=== PATIENT | female | born 1945 | race Caucasian/White ===

== ENCOUNTER 2018-10-09 10:58 | Emergency (ER) | payer MEDICARE, OTHER ==
[2018-10-09] MEDS ORDERED: VECURONIUM BROMIDE INJ 10 MG VIAL IV ONE ×2 (11:04→13:39)
--- NOTE | 2018-10-09 11:07 | ER Document Report ---
ED Respiratory Problem - General Mode of Arrival: Medic Information source: Relative, Emergency Med Personnel <ESTRELLITA HOFF - Last Filed: 10/09/18 16:14> <ZAHRAVIRYSAGE - Last Filed: 10/09/18 16:19> - General Chief Complaint: Respiratory Distress Stated Complaint: DIFFICULTY BREATHING Notes: 73 year old female that presents to the emergency department today for altered mental status. EMS states they were called for a "possible stroke". EMS reports that the told him that the patient had been "sitting in the same seat since 1600 yesterday". EMS states that the patient was confused upon arrival with an oxygen saturation of 60% with a heart rate of 120. EMS states that the was unable to provide any meaningful history and denied any history of past medical problems. Speaking to the shortly after arrival he did not provide any history of meaningful past medical problems but upon review of records it does state that the patient has renal insufficiency. (ESTRELLITA HOFF) - Related Data Allergies/Adverse Reactions: No Known Allergies Allergy (Verified 10/09/18 13:16) Past Medical History - General Information source: Relative, Emergency Med Personnel Cannot obtain history due to: Altered mental status - Social History Smoking Status: Current Every Day Smoker Cigarette use (# per day): Yes Family History: Reviewed & Not Pertinent Renal/ Medical History: Reports: Hx Renal Insufficiency <ESTRELLITA HOFF - Last Filed: 10/09/18 16:14> Review of Systems - Review of Systems -: Yes ROS unobtainable due to patient's medical condition <ESTRELLITA HOFF - Last Filed: 10/09/18 16:14> Physical Exam <ESTRELLITA HOFF - Last Filed: 10/09/18 16:14> - Vital signs Vitals: Resp Pulse Ox 28 H 100 10/09/18 11:00 10/09/18 11:00 - Notes Notes: PHYSICAL EXAM GENERAL: Unresponsive. Being bagged by EMS. HEAD: Normocephalic, atraumatic. EYES: Pupils equal, round, and reactive to light. ENT: Oral mucosa moist, tongue midline. Edentulous, upper dentures in place. Tooth #9 is chipped. NECK: Trachea midline. LUNGS: Very rapid and very shallow breathing. Wheezing and crackles bilaterally. HEART: Tachycardic, regular rhythm. No murmurs, gallops, or rubs. EXTREMITIES: Moves all 4 extremities spontaneously. No edema. NEUROLOGICAL: Unresponsive. Does not follow commands. Withdraws to pain. Slight movements to shouting. SKIN: Warm, dry, normal turgor. No rashes or lesions noted. Ecchymosis in various stages of healing. (ESTRELLITA HOFF) Course - Laboratory Result Diagrams: 10/09/18 11:01 10/09/18 11:01 <ESTRELLITA HOFF - Last Filed: 10/09/18 16:14> - Laboratory Result Diagrams: 10/09/18 11:01 10/09/18 11:01 <SAGE GUSTAFSON - Last Filed: 10/09/18 16:19> - Re-evaluation Re-evalutation: 10/09/18 13:51 On arrival patient was not maintaining her own airway well, was breathing very shallowly and very rapidly, not oxygenating well so the decision was made to intubate her. We did discuss with the in advance who states that she does not have any living will or desire not to be intubated. Gave us verbal permission to intubate the patient. Intubation went well without any diffic ulty, patient did become somewhat hypotensive so a left-sided IJ was started, pressure then recovered with a liter of fluid so initially pressors were not started however after approximately 2 hours on the ventilator pressure did decrease so she is being started on a small amount of levo fed, chest x-ray shows COPD and is some cephalization consistent with pulmonary vascular congestion, CBC shows leukocytosis with white count of 18.5, hemoglobin is low with a hemoglobin of 7.9, patient is being given 1 unit of PRBCs and then will be rechecked, platelets high at 452, INR slightly prolonged at 1.1, initial venous blood gas shows a pH of 7.11 and a PCO2 of 98.5, blood gas was rechecked 30 minutes later and even though it was put in for an arterial blood gas it appears to be venous, this shows a pH of 7.21 and a PCO2 of 70.3, this is improving, this is thought to be venous as the saturation is 81.1 and this is not at all close to what her oxygen saturation was at the time that this blood g as was drawn, she does have a BUN of 34 and a creatinine of 1.6, patient is known to have renal failure by review of records however we do not have old BUN and creatinine to compare to, only a record that she has seen Dr. Waters, lactic acid is normal, AST and ALT are both elevated alk phos is normal, CK, CK- MB and troponin are all elevated at 582, with 12.3, 0.468 respectively, patient also has elevated proBNP at 14,800. All this is consistent with a patient who is having an acute hypoxic hypercapnic exacerbation of COPD causing renal failure, non-STEMI and congestive heart failure. Patient is getting Lasix, aspirin per rectum, heparin drip and pressors. is aware of all of this, agrees with decision to transfer, request transferred to [facility]. Discussed patient with Dr. Naidu at [facility] who agrees to accept the patient to his service and is in the cardiovascular ICU. Patient is not eligible for admission to this hospital as she has new onset congestive failure in the setting of a non-STEMI. 10/09/18 16:18 Late entry, I did personally recheck the patient with the helicopter crew at bedside, presented the patient and history to the helicopter crew. Patient was stable for transport at that time. (SAGE GUSTAFSON) - Vital Signs Vital signs: Temp Pulse Resp BP Pulse Ox 16 127/58 H 94 10/09/18 14:51 10/09/18 14:54 10/09/18 14:54 - Laboratory Laboratory results interpreted by me: 10/09/18 10/09/18 10/09/18 11:01 11:01 11:01 WBC 18.5 H RBC 3.48 L Hgb 7.9 L Hct 27.5 L MCV 79 L MCH 22.8 L MCHC 28.9 L RDW 19.1 H Plt Count 452 H Seg Neutrophils % 81.9 H Lymphocytes % 10.8 L Absolute Neutrophils 15.2 H Carbonic Acid ABG pH ABG pCO2 ABG pO2 ABG HCO3 ABG Total CO2 ABG O2 Saturation VBG pH 7.11 L* VBG pCO2 98.5 H* BUN 34 H Creatinine 1.60 H Est GFR ( Amer) 38 L Est GFR (Non-Af Amer) 31 L Glucose 130 H AST 473 H ALT 164 H Creatine Kinase 582 H CK-MB (CK-2) NT-Pro-B Natriuret Pep Urine Protein Urine Blood Crossmatch 10/09/18 10/09/18 10/09/18 11:01 11:01 11:38 WBC RBC Hgb Hct MCV MCH MCHC RDW Plt Count Seg Neutrophils % Lymphocytes % Absolute Neutrophils Carbonic Acid 2.12 H ABG pH 7.21 L ABG pCO2 70.3 H* ABG pO2 55.3 L ABG HCO3 27.7 H ABG Total CO2 29.9 H ABG O2 Saturation 81.1 L VBG pH VBG pCO2 BUN Creatinine Est GFR ( Amer) Est GFR (Non-Af Amer) Glucose AST ALT Creatine Kinase CK-MB (CK-2) 12.30 H NT-Pro-B Natriuret Pep 13363 H Urine Protein Urine Blood Crossmatch 10/09/18 10/09/18 10/09/18 12:04 13:19 14:11 WBC RBC Hgb Hct MCV MCH MCHC RDW Plt Count Seg Neutrophils % Lymphocytes % Absolute Neutrophils Carbonic Acid 1.85 H ABG pH 7.24 L ABG pCO2 61.4 H ABG pO2 65.4 L ABG HCO3 25.9 H ABG Total CO2 27.8 H ABG O2 Saturation 88.8 L VBG pH VBG pCO2 BUN Creatinine Est GFR ( Amer) Est GFR (Non-Af Amer) Glucose AST ALT Creatine Kinase CK-MB (CK-2) NT-Pro-B Natriuret Pep Urine Protein 30 H Urine Blood SMALL H Crossmatch See Detail - EKG Interpretation by Me Additional EKG results interpreted by me: 10/09/18 13:52 EKG shows sinus tachycardia at a rate of 105, normal axis, normal intervals, no ST segment elevations or depressions, no T wave inversions per my interpretation. (SAGE GUSTAFSON) Procedures - Central Line Left Internal jugular Consent obtained: No - emergent Central line pre-insertion: Sterile PPE donned, Chloraprep applied, Sterile drapes applied Central line size (Fr.): 20 Central line lumen type: Triple Ultrasound guided: Yes CM at insertion site: 18 Line secured with sutures: Yes Central line post-insertion: Blood return from lumens, Biopatch applied, Sutured, Sterile dressing applied, Position confirmed w/ CXR Number of attempts: 1 Complications: No - Intubation Orotracheal Airway evaluation: Normal anatomy Mallampati Classification: Class 2 Medications: Etomidate, Vecuronium Intubation method: Orotracheal Blade type: Carolina Blade size: 4 ETT size: 8.0 ETT secured at: Gums ETT secured at (cm): 22 Breath Sounds after Intubation: Equal End tidal CO2 confirmed: Yes Ventilator settings: SIMV Tidal volume: 400 FiO2: 60 Respirations: 16 Pressure support: 10 PEEP: 5 Post Intubation Xray: Yes Intubation Complications: No complications <SAGE GUSTAFSON - Last Filed: 10/09/18 16:19> Critical Care Note - Critical Care Note Total time excluding time spent on procedures (mins): 85 <SAGE GUSTAFSON - Last Filed: 10/09/18 16:19> Discharge <ESTRELLITA HOFF - Last Filed: 10/09/18 16:14> <SAGE GUSTAFSON - Last Filed: 10/09/18 16:19> - Discharge Clinical Impression: Acute respiratory failure with hypoxia and hypercapnia, NSTEMI (non-ST elevated myocardial infarction) Congestive heart failure Qualifiers: Heart failure type: unspecified Heart failure chronicity: acute Qualified Code(s): I50.9 - Heart failure, unspecified Kidney failure Qualifiers: Renal failure chronicity: chronic Chronic kidney disease stage: stage 3 (moderate) Qualified Code(s): N18.3 - Chronic kidney disease, stage 3 (moderate) Anemia Qualifiers: Anemia type: unspecified type Qualified Code(s): D64.9 - Anemia, unspecified Condition: Critical Disposition: [facility] Referrals: GENESIS HARDIN MD [NO LOCAL MD] - Follow up as needed Scribe Attestation: 10/09/18 16:19 I personally performed the services described in the documentation, reviewed and edited the documentation which was dictated to the scribe in my presence, and it accurately records my words and actions. (SAGE GUSTAFSON) Scribe Documentation - Scribe Written by Xavier:: Xavier Marroquin, 10/09/2018 1528 acting as scribe for :: Eleazar <ESTRELLITA HOFF - Last Filed: 10/09/18 16:14>
[2018-10-09] MEDS ORDERED: MIDAZOLAM HCL 50 MG/100 ML RTUINJ ONE (11:11)
[2018-10-09] MEDS ORDERED: ETOMIDATE INJ/PF 20 MG/10 ML SDV IV ONE ×2 (11:11→13:39)
[2018-10-09] MEDS ORDERED: NORMAL SALINE 1000 ML 1,000 ML IV ONE (11:14)
[2018-10-09 11:37] LABS: VENOUS BLOOD BASE EXCESS -0.5 mmol/L; VENOUS BLOOD HCO3 30.2 mmol/L (20-32)
[2018-10-09 11:39] LABS: ABSOLUTE MONOCYTES (AUTO) 1.3 10^3/uL (0.1-1.4); ABSOLUTE NEUT (AUTO) 15.2 10^3/uL (1.7-8.2); BASOPHILS % (AUTO) 0.2 % (0-2); HEMATOCRIT 27.5 % (36.0-47.0); LYMPHOCYTES % (AUTO) 10.8 % (13-45); MEAN CORPUSCULAR HEMOGLOBIN 22.8 pg (27.0-33.4); MEAN CORPUSCULAR HGB CONC 28.9 g/dL (32.0-36.0); MEAN CORPUSCULAR VOLUME 79 fl (80-97); MONOCYTES % (AUTO) 7.1 % (3-13); PLATELET COUNT 452 10^3/uL (150-450); RED BLOOD COUNT 3.48 10^6/uL (3.72-5.28); RED CELL DISTRIBUTION WIDTH 19.1 % (11.5-14.0); SEGMENTED NEUTROPHILS % (AUTO) 81.9 % (42-78); TOTAL CELLS COUNTED % (AUTO) 100 %; VENOUS BLOOD PCO2 98.5 mmHg (35-63); VENOUS BLOOD PH 7.11 (7.30-7.42); WHITE BLOOD COUNT 18.5 10^3/uL (4.0-10.5)
[2018-10-09 11:40] LABS: PROTHROMBIN TIME 14.8 SEC (11.4-15.4)
[2018-10-09] MEDS ORDERED: MIDAZOLAM HCL 50 MG/100 ML RTUINJ IV PRN ×2 (11:42→13:39)
[2018-10-09 11:43] LABS: HEMOGLOBIN 7.9 g/dL (12.0-15.5)
[2018-10-09 11:44] LABS: ALANINE AMINOTRANSFERASE 164 U/L (9-52); ALBUMIN 3.6 g/dL (3.5-5.0); ALKALINE PHOSPHATASE 102 U/L (38-126); ANION GAP 7 (5-19); ASPARTATE AMINO TRANSFERASE 473 U/L (14-36); BILIRUBIN,DIRECT 0.3 mg/dL (0.0-0.4); BILIRUBIN,TOTAL 0.4 mg/dL (0.2-1.3); BLOOD UREA NITROGEN 34 mg/dL (7-20); CALCIUM 8.5 mg/dL (8.4-10.2); CARBON DIOXIDE 30 mmol/L (22-30); CHLORIDE 102 mmol/L (98-107); CREATINE KINASE 582 U/L (30-135); GLUCOSE 130 mg/dL (75-110); POTASSIUM 4.8 mmol/L (3.6-5.0); SODIUM 138.5 mmol/L (137-145); TOTAL PROTEIN 7.1 g/dL (6.3-8.2)
[2018-10-09] MEDS ORDERED: NORMAL SALINE 250 ML IV PRN (11:44)
--- NOTE | 2018-10-09 11:45 | RADIOLOGY REPORT (SQ) ---
EXAM DESCRIPTION: CHEST SINGLE VIEW COMPLETED DATE/TIME: 10/09/2018 11:27 am REASON FOR STUDY: intubation COMPARISON: None. NUMBER OF VIEWS: One view. TECHNIQUE: Single frontal radiographic view of the chest acquired. LIMITATIONS: None. FINDINGS: LUNGS AND PLEURA: No opacities, masses or pneumothorax. No pleural effusion. Attenuated bl ood vessels and flattened sanchez-diaphragms. MEDIASTINUM AND HILAR STRUCTURES: No masses. Contour normal. HEART AND VASCULAR STRUCTURES: Heart normal in size. Normal vasculature. BONES: No acute findings. HARDWARE: Endotracheal tube with the tip located 2 cm proximal to the shay. Nasogastric tube with the tip located in the stomach. OTHER: No other significant finding. IMPRESSION: 1. LIFE LINES DESCRIBED IN SATISFACTORY POSITION. 2. COPD. NO ACUTE RADIOGRAPHIC FINDING IN THE CHEST. TECHNICAL DOCUMENTATION: JOB ID: [id number] [employer]- All Rights Reserved Reading location - IP/workstation name: [email or web address]
[2018-10-09 11:53] LABS: ARTERIAL BLOOD BASE EXCESS -0.4 mmol/L; ARTERIAL BLOOD H2CO3 2.12 mmol/L (1.05-1.35); ARTERIAL BLOOD HCO3 27.7 mmol/L (20-24); ARTERIAL BLOOD O2 SATURATION 81.1 % (94-98); ARTERIAL BLOOD PH 7.21 (7.35-7.45); ARTERIAL BLOOD PO2 55.3 mmHg (80-100); ARTERIAL BLOOD TOTAL CO2 29.9 mmol/L (21-25)
[2018-10-09 11:55] LABS: ARTERIAL BLOOD FIO2 60%
[2018-10-09 11:56] LABS: CREATINE KINASE MB 12.3 ng/mL (<4.55)
[2018-10-09 11:57] LABS: ARTERIAL BLOOD PCO2 70.3 mmHg (35-45)
[2018-10-09 11:58] LABS: TROPONIN I 0.468 ng/mL
[2018-10-09] MEDS ORDERED: NORMAL SALINE 1000 ML 1,000 ML IV PRN (12:17)
[2018-10-09] MEDS ORDERED: FUROSEMIDE INJ/PF 40 MG/4 ML SDV IV ONE (12:26)
[2018-10-09] MEDS ORDERED: ALBUTEROL SULFATE 0.083% NEB 2.5 MG/3 ML AMPUL NEB ONE (12:53)
[2018-10-09] MEDS ORDERED: ASPIRIN 300 MG SUPP, RECTAL PR ONE (12:53)
[2018-10-09] MEDS ORDERED: METHYLPREDNISOLONE INJ 125 MG/2 ML SDV IV ONE (12:53)
[2018-10-09] MEDS ORDERED: IPRATROPIUM/ALBUTEROL 0.5-2.5 MG/3 ML AMPUL NEB ONE (12:53)
[2018-10-09] MEDS ORDERED: HEPARIN SOD (PORCINE) 1,000 UNIT/ML 1 ML VIAL IV SCH (13:00)
--- NOTE | 2018-10-09 13:28 | RADIOLOGY REPORT (SQ) ---
EXAM DESCRIPTION: CHEST SINGLE VIEW COMPLETED DATE/TIME: 10/09/2018 1:16 pm REASON FOR STUDY: post-intubation COMPARISON: Earlier exam same date NUMBER OF VIEWS: One view. TECHNIQUE: Single frontal radiographic image of the chest acquired. LIMITATIONS: None. FINDINGS: ENDOTRACHEAL TUBE: Tip appears 2.1 cm above the level of the shay. OTHER SUPPORT DEVICES: New left IJ central venous catheter with tip overlying the RA -SVC junction. No pneumothorax. Nasogastric catheter tip is beyond the inferior margin of the image overlying the r egion of the stomach. CHANGES IN RADIOGRAPHIC FINDINGS: None. Stable appearance. HARDWARE: None in the chest. OTHER: No other significant finding. IMPRESSION: New left IJ central venous catheter with tip overlying the RA -SVC junction, no pneumoth orax. The remaining tubes lines are stable. TECHNICAL DOCUMENTATION: JOB ID: [id number] [place]-[id number] 2010 [employer]- All Rights Reserved Reading location - IP/workstation name: [email or web address]
[2018-10-09] MEDS ORDERED: DEXTROSE 5%-WATER 250 ML with NOREPINEPHRINE BITARTRATE 4 MG IV PRN ×2 (13:39)
[2018-10-09] MEDS ORDERED: NOREPINEPHRINE BITARTRATE INJ/PF 4 MG/4 ML SDV IV ONE (13:43)
[2018-10-09 13:45] LABS: APPEARANCE,URINE CLEAR; BILIRUBIN,URINE NEGATIVE (NEGATIVE); COLOR,URINE YELLOW; GLUCOSE, URINE NEGATIVE (NEGATIVE); KETONES,URINE NEGATIVE (NEGATIVE); LEUKOCYTE ESTERASE,URINE NEGATIVE (NEGATIVE); NITRITE,URINE NEGATIVE (NEGATIVE); PROTEIN,URINE 30 mg/dL (NEGATIVE); URINE SPECIFIC GRAVITY 1.015; UROBILINOGEN,URINE NEGATIVE mg/dL (<2.0)
[2018-10-09 14:20] LABS: ARTERIAL BLOOD BASE EXCESS -1.8 mmol/L; ARTERIAL BLOOD FIO2 50%; ARTERIAL BLOOD H2CO3 1.85 mmol/L (1.05-1.35); ARTERIAL BLOOD HCO3 25.9 mmol/L (20-24); ARTERIAL BLOOD O2 SATURATION 88.8 % (94-98); ARTERIAL BLOOD PCO2 61.4 mmHg (35-45); ARTERIAL BLOOD PH 7.24 (7.35-7.45); ARTERIAL BLOOD PO2 65.4 mmHg (80-100); ARTERIAL BLOOD TOTAL CO2 27.8 mmol/L (21-25)
[2018-10-09] MEDS ORDERED: SUCCINYLCHOLINE CHLORIDE INJ 200 MG/10 ML VIAL ONE (15:00)
[2018-10-09 15:12] VITALS: BP 127/58
--- NOTE | 2018-10-09 23:48 | EKG REPORT ---
SEVERITY:- OTHERWISE NORMAL ECG - SINUS TACHYCARDIA : Confirmed by: Malina Holt 09-Oct-2018 23:47:08
== END 2018-10-09 15:13 | disposition short-term general hospital (02) ==
LOC: ER 10:58
DX: I50.9 Heart failure, unspecified (principal); I21.4 Non-ST elevation (NSTEMI) myocardial infarction; J96.02 Acute respiratory failure with hypercapnia; J96.01 Acute respiratory failure with hypoxia; N18.3 Chronic kidney disease, stage 3 (moderate); D63.1 Anemia in chronic kidney disease; J44.9 Chronic obstructive pulmonary disease, unspecified; F17.210 Nicotine dependence, cigarettes, uncomplicated; R58 Hemorrhage, not elsewhere classified; K08.89 Other specified disorders of teeth and supporting structures; D72.829 Elevated white blood cell count, unspecified; R00.0 Tachycardia, unspecified
CPT/HCPCS: 93005; 94640; 99291; 99292; 96361; 51702; 96374; 96375; 86900; 86901; 36415; 87040; 87086; 82553; 36430; 86850; 82803 ×2; 82550; 85025; 85610; 80053; 81001; 84484; 86920; 83605; 83880; 71045; 94660; 93010; 31500; 36556; P9016; A9270 ×3; J1940; J3490 ×3; J2930; J0330; J7060; J7030; J7620

== ENCOUNTER 2019-10-20 20:36 | Observation (INO) | payer MEDICARE ==
[2019-10-20 21:38] LABS: ALBUMIN 2.6 g/dL (3.5-5.0); ALKALINE PHOSPHATASE 179 U/L (38-126); ANION GAP 5 (5-19); ASPARTATE AMINO TRANSFERASE 35 U/L (14-36); BILIRUBIN,DIRECT 0.5 mg/dL (0.0-0.4); BILIRUBIN,TOTAL 0.5 mg/dL (0.2-1.3); BLOOD UREA NITROGEN 17 mg/dL (7-20); CALCIUM 8.3 mg/dL (8.4-10.2); CARBON DIOXIDE 29 mmol/L (22-30); CHLORIDE 105 mmol/L (98-107); GLUCOSE 151 mg/dL (75-110); HEMATOCRIT 21.8 % (36.0-47.0); MEAN CORPUSCULAR HEMOGLOBIN 30.5 pg (27.0-33.4); MEAN CORPUSCULAR HGB CONC 30.4 g/dL (32.0-36.0); MEAN CORPUSCULAR VOLUME 100 fl (80-97); PLATELET COUNT 431 10^3/uL (150-450); POTASSIUM 4.5 mmol/L (3.6-5.0); RED BLOOD COUNT 2.18 10^6/uL (3.72-5.28); TOTAL PROTEIN 6.2 g/dL (6.3-8.2); WHITE BLOOD COUNT 7.4 10^3/uL (4.0-10.5)
[2019-10-20 21:40] LABS: HEMOGLOBIN 6.6 g/dL (12.0-15.5)
[2019-10-20 21:41] LABS: INTERNATIONAL RATION (INR) 2.05; PROTHROMBIN TIME 23.4 SEC (11.4-15.4)
[2019-10-20 22:02] LABS: ABSOLUTE LYMPHOCYTES# (MANUAL) 0.4 10^3/uL (0.5-4.7); ANISOCYTOSIS 4+; BASOPHILS % (MANUAL) 0 % (0-2); EOSINOPHILS % (MANUAL) 0 % (0-6); HYPOCHROMASIA 2+; LYMPHOCYTES % (MANUAL) 5 % (13-45); MONOCYTES % (MANUAL) 0 % (3-13); POLYCHROMASIA SLIGHT; SEGMENTED NEUTROPHILS % (MAN) 95 % (42-78); TOTAL CELLS COUNTED 100
[2019-10-20 22:03] LABS: PLATELET COMMENT ADEQUATE
[2019-10-21] MEDS ORDERED: NORMAL SALINE 250 ML IV PRN (01:20)
--- NOTE | 2019-10-21 02:12 | ER Document Report ---
ED General - General TRAVEL OUTSIDE OF THE [place] IN LAST 30 DAYS: No <ERVINVALDO Irina - Last Filed: 10/21/19 07:43> <KRISTOFER WOOD - Last Filed: 10/21/19 21:37> - General Chief Complaint: Abnormal Lab Results Stated Complaint: WEAKNESS Time Seen by Provider: 10/21/19 01:02 Notes: 74-year-old female presenting from [place] presents for decreased hemoglobin. Patient states she is got a history of anemia and has required a blood transfusion in the past. Patient denies bleeding from anywhere or blood in her stools. Patient also states she has been coughing for the past few days. Patient was recently diagnosed with pneumonia 1 to 2 weeks ago and finished her antibiotics. Patient denies any chest pain, shortness of breath, dizziness, fever, abdominal pain, nausea/vomiting. Patient has a right tib-fib fracture that she currently is wearing a brace for her. (VALDO ERVIN) - Related Data Allergies/Adverse Reactions: No Known Allergies Allergy (Verified 10/09/18 13:16) Past Medical History - Social History Smoking Status: Former Smoker Family History: Reviewed & Not Pertinent Patient has suicidal ideation: No Patient has homicidal ideation: No Renal/ Medical History: Reports: Hx Renal Insufficiency. Denies: Hx Peritoneal Dialysis <VALDO ERVIN - Last Filed: 10/21/19 07:43> Review of Systems <VALDO ERVIN - Last Filed: 10/21/19 07:43> - Review of Systems Notes: Constitutional: Negative for fever. HENT: Negative for sore throat. Eyes: Negative for visual changes. Cardiovascular: Negative for chest pain. Respiratory: Negative for shortness of breath. Gastrointestinal: Negative for abdominal pain, vomiting or diarrhea. Genitourinary: Negative for dysuria. Musculoskeletal: Negative for back pain. Skin: Negative for rash. Neurological: Negative for headaches, weakness or numbness. 10 point ROS negative except as marked above and in HPI. (VALDO ERVIN) Physical Exam <VALDO ERVIN - Last Filed: 10/21/19 07:43> - Vital signs Vitals: Resp Pulse Ox 31 H 96 10/20/19 20:46 10/20/19 20:46 - Notes Notes: GENERAL: Well-appearing, well-nourished and in no acute distress. HEAD: Atraumatic, normocephalic. EYES: Extraocular movements intact, sclera anicteric, conjunctiva are normal. NECK: Normal range of motion, supple without lymphadenopathy or JVD. LUNGS: Breath sounds clear to auscultation bilaterally and equal. No wheezes rales or rhonchi. HEART: Regular rate and rhythm without murmurs, rubs or gallops. ABDOMEN: Soft, nontender. No guarding, no rebound. No masses appreciated. RECTAL: No gross blood. Fecal hemoccult positive. EXTREMITIES: Brace to right lower leg. NEUROLOGICAL: Cranial nerves II through XII grossly intact. Normal speech. PSYCH: Normal mood, normal affect. SKIN: Warm, Dry, normal turgor, no rashes or lesions noted. (VALDO ERVIN) Course - Laboratory Result Diagrams: 10/20/19 20:55 10/20/19 20:55 <VALDO ERVIN - Last Filed: 10/21/19 07:43> - Laboratory Result Diagrams: 10/21/19 10:35 10/20/19 20:55 <KRISTOFER WOOD - Last Filed: 10/21/19 21:37> - Re-evaluation Re-evalutation: 10/21/19 74-year-old female sent [facility] from [facility] due to low hemoglobin. Patient states she has also been coughing for the past couple days. Patient denies any dyspnea, chest pain, dizziness, bleeding from anywhere, blood in her stools. Patient has a history of anemia and has required blood transfusions in the past. Abdomen soft nontender. Lungs clear to auscultation bilaterally. Re gular rate and rhythm. PE is otherwise unremarkable. Fecal Hemoccult was positive. When patient's hemoglobin is trended highest is 8 in our system. Patient's hemoglobin here is 6.6. 2 units of blood were ordered. 10/21/19 02:35 discussed patient with attending, Dr. Isabel, states that positive fecal Hemoccults can be common in elderly. Attending also evaluated labs and vital signs and states to transfuse couple units and recheck CBC. As long as patient's vitals remained stable and patient remains symptom-free patient can go back to [facility] and have outpatient work-up of positive fecal Hemoccult. 10/21/19 07:22 RN states pt's pressure is 88/44. 2 L lactated ringers ordered. 10/21/19 07:46 CXR negative for pneumonia. (VALDO ERVIN) 10/21/19 09:15 It was brought to my attention that the patient's blood pressure was low with a map of 52. Patient has already received 2 L of fluids and is almost done with her second unit of blood. 10/21/19 09:[address] Ervin, as the patient states that Dr. Ervin is her primary care provider. He states that he does not see any patients that are in [facility]. I looked at her medical record and Paula Lemons is her primary care provider. The nurse then called me to bedside and stated that the patient did not want to be admitted. I spoke to the patient and explained to her that if I sent her back to [place] with a low blood pressure, she will most likely be back here in the emergency department. I then called Adriana, the social worker masters condenser tester. She will come to speak with the patient. 10/21/19 11:44 I spoke with Adriaan, the social worker masters who spoke with the patient and she states the patient is in agreement with being admitted to the hospital. 10/21/19 11:[address] Rivera, he will come to assess the patient. 10/21/19 12:53 Patient was changed, as she was wet. She then became short of breath. Patient has COPD. Expiratory wheezes noted. I will go ahead and order her a DuoNeb treatment. 10/21/19 13:00 Patient will be admitted to the telemetry unit under Dr. Rivera. (KRISTOFER WOOD) - Vital Signs Vital signs: Temp Pulse Resp BP Pulse Ox 97.9 F 91 18 109/38 L 93 10/21/19 17:15 10/21/19 17:15 10/21/19 17:15 10/21/19 17:15 10/21/19 17:15 - Laboratory Laboratory results interpreted by me: 10/20/19 10/20/19 10/20/19 20:55 20:55 20:55 RBC 2.18 L Hgb 6.6 L Hct 21.8 L MCV 100 H MCHC 30.4 L RDW 29.0 H Seg Neuts % (Manual) 95 H Lymphocytes % (Manual) 5 L Monocytes % (Manual) 0 L Abs Neuts (Manual) Abs Lymphs (Manual) 0.4 L Abs Monocytes (Manual) 0.0 L PT 23.4 H Glucose 151 H Calcium 8.3 L Direct Bilirubin 0.5 H Alkaline Phosphatase 179 H Total Protein 6.2 L Albumin 2.6 L Crossmatch 10/20/19 10/21/19 20:55 10:35 RBC 3.13 L Hgb 9.5 L D Hct 28.7 L MCV MCHC RDW 23.4 H Seg Neuts % (Manual) 90 H Lymphocytes % (Manual) 6 L Monocytes % (Manual) Abs Neuts (Manual) 8.7 H Abs Lymphs (Manual) Abs Monocytes (Manual) PT Glucose Calcium Direct Bilirubin Alkaline Phosphatase Total Protein Albumin Crossmatch See Detail Discharge <VALDO ERVIN R - Last Filed: 10/21/19 07:43> - Discharge Admitting Provider: Nicole (Hospitalist) Unit Admitted: Telemetry <KRISTOFER WOOD - Last Filed: 10/21/19 21:37> - Discharge Clinical Impression: positive fecal hemoccult, Cough Anemia Qualifiers: Anemia type: unspecified type Qualified Code(s): D64.9 - Anemia, unspecified Condition: Stable Disposition: ADMITTED OBSERVATION
--- NOTE | 2019-10-21 02:39 | RADIOLOGY REPORT (SQ) ---
EXAM DESCRIPTION: XR CHEST 1 VIEW COMPLETED DATE/TME: 10/21/2019 01:51 CLINICAL HISTORY: 74 years, Female, cough x few days COMPARISON: 2018 NUMBER OF VIEWS: Single TECHNIQUE: LIMITATIONS: None. FINDINGS: Cardiomediastinal silhouette is prominent. The lungs demonstrate chronic changes. Crowding at the bases. No significant pleural fluid. No pneumothorax. IMPRESSION: Mild progressive crowding at the bases copyright 2010 [employer]- All Rights Reserved
[2019-10-21] MEDS ORDERED: HYDROCODONE/ACETAMINOPHEN 5-325 MG TABLET PO ONE (03:14)
[2019-10-21] MEDS: RINGERS SOLUTION,LACTATED 1,000 ML IV PRN ×2 (09:44→10:44)
[2019-10-21 11:02] LABS: HEMATOCRIT 28.7 % (36.0-47.0); MEAN CORPUSCULAR HEMOGLOBIN 30.2 pg (27.0-33.4); MEAN CORPUSCULAR HGB CONC 32.9 g/dL (32.0-36.0); PLATELET COUNT 314 10^3/uL (150-450); RED BLOOD COUNT 3.13 10^6/uL (3.72-5.28); RED CELL DISTRIBUTION WIDTH 23.4 % (11.5-14.0); WHITE BLOOD COUNT 9.7 10^3/uL (4.0-10.5)
[2019-10-21 11:25] LABS: HEMOGLOBIN 9.5 g/dL (12.0-15.5); MEAN CORPUSCULAR VOLUME 92 fl (80-97)
[2019-10-21 11:27] LABS: ABSOLUTE LYMPHOCYTES# (MANUAL) 0.6 10^3/uL (0.5-4.7); ABSOLUTE MONOCYTES # (MANUAL) 0.4 10^3/uL (0.1-1.4); BASOPHILS % (MANUAL) 0 % (0-2); EOSINOPHILS % (MANUAL) 0 % (0-6); LYMPHOCYTES % (MANUAL) 6 % (13-45); MONOCYTES % (MANUAL) 4 % (3-13); SEGMENTED NEUTROPHILS % (MAN) 90 % (42-78); TOTAL CELLS COUNTED 100
[2019-10-21 11:28] LABS: ANISOCYTOSIS 3+; PLATELET COMMENT ADEQUATE; POLYCHROMASIA SLIGHT
[2019-10-21] MEDS ORDERED: IPRATROPIUM/ALBUTEROL 0.5-2.5 MG/3 ML AMPUL NEB ONE (12:50)
--- NOTE | 2019-10-21 13:33 | PDOC H&P ---
History of Present Illness Admission Date/PCP: ABBEY ARRIOLA MD Patient complains of: Shortness of breath History of Present Illness: CEFERINO MOSELEY is a 74 year old female with a history of COPD, chronic anemia on outpatient transfusions with Dr. Thomas, recent fracture, anxiety who [facility] the [facility] after blood work revealed anemia with a hemoglobin of 6. In the ER, initial hemoglobin was 6.6 and patient subsequently received 2 units of blood. Patient was initially planned for discharge however was noted to have hypotension even after the transfusion prompting consultation of hospitalist service for admission. Patient does endorse some shortness of breath for the past 3 to 4 days. Denies any chest pain. The shortness of breath is more on ambulation than rest. Denies orthopnea or PND. Notified by family that patient recently experienced a fall a few weeks ago and had a tib- fib fracture of her right taylor followed by surgical fixation and reduction at [facility]. Subsequently placed on anticoagulation given immobility and sent to [facility] [employer] for rehabilitation. Patient denies any hemoptysis, hematemesis, melena or hematochezia. Patient daughter states patient had upper and lower endoscopy November 2018 which did not reveal any source of bleeding. This was done in [place]. Patient did have some hematuria at [facility] and CT scan was done which showed renal cyst. Past Medical History Cardiac Medical History: Denies: Congestive Heart Failure, Coronary Artery Disease, Myocardial Infarction Pulmonary Medical History: Reports: Chronic Obstructive Pulmonary Disease (COPD) Psychiatric Medical History: Reports: General Anxiety Disorder Hematology: Reports: Anemia Past Surgical History Past Surgical History: Reports: Orthopedic Surgery Social History Information Source: Patient, Relative Lives with: Assisted - acute rehab Smoking Status: Former Smoker Electronic Cigarette use?: No Frequency of Alcohol Use: None Hx Recreational Drug Use: No - Advance Directive Resuscitation Status: Do Not Resuscitate Family History Family History: Other - Denies hx of anemia in the family Parental Family History Reviewed: Yes Children Family History Reviewed: NA Sibling(s) Family History Reviewed.: NA Medication/Allergy Home Medications: No Home Medications 10/21/19 Allergies/Adverse Reactions: No Known Allergies Allergy (Verified 10/09/18 13:16) Review of Systems Constitutional: PRESENT: chills, fatigue. ABSENT: fever(s) Nose, Mouth, and Throat: ABSENT: headache(s) Cardiovascular: PRESENT: dyspnea on exertion. ABSENT: chest pain, orthropnea Respiratory: ABSENT: cough, dyspnea, hemoptysis Gastrointestinal: ABSENT: abdominal pain, diarrhea, hematemesis, hematochezia, melena, nausea, vomiting Genitourinary: ABSENT: dysuria, hematuria Integumentary: ABSENT: diaphoresis Neurological: ABSENT: confusion Psychiatric: PRESENT: anxiety Endocrine: ABSENT: polyuria Physical Exam Vital Signs: Temp Pulse Resp BP Pulse Ox 98.3 F 70 35 H 117/51 L 97 10/21/19 09:16 10/21/19 09:16 10/21/19 13:01 10/21/19 13:01 10/21/19 13:01 Intake & Output 10/20/19 10/21/19 10/22/19 06:59 06:59 06:59 Intake Total 300 2300 Balance 300 2300 Weight 63.957 kg General appearance: PRESENT: no acute distress, cooperative. ABSENT: morbidly obese Head exam: PRESENT: atraumatic Eye exam: ABSENT: periorbital swelling Neck exam: ABSENT: JVD Respiratory exam: PRESENT: symmetrical, unlabored, wheezes - inspiratory wheeze but very mild. ABSENT: accessory muscle use, retraction, rhonchi Cardiovascular exam: PRESENT: RRR, +S1, +S2. ABSENT: tachycardia Vascular exam: PRESENT: pallor GI/Abdominal exam: PRESENT: normal bowel sounds, soft. ABSENT: distended, rebound, rigid, tenderness Rectal exam: PRESENT: deferred Extremities exam: ABSENT: joint swelling, pedal edema Neurological exam: PRESENT: alert, awake Psychiatric exam: ABSENT: agitated, anxious Focused psych exam: ABSENT: pressured speech Skin exam: ABSENT: erythema, jaundice Results Laboratory Results: 10/21/19 10:35 10/20/19 20:55 10/20/19 10/20/19 10/20/19 20:55 20:55 20:55 WBC 7.4 RBC 2.18 L Hgb 6.6 L Hct 21.8 L MCV 100 H MCH 30.5 MCHC 30.4 L RDW 29.0 H Plt Count 431 Seg Neutrophils % Not Reportable Sodium 138.9 Potassium 4.5 Chloride 105 Carbon Dioxide 29 Anion Gap 5 BUN 17 Creatinine 0.59 Est GFR ( Amer) > 60 Glucose 151 H Calcium 8.3 L Total Bilirubin 0.5 AST 35 Alkaline Phosphatase 179 H Total Protein 6.2 L Albumin 2.6 L Blood Type O POSITIVE Antibody Screen POSITIVE 10/21/19 10:35 WBC 9.7 RBC 3.13 L Hgb 9.5 L D Hct 28.7 L MCV 92 D MCH 30.2 MCHC 32.9 RDW 23.4 H Plt Count 314 Seg Neutrophils % Not Reportable Sodium Potassium Chloride Carbon Dioxide Anion Gap BUN Creatinine Est GFR ( Amer) Glucose Calcium Total Bilirubin AST Alkaline Phosphatase Total Protein Albumin Blood Type Antibody Screen Impressions: Chest X-Ray 10/21/19 01:51 IMPRESSION: Mild progressive crowding at the bases copyright 2010 [employer]- All Rights Reserved Assessment and Plan - Diagnosis (1) Symptomatic anemia Is this a current diagnosis for this admission?: Yes Plan: Admit for observation Status post 2 units of PRBC with improvement of hemoglobin to 9.5 Already typed and screened Monitor H&H Patient currently denies any bleeding We will follow-up with Dr. Thomas in clinic to continue scheduled transfusions (2) Hypotension Qualifiers: Hypotension type: unspecified hypotension type Qualified Code(s): I95.9 - Hypotension, unspecified Is this a current diagnosis for this admission?: Yes Plan: No current bleeding per patient and notified by ER provider that rectal exam showed no gross blood. Give IVF and monitor BP on tele floor (3) Leg fracture, right Qualifiers: Encounter type: initial encounter Is this a current diagnosis for this admission?: Yes Plan: s/p surgical fixation/reduction at [facility] C/w supportive care and pain control Family states that patient is currently on Anticoagulation prophylactically. INR is 2. Will return to [facility] after hospitalization to continue short term rehab (4) Anxiety Is this a current diagnosis for this admission?: Yes Plan: Start on buspirone. C/w hydroxyzine prn. (5) Hypoxia Is this a current diagnosis for this admission?: Yes Plan: chronicity unknown but family states that she had home O2 in the past secondary to COPD but has been off it for several months with spo2 maintaining in the low 90s. Recently resumed on 2L nc at [facility] CXR image reviewed and unimpressive for infiltrates/edema Incentive spirometer (6) COPD (chronic obstructive pulmonary disease) Qualifiers: COPD type: emphysema Emphysema type: unspecified Qualified Code(s): J43.9 - Emphysema, unspecified Is this a current diagnosis for this admission?: Yes Plan: Nebs prn. Stable. - Time Time Spent with patient: 35 or more minutes
[2019-10-21] MEDS ORDERED: ACETAMINOPHEN 325 MG TABLET PO PRN (13:47)
[2019-10-21] MEDS ORDERED: NORMAL SALINE 1000 ML 1,000 ML IV PRN (13:47)
[2019-10-21] MEDS ORDERED: OXYCODONE-ACETAMINOPHEN 5-325 MG TABLET PO PRN (17:52)
[2019-10-21] MEDS ORDERED: HYDROXYZINE HCL 2 MG/ML SYRUP 60 ML PO PRN (17:56)
[2019-10-21] MEDS: IPRATROPIUM/ALBUTEROL 0.5-2.5 MG/3 ML AMPUL NEB PRN (20:18)
[2019-10-21] MEDS: BUSPIRONE HCL 10 MG TABLET PO SCH (21:59)
--- NOTE | 2019-10-21 23:25 | EKG REPORT ---
SEVERITY:- OTHERWISE NORMAL ECG - SINUS TACHYCARDIA : Confirmed by: Malina Holt 21-Oct-2019 23:25:14
[2019-10-22] MEDS: IPRATROPIUM/ALBUTEROL 0.5-2.5 MG/3 ML AMPUL NEB PRN ×2 (04:47→13:25)
[2019-10-22 05:59] LABS: HEMATOCRIT 32.1 % (36.0-47.0); HEMOGLOBIN 10.5 g/dL (12.0-15.5); MEAN CORPUSCULAR HEMOGLOBIN 30.2 pg (27.0-33.4); MEAN CORPUSCULAR HGB CONC 32.8 g/dL (32.0-36.0); MEAN CORPUSCULAR VOLUME 92 fl (80-97); PLATELET COUNT 368 10^3/uL (150-450); RED BLOOD COUNT 3.48 10^6/uL (3.72-5.28); WHITE BLOOD COUNT 9.5 10^3/uL (4.0-10.5)
[2019-10-22 06:24] LABS: ANION GAP 5 (5-19); BLOOD UREA NITROGEN 13 mg/dL (7-20); CARBON DIOXIDE 26 mmol/L (22-30); CHLORIDE 110 mmol/L (98-107); GLUCOSE 78 mg/dL (75-110)
--- NOTE | 2019-10-22 09:25 | PDOC TRANSFER SUMMARY ---
Impression - Admit/DC Date/PCP Admission Date/Primary Care Provider: 10/21/19 13:32 ABBEY ARRIOLA MD Discharge Date: 10/22/19 - Discharge Diagnosis (1) Symptomatic anemia Is this a current diagnosis for this admission?: Yes (2) Hypotension Is this a current diagnosis for this admission?: Yes (3) Leg fracture, right Is this a current diagnosis for this admission?: Yes (4) Anxiety Is this a current diagnosis for this admission?: Yes (5) Hypoxia Is this a current diagnosis for this admission?: Yes (6) COPD (chronic obstructive pulmonary disease) Is this a current diagnosis for this admission?: Yes - Additional Information Resuscitation Status: Do Not Resuscitate Discharge Diet: As Tolerated Discharge Activity: Activity As Tolerated Referrals: ABBEY ARRIOLA MD [Primary Care Provider] - Follow up in 3-5 days SANDRA TAVERA MD [ACTIVE STAFF] - Follow up as needed BRYN THOMAS MD [ACTIVE STAFF] - Home Medications: Buspirone HCl [Buspar 10 mg Tablet] 10 mg PO Q12 30 Days #0 tablet 10/22/19 History of Present Illiness History of Present Illness: CEFERINO MOSELEY is a 74 year old female with a history of COPD, chronic anemia on outpatient transfusions with Dr. Thomas, recent fracture, anxiety who presents to the hospital from [place] after blood work revealed anemia with a hemoglobin of 6. In the ER, initial hemoglobin was 6.6 and patient subsequently received 2 units of blood. Patient was initially planned for discharge however was noted to have hypotension even after the transfusion prompting consultation of hospitalist service for admission. Patient does endorse some shortness of breath for the past 3 to 4 days. Denies any chest pain. The shortness of breath is more on ambulation than rest. Denies orthopnea or PND. Notified by family that patient recently experienced a fall a few weeks ago and had a tib- fib fracture of her right talyor followed by surgical fixation and reduction at [facility]. Subsequently placed on anticoagulation given immobility and sent to [place] for rehabilitation. Patient denies any hemoptysis, hematemesis, melena or hematochezia. Patient daughter states patient had upper and lower endoscopy November 2018 which did not reveal any source of bleeding. This was done in [place]. Patient did have some hematuria at [facility] and CT scan was done which showed renal cyst. Hospital Course Hospital Course: On presentation, patient's hemoglobin was 6.6. Patient denied any evidence of bleeding. Rectal exam was negative for gross blood. Patient was noted to be mildly hypoxic in the high 80s requiring 2 L nasal cannula. She received 2 units of blood after which hypoxia improved. Patient has been maintaining SPO2 in the low to mid 90s on 2 L nasal cannula which is likely from her chronic COPD as chest x-ray was negative for any infiltrate, pulmonary edema or effusions. I recommend the patient continue to use an incentive spirometer every hour given her limited mobility and high risk of atelectasis. Continue with DVT prophylaxis while immobilized from recent surgery but also while monitoring weekly CBC. Patient's hemoglobin improved to 9.5 after transfusion yesterday and was monitored overnight and her hemoglobin this morning is 10. Patient does not require any repeat endoscopic evaluation at this time while in the hospital but this can be followed up in the outpatient setting if required. 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 Primary reason for admission was because of hypotension on presentation the patient's blood pressure has normalized with fluids and has been off IV fluids since last night but still maintaining normal blood pressures in the low 100s systolic. Patient is stable for discharge at this time. Physical Exam Vital Signs: Temp Pulse Resp BP Pulse Ox 97.8 F 77 18 127/50 H 91 L 10/22/19 00:05 10/22/19 04:49 10/22/19 04:49 10/22/19 00:05 10/22/19 00:05 Intake & Output 10/21/19 10/22/19 10/23/19 06:59 06:59 06:59 Intake Total 300 3300 Balance 300 3300 Weight 63.957 kg 59 kg General appearance: PRESENT: no acute distress, cooperative Neck exam: ABSENT: JVD Respiratory exam: PRESENT: clear to auscultation kiana Cardiovascular exam: PRESENT: +S1, +S2. ABSENT: tachycardia GI/Abdominal exam: PRESENT: soft Neurological exam: PRESENT: alert, awake Results Laboratory Results: WBC 9.5 10^3/uL (4.0-10.5) 10/22/19 05:04 RBC 3.48 10^6/uL (3.72-5.28) L 10/22/19 05:04 Hgb 10.5 g/dL (12.0-15.5) L 10/22/19 05:04 Hct 32.1 % (36.0-47.0) L 10/22/19 05:04 MCV 92 fl (80-97) 10/22/19 05:04 MCH 30.2 pg (27.0-33.4) 10/22/19 05:04 MCHC 32.8 g/dL (32.0-36.0) 10/22/19 05:04 RDW 24.0 % (11.5-14.0) H 10/22/19 05:04 Plt Count 368 10^3/uL (150-450) 10/22/19 05:04 Lymph % (Auto) Not Reportable 10/21/19 10:35 [place] % (Auto) Not Reportable 10/21/19 10:35 Eos % (Auto) Not Reportable 10/21/19 10:35 Baso % (Auto) Not Reportable 10/21/19 10:35 Absolute Neuts (auto) Not Reportable 10/21/19 10:35 Absolute Lymphs (auto) Not Reportable 10/21/19 10:35 Absolute Monos (auto) Not Reportable 10/21/19 10:35 Absolute Eos (auto) Not Reportable 10/21/19 10:35 Absolute Basos (auto) Not Reportable 10/21/19 10:35 Total Counted 100 10/21/19 10:35 Seg Neutrophils % Not Reportable 10/21/19 10:35 Seg Neuts % (Manual) 90 % (42-78) H 10/21/19 10:35 Lymphocytes % (Manual) 6 % (13-45) L 10/21/19 10:35 Monocytes % (Manual) 4 % (3-13) 10/21/19 10:35 Eosinophils % (Manual) 0 % (0-6) 10/21/19 10:35 Basophils % (Manual) 0 % (0-2) 10/21/19 10:35 Abs Neuts (Manual) 8.7 10^3/uL (1.7-8.2) H 10/21/19 10:35 Abs Lymphs (Manual) 0.6 10^3/uL (0.5-4.7) 10/21/19 10:35 Abs Monocytes (Manual) 0.4 10^3/uL (0.1-1.4) 10/21/19 10:35 Absolute Eos (Manual) 0.0 10^3/uL (0.0-0.6) 10/21/19 10:35 Abs Basophils (Manual) 0.0 10^3/uL (0.0-0.2) 10/21/19 10:35 Platelet Comment ADEQUATE 10/21/19 10:35 Polychromasia SLIGHT 10/21/19 10:35 Hypochromasia 2+ 10/20/19 20:55 Anisocytosis 3+ 10/21/19 10:35 Macrocytosis 1+ 10/20/19 20:55 PT 23.4 SEC (11.4-15.4) H 10/20/19 20:55 INR 2.05 10/20/19 20:55 Sodium 141.4 mmol/L (137-145) 10/22/19 05:04 Potassium 4.0 mmol/L (3.6-5.0) 10/22/19 05:04 Chloride 110 mmol/L (98-107) H 10/22/19 05:04 Carbon Dioxide 26 mmol/L (22-30) 10/22/19 05:04 Anion Gap 5 (5-19) 10/22/19 05:04 BUN 13 mg/dL (7-20) 10/22/19 05:04 Creatinine 0.52 mg/dL (0.52-1.25) 10/22/19 05:04 Est GFR ( Amer) > 60 (>60) 10/22/19 05:04 Est GFR (MDRD) Non-Af > 60 (>60) 10/22/19 05:04 Glucose 78 mg/dL (75-110) 10/22/19 05:04 Calcium 8.0 mg/dL (8.4-10.2) L 10/22/19 05:04 Total Bilirubin 0.5 mg/dL (0.2-1.3) 10/20/19 20:55 Direct Bilirubin 0.5 mg/dL (0.0-0.4) H 10/20/19 20:55 Neonat Total Bilirubin Not Reportable 10/20/19 20:55 Neonat Direct Bilirubin Not Reportable 10/20/19 20:55 Neonat Indirect Bili Not Reportable 10/20/19 20:55 AST 35 U/L (14-36) 10/20/19 20:55 ALT 16 U/L (<35) 10/20/19 20:55 Alkaline Phosphatase 179 U/L (38-126) H 10/20/19 20:55 Total Protein 6.2 g/dL (6.3-8.2) L 10/20/19 20:55 Albumin 2.6 g/dL (3.5-5.0) L 10/20/19 20:55 TSH 1.64 uIU/mL (0.47-4.68) 10/22/19 05:04 POC Stool Occult Blood POSITIVE (NEGATIVE) 10/21/19 01:55 Blood Type O POSITIVE 10/20/19 20:55 Antibody Screen POSITIVE 10/20/19 20:55 Antibody Identification Anti-E Anti-Jkb 10/20/19 20:55 Antibody Identification Anti-E Anti-Jkb 10/20/19 20:55 Antigen Identification E Antigen - NEGATIVE Jkb Antigen - NEGATIVE 10/20/19 20:55 Antigen Identification E Antigen - NEGATIVE Jkb Antigen - NEGATIVE 10/20/19 20:55 Crossmatch See Detail 10/20/19 20:55 Impressions: Chest X-Ray 10/21/19 01:51 IMPRESSION: Mild progressive crowding at the bases copyright 2011 [employer]- All Rights Reserved Plan Time Spent: Less than 30 Minutes Stroke Is this a Stroke Patient?: No Acute Heart Failure - Is this a Heart Failure Patient?: No
[2019-10-22] MEDS: BUSPIRONE HCL 10 MG TABLET PO SCH (09:46)
--- NOTE | 2019-10-22 12:26 | PDOC CONSULTATION ---
Consultation Consult Date: 10/22/19 Attending physician:: ROMEO TONY Provider Consulted: BRYN TITUS Consult reason:: Patient with known history of recurrent anemia History of Present Illness Admission Date/PCP: 10/21/19 13:32 ABBEY ARRIOLA MD Patient complains of: Anemia weakness History of Present Illness: CEFERINO MOSELEY is a 74 year old female with known history of recurrent anemia, has some element of anemia of chronic disease as well as recurrent iron deficiency anemia and has received iron infusions through our office. Comes in again with hemoglobin in the 6 range. Recently had orthopedic surgery. Was in [facility] for rehabilitation, but was dizzy and weak and ultimately was brought in and given transfusion of 2 units of packed red blood cell. Upon admission patient did have iron studies done which showed a ferritin of 100 and saturation of 9%. She is doing better now, hemoglobin is improved to the 10 range and stable. Patient is ready to discharge back to [facility] soon. Past Medical History Cardiac Medical History: Denies: Congestive Heart Failure, Coronary Artery Disease, Myocardial Infarction Pulmonary Medical History: Reports: Chronic Obstructive Pulmonary Disease (COPD), Pneumonia Psychiatric Medical History: Reports: General Anxiety Disorder Hematology: Reports: Anemia Past Surgical History Past Surgical History: Reports: Orthopedic Surgery Social History Information Source: Patient Lives with: [facility] - acute rehab Smoking Status: Former Smoker Electronic Cigarette use?: No Frequency of Alcohol Use: None Hx Recreational Drug Use: No - Advance Directive Resuscitation Status: Do Not Resuscitate Family History Family History: Other - Denies hx of anemia in the family Parental Family History Reviewed: Yes Children Family History Reviewed: Yes Sibling(s) Family History Reviewed.: Yes Medication/Allergy Home Medications: Albuterol Sulfate [Albuterol Sulfate Hfa] 2 puff IH Q4HP PRN 10/22/19 Apixaban [Eliquis 2.5 mg Tablet] 2.5 mg PO Q12 10/22/19 Buspirone HCl [Buspar 10 mg Tablet] 10 mg PO Q12 30 Days #0 tablet 10/22/19 Ferrous Sulfate [Feosol 325 mg Tablet] 325 mg PO BID 10/22/19 Fluticasone/Salmeterol [Advair 250-50 Diskus 14 Dose/Diskus] 1 puff IH BID 10/22/19 Hydroxyzine Pamoate [Vistaril 25 mg Capsule] 50 mg PO Q8 10/22/19 Ipratropium/Albuterol Sulfate [Duoneb 3 ml Ampul] 3 ml NEB [id number] PRN 10/22/19 Allergies/Adverse Reactions: No Known Allergies Allergy (Verified 10/09/18 13:16) Review of Systems Constitutional: ABSENT: chills, fever(s), headache(s), weight gain, weight loss Eyes: ABSENT: visual disturbances Ears: ABSENT: hearing changes Cardiovascular: ABSENT: chest pain, dyspnea on exertion, edema, orthropnea, palpitations Respiratory: ABSENT: cough, hemoptysis Gastrointestinal: ABSENT: abdominal pain, constipation, diarrhea, hematemesis, hematochezia, nausea, vomiting Genitourinary: ABSENT: dysuria, hematuria Musculoskeletal: ABSENT: joint swelling Integumentary: ABSENT: rash, wounds Neurological: ABSENT: abnormal gait, abnormal speech, confusion, dizziness, focal weakness, syncope Psychiatric: ABSENT: anxiety, depression, homidical ideation, suicidal ideation Endocrine: ABSENT: cold intolerance, heat intolerance, polydipsia, polyuria Hematologic/Lymphatic: ABSENT: easy bleeding, easy bruising Physical Exam Vital Signs: Temp Pulse Resp BP Pulse Ox 97.4 F 96 21 H 127/47 H 92 10/22/19 08:00 10/22/19 08:00 10/22/19 08:00 10/22/19 08:00 10/22/19 08:00 Intake & Output 10/21/19 10/22/19 10/23/19 06:59 06:59 06:59 Intake Total 300 3300 Balance 300 3300 Weight 63.957 kg 59 kg General appearance: PRESENT: no acute distress, well-developed, well-nourished Head exam: PRESENT: atraumatic, normocephalic Eye exam: PRESENT: conjunctiva pink, EOMI, PERRLA. ABSENT: scleral icterus Ear exam: PRESENT: normal external ear exam Mouth exam: PRESENT: moist, tongue midline Neck exam: ABSENT: carotid bruit, JVD, lymphadenopathy, thyromegaly Respiratory exam: PRESENT: clear to auscultation kiana. ABSENT: rales, rhonchi, wheezes Cardiovascular exam: PRESENT: RRR. ABSENT: diastolic murmur, rubs, systolic murmur Pulses: PRESENT: normal dorsalis pedis pul Vascular exam: PRESENT: normal capillary refill GI/Abdominal exam: PRESENT: normal bowel sounds, soft. ABSENT: distended, gu arding, mass, organolmegaly, rebound, tenderness Rectal exam: PRESENT: deferred Extremities exam: PRESENT: full ROM. ABSENT: calf tenderness, clubbing, pedal edema Neurological exam: PRESENT: alert, awake, oriented to person, oriented to place, oriented to time, oriented to situation, CN II-XII grossly intact. ABSENT: mot or sensory deficit Psychiatric exam: PRESENT: appropriate affect, normal mood. ABSENT: homicidal ideation, suicidal ideation Skin exam: PRESENT: dry, intact, warm. ABSENT: cyanosis, rash Results Laboratory Results: 10/22/19 05:04 10/22/19 05:04 10/22/19 10/22/19 10/22/19 05:04 05:04 05:04 WBC 9.5 RBC 3.48 L Hgb 10.5 L Hct 32.1 L MCV 92 MCH 30.2 MCHC 32.8 RDW 24.0 H Plt Count 368 Sodium 141.4 Potassium 4.0 Chloride 110 H Carbon Dioxide 26 Anion Gap 5 BUN 13 Creatinine 0.52 Est GFR ( Amer) > 60 Glucose 78 Calcium 8.0 L TSH 1.64 Impressions: Chest X-Ray 10/21/19 01:51 IMPRESSION: Mild progressive crowding at the bases copyright 2011 [employer] [employer]- All Rights Reserved Assessment & Plan - Diagnosis (1) Anemia Qualifiers: Anemia type: iron deficiency Iron deficiency anemia type: inadequate dietary iron intake Qualified Code(s): D50.8 - Other iron deficiency anemias Is this a current diagnosis for this admission?: Yes Plan: Previously iron deficiency anemia she was still functionally iron deficient because the saturation was only 9%, because of the anemia of chronic disease component. She does have follow-up in our office. We will follow closely as an outpatient. Okay from a hematologic standpoint to discharge back to rehab. - Time Time Spent: Greater than 70 Minutes
[2019-10-22 14:01] VITALS: BP 132/61
== END 2019-10-22 14:45 ==
LOC: ER 20:36 → EH 10-21 13:32 → 4N 10-21 16:51
PROVIDERS: ADMIT Internal Medicine; ATTEND Internal Medicine
DX: D50.8 Other iron deficiency anemias (principal); D63.8 Anemia in other chronic diseases classified elsewhere; I95.9 Hypotension, unspecified; F41.1 Generalized anxiety disorder; R09.02 Hypoxemia; J43.9 Emphysema, unspecified; S82.202D Unspecified fracture of shaft of left tibia, subsequent encounter for closed fracture with routine healing; S82.402D Unspecified fracture of shaft of left fibula, subsequent encounter for closed fracture with routine healing; W19.XXXD Unspecified fall, subsequent encounter; R19.5 Other fecal abnormalities; Z66 Do not resuscitate; Z87.891 Personal history of nicotine dependence; Z79.899 Other long term (current) drug therapy; Z79.01 Long term (current) use of anticoagulants; Z87.01 Personal history of pneumonia (recurrent); Z99.81 Dependence on supplemental oxygen; Z96.698 Presence of other orthopedic joint implants
CPT/HCPCS: 93005; 99285; 86900; 86901; 36415 ×3; 36430; 86870; 86850; 86922; 84443; 85025; 85027; 85610; 87070; 80048; 86920; 71045; 93010; 94640 ×2; G0378 ×3; P9016; A9270 ×5; J3490; J7030; J7120; J7620

== ENCOUNTER 2019-10-25 21:58 | Inpatient (IN) | payer MEDICARE, OTHER ==
[2019-10-25] MEDS ORDERED: IPRATROPIUM/ALBUTEROL 0.5-2.5 MG/3 ML AMPUL NEB ONE ×3 (22:27→22:49)
[2019-10-25] MEDS ORDERED: METHYLPREDNISOLONE INJ 125 MG/2 ML SDV IV ONE (22:49)
--- NOTE | 2019-10-25 22:52 | ER Document Report ---
ED Respiratory Problem - General Chief Complaint: Shortness Of Breath Stated Complaint: SHORTNESS OF BREATH Time Seen by Provider: 10/25/19 22:43 Notes: Patient is a 74-year-old female that comes to the emergency department from [place] where she is undergoing rehab (for a right tib-fib fracture) for chief complaint of shortness of breath and low oxygen saturation. Patient has a history of COPD and is on 2 L nasal cannula normally, she was 83% on 6 L nasal cannula by EMS. As I was evaluating the patient patient had received a first DuoNeb and her oxygen saturation significantly improved. Patient is now stating that she does not feel short of breath, she denies chest pain, fever, vomiting, cough, or any other complaints currently. Patient also has a history of anemia requiring transfusion including transfusion within the past week. TRAVEL OUTSIDE OF THE [place] IN LAST 30 DAYS: No - Related Data Allergies/Adverse Reactions: No Known Allergies Allergy (Verified 10/09/18 13:16) Past Medical History - General Information source: Patient - Social History Smoking Status: Former Smoker Frequency of alcohol use: None Drug Abuse: None Lives with: Family Family History: Other - Denies hx of anemia in the family - Past Medical History Cardiac Medical History: Denies: Hx Congestive Heart Failure, Hx Coronary Artery Disease, Hx Heart Attack Pulmonary Medical History: Reports: Hx COPD, Hx Pneumonia Renal/ Medical History: Reports: Hx Renal Insufficiency. Denies: Hx Peritoneal Dialysis Past Surgical History: Reports: Hx Orthopedic Surgery - Immunizations Immunizations up to date: Yes Hx Diphtheria, Pertussis, Tetanus Vaccination: Yes Review of Systems - Review of Systems Constitutional: No symptoms reported EENT: No symptoms reported Cardiovascular: See HPI Respiratory: See HPI Gastrointestinal: No symptoms reported Genitourinary: No symptoms reported Female Genitourinary: No symptoms reported Musculoskeletal: No symptoms reported Skin: No symptoms reported Hematologic/Lymphatic: No symptoms reported Neurological/Psychological: No symptoms reported Physical Exam - Vital signs Vitals: Pulse Ox 95 10/25/19 22:50 - Notes Notes: GENERAL: Alert, interacts well. Mild respiratory distress HEAD: Normocephalic, atraumatic. EYES: Pupils equal, round, and reactive to light. Extraocular movements intact. ENT: Oral mucosa moist, tongue midline. Oropharynx unremarkable. Airway patent. Nares patent, no nasal septal hematoma, TM's intact. NECK: Full range of motion. Supple. Trachea midline. LUNGS: Mild respiratory distress with very decreased breath sounds and expiratory wheezes throughout. Slightly labored breathing with tachypnea. HEART: Tachycardia with normal rhythm, no murmur ABDOMEN: Soft, non-tender. Non-distended. B EXTREMITIES: Soft tissue swelling over the general lower extremity on the right. Moves all 4 extremities spontaneously. Normal radial and dorsalis pedis pulses bilaterally. No cyanosis. BACK: no cervical, thoracic, lumbar midline tenderness. No saddle anesthesia, normal distal neurovascular exam. Moves all extremities in full range of motion. NEUROLOGICAL: Alert and oriented x3. Normal speech. Cranial nerves II through XII grossly intact. SKIN: Warm, dry, normal turgor. No rashes or lesions noted. Course - Re-evaluation Re-evalutation: 10/26/19 00:02 CBC, chemistry unremarkable, troponin nonspecific. No concerning anemia. No leukocytosis. Chest x-ray is nonspecific with either small developing pleural effusions or co nsolidation. BNP 666 but this is not significantly changed from prior. Venous blood gas nonspecific and patient refuses an ABG. Patient is actually much better on evaluation. After her treatment she is now clear with clear lung sounds and no wheezing. However on 3 L nasal cannula she still has an oxygen saturation of 90%, occasionally down to 87%, and she is tachycardic in the 120s. Patient still has tachypnea too. Placing on bipap She is 3 weeks postop right tib-fib repair at [facility]. No history of blood clots. However with her tachycardia, hypoxia, postop evaluation, shortness of breath CTA will be performed to rule out pulmonary embolism. CTA negative for blood clot but does show pleural effusions and questionable mass near the liver. Unsure if this is the cause of the effusions. No overt pneumonia. Patient is doing well on BiPAP on reevaluation. Discussed with family. Patient will require admission. Discussed with Dr. Sanchez. Discussed with Dr. Galeana, patient accepted for admission to the [facility]. - Vital Signs Vital signs: Temp Pulse Resp BP Pulse Ox 97.6 F 16 102/44 L 95 10/26/19 06:07 10/26/19 06:51 10/26/19 04:01 10/26/19 06:51 - Laboratory Result Diagrams: 10/25/19 22:50 10/25/19 22:50 Laboratory results interpreted by me: 10/25/19 10/25/19 10/25/19 22:50 22:50 22:50 RBC 3.55 L Hgb 10.5 L Hct 32.9 L RDW 22.1 H Lymph % (Auto) 9.5 L Seg Neutrophils % 80.1 H VBG HCO3 Sodium 136.6 L Carbon Dioxide 34 H Anion Gap 4 L Calcium 8.2 L TIBC Alkaline Phosphatase 150 H NT-Pro-B Natriuret Pep 666 H Total Protein 5.7 L Albumin 2.6 L Vitamin B12 10/25/19 10/25/19 22:50 23:11 RBC Hgb Hct RDW Lymph % (Auto) Seg Neutrophils % VBG HCO3 33.1 H Sodium Carbon Dioxide Anion Gap Calcium TIBC 207 L Alkaline Phosphatase NT-Pro-B Natriuret Pep Total Protein Albumin Vitamin B12 952.0 H Discharge - Discharge Clinical Impression: Hypoxia, COPD exacerbation, Pleural effusion, Shortness of breath Condition: Stable Disposition: ADMITTED INPATIENT Admitting Provider: Kervin (Hospitalist) Unit Admitted: [facility]
[2019-10-25 23:04] LABS: ABSOLUTE EOSINOPHILS # (AUTO) 0.1 10^3/uL (0.0-0.6); ABSOLUTE LYMPHOCYTES (AUTO) 0.8 10^3/uL (0.5-4.7); ABSOLUTE MONOCYTES (AUTO) 0.7 10^3/uL (0.1-1.4); ABSOLUTE NEUT (AUTO) 6.5 10^3/uL (1.7-8.2); BASOPHILS % (AUTO) 0.6 % (0-2); EOSINOPHILS % (AUTO) 1.1 % (0-6); HEMATOCRIT 32.9 % (36.0-47.0); HEMOGLOBIN 10.5 g/dL (12.0-15.5); LYMPHOCYTES % (AUTO) 9.5 % (13-45); MEAN CORPUSCULAR HEMOGLOBIN 29.7 pg (27.0-33.4); MEAN CORPUSCULAR VOLUME 93 fl (80-97); MONOCYTES % (AUTO) 8.7 % (3-13); PLATELET COUNT 338 10^3/uL (150-450); RED BLOOD COUNT 3.55 10^6/uL (3.72-5.28); RED CELL DISTRIBUTION WIDTH 22.1 % (11.5-14.0); SEGMENTED NEUTROPHILS % (AUTO) 80.1 % (42-78); TOTAL CELLS COUNTED % (AUTO) 100 %; WHITE BLOOD COUNT 8.2 10^3/uL (4.0-10.5)
[2019-10-25 23:17] LABS: ALBUMIN 2.6 g/dL (3.5-5.0); ALKALINE PHOSPHATASE 150 U/L (38-126); ASPARTATE AMINO TRANSFERASE 30 U/L (14-36); BILIRUBIN,DIRECT 0.1 mg/dL (0.0-0.4); BILIRUBIN,TOTAL 0.6 mg/dL (0.2-1.3); BLOOD UREA NITROGEN 13 mg/dL (7-20); CALCIUM 8.2 mg/dL (8.4-10.2); CARBON DIOXIDE 34 mmol/L (22-30); CHLORIDE 99 mmol/L (98-107); GLUCOSE 98 mg/dL (75-110); POTASSIUM 4.1 mmol/L (3.6-5.0); TOTAL PROTEIN 5.7 g/dL (6.3-8.2)
--- NOTE | 2019-10-25 23:17 | RADIOLOGY REPORT (SQ) ---
EXAM DESCRIPTION: XR CHEST 1 VIEW COMPLETED DATE/TME: 10/25/2019 22:49 CLINICAL HISTORY: hypoxia, shortness of breath COMPARISON: 10/21/2019 FINDINGS: Single frontal view of the chest. Cardiomediastinal silhouette: Atherosclerotic calcification aortic arch. Cardiomegaly. Lungs: Small bilateral pleural effusions with bibasilar opacities. No pneumothorax. Bones: Degenerative change of the spine. Upper abdomen: No abnormality identified. IMPRESSION: 1. Interval development of small bilateral pleural effusions with likely underlying consolidation or atelectasis.
[2019-10-25 23:21] LABS: VENOUS BLOOD BASE EXCESS 6.4 mmol/L; VENOUS BLOOD HCO3 33.1 mmol/L (20-32); VENOUS BLOOD PCO2 59.3 mmHg (35-63); VENOUS BLOOD PH 7.37 (7.30-7.42)
[2019-10-25 23:28] LABS: NT PRO BNP 666 pg/mL (<450)
[2019-10-25 23:32] LABS: ANION GAP 4 (5-19)
[2019-10-25 23:33] LABS: TROPONIN I < 0.012 ng/mL
--- NOTE | 2019-10-26 01:05 | RADIOLOGY REPORT (SQ) ---
EXAM DESCRIPTION: CT angiogram of the chest with contrast CLINICAL HISTORY: 74 years Female; tachycardia, hypoxia, post op R KNEE SURGERY. CREAT 0.60 TECHNIQUE: CT angiogram of the chest using intravenous contrast.. MIP reconstructions were performed. All CT scans at this facility use dose modulation, iterative reconstruction, and/or weight based dosing when appropriate to reduce radiation dose to as low as reasonably achievable. COMPARISON: None. FINDINGS: Chest: Vascular: There is excellent contrast opacification of the central pulmonary arteries. Motion artifact is noted in the lower aspects of the chest. No definitive pulmonary embolism is seen. Thoracic aorta has scattered vascular calcifications. No aneurysm or dissection. Lungs: Bilateral pleural effusions are noted right greater than left and there is bilateral lower lobe volume loss and opacification as well as dependent density seen along the fissure. Lucency is identified in the lung parenchyma in the upper lobes consistent with emphysema. Mediastinum: Heart size is within normal limits. There is pericardial effusion or thickening. Nonspecific, small mediastinal lymph nodes are present. Small hilar lymph nodes are noted. Thyroid gland is heterogeneous. Bones and soft tissues: Chronic compression fracture at T4 involving the superior endplate is noted. There is no focal kyphosis. There is subtle sclerosis of the pedicle at this level as well. Upper Abdomen: Fatty infiltration of the visualized portion of the liver is seen and there may be an ill-defined low density mass in the posterior aspect of the right liver lobe. This is incompletely identified. Small sliding hiatal hernia. IMPRESSION: 1. No obvious pulmonary embolism. 2. Emphysema in the lung bases. Opacification and volume loss posteriorly. Probable changes of increased intravascular volume. 3. Bilateral pleural effusions right greater than left. 4. Pericardial effusion or thickening. 5. Fatty infiltration of the liver. Possible mass in the posterior aspect of the right liver lobe.
[2019-10-26] MEDS ORDERED: DILTIAZEM HCL INJ 25 MG/5 ML VIAL ONE ×2 (01:35→01:36)
[2019-10-26] MEDS ORDERED: DILTIAZEM HCL INJ 25 MG/5 ML VIAL IV ONE (01:38)
[2019-10-26] MEDS ORDERED: MAG HYDROX/AL HYDROX/SIMETH SUSP 30 ML UDCUP PO PRN (01:49)
[2019-10-26] MEDS ORDERED: MAGNESIUM HYDROXIDE SUSP 30 ML UDCUP PO PRN (01:49)
[2019-10-26] MEDS ORDERED: ACETAMINOPHEN 325 MG TABLET PO PRN (01:49)
[2019-10-26 02:11] LABS: RETICULOCYTE COUNT (AUTO) 1.41 % (0.66-2.85)
[2019-10-26] MEDS ORDERED: DOXYCYCLINE HYCLATE INJ 100 MG VIAL IV PRN (02:32)
[2019-10-26] MEDS ORDERED: DOXYCYCLINE HYCLATE 100 MG in DEXTROSE 5%-WATER 250 ML IV ONE (02:45)
[2019-10-26] MEDS: LEVALBUTEROL HCL NEB 1.25 MG/3 ML AMPUL NEB SCH ×4 (02:46→20:54)
[2019-10-26] MEDS ORDERED: DILTIAZEM HCL 30 MG TABLET PO ONE (04:00)
[2019-10-26 05:20] LABS: FOLATE > 20.00 ng/mL (>2.76)
[2019-10-26] MEDS ORDERED: HEPARIN SOD (PORCINE) 5,000 UNIT/ML 1 ML VIAL ONE (05:32)
--- NOTE | 2019-10-26 06:02 | PDOC H&P ---
History of Present Illness Admission Date/PCP: 10/26/19 01:28 ABBEY ARRIOLA MD Patient complains of: Shortness of breath History of Present Illness: CEFERINO MOSELEY is a 74 year old female with a past medical history of COPD, chronic bronchitis, chronic anemia, anxiety, hypoalbuminemia, liver mass declining follow-up. She [facility] of a recent tib-fib fracture 7 days ago. She denies fever chills nausea vomiting. In the emergency room she is found to be tachycardic in the 120s CTA is negative for pulmonary emboli but significantly positive for moderate bilateral pulmonary effusions and emphysema. She receives treatment of albuterol, Atrovent, Solu- Medrol and referred to the hospitalist for admission. During evaluation she has multiple PVCs with tachycardia and IV Cardizem bolus is initiated with p.o. Cardizem scheduled. She denies recent change in cardiac occasions and denies pain nausea or vomiting. Past Medical History Cardiac Medical History: Denies: Congestive Heart Failure, Coronary Artery Disease, Myocardial Infarction Pulmonary Medical History: Reports: Bronchitis, Chronic Obstructive Pulmonary Disease (COPD), Pneumonia Hematology: Reports: Anemia Past Surgical History Past Surgical History: Reports: Orthopedic Surgery Social History Information Source: Patient Lives with: [facility] Smoking Status: Former Smoker Electronic Cigarette use?: No Number of Years Smokin Frequency of Alcohol Use: None Hx Recreational Drug Use: No Drugs: None - Advance Directive Resuscitation Status: Full Code Family History Family History: Hypertension, Other - Denies hx of anemia in the family Parental Family History Reviewed: Yes Children Family History Reviewed: Yes Sibling(s) Family History Reviewed.: Yes Medication/Allergy Home Medications: Albuterol Sulfate [Albuterol Sulfate Hfa] 2 puff IH Q4HP PRN 10/22/19 Apixaban [Eliquis 2.5 mg Tablet] 2.5 mg PO Q12 10/22/19 Buspirone HCl [Buspar 10 mg Tablet] 10 mg PO Q12 30 Days #0 tablet 10/22/19 Ferrous Sulfate [Feosol 325 mg Tablet] 325 mg PO BID 10/22/19 Fluticasone/Salmeterol [Advair 250-50 Diskus 14 Dose/Diskus] 1 puff IH BID 10/22/19 Hydroxyzine Pamoate [Vistaril 25 mg Capsule] 50 mg PO Q8 10/22/19 Ipratropium/Albuterol Sulfate [Duoneb 3 ml Ampul] 3 ml NEB [id number] PRN 10/22/19 Allergies/Adverse Reactions: No Known Allergies Allergy (Verified 10/09/18 13:16) Review of Systems Constitutional: ABSENT: chills, fever(s), headache(s), weight gain, weight loss Eyes: ABSENT: visual disturbances Ears: ABSENT: hearing changes Cardiovascular: ABSENT: chest pain, dyspnea on exertion, edema, orthropnea, palpitations Respiratory: PRESENT: as per HPI, dyspnea. ABSENT: cough, hemoptysis, sputum Gastrointestinal: ABSENT: abdominal pain, constipation, diarrhea, hematemesis, hematochezia, nausea, vomiting Genitourinary: ABSENT: dysuria, hematuria Musculoskeletal: ABSENT: joint swelling Integumentary: ABSENT: rash, wounds Neurological: ABSENT: abnormal gait, abnormal speech, confusion, dizziness, focal weakness, syncope Psychiatric: ABSENT: anxiety, depression, homidical ideation, suicidal ideation Endocrine: ABSENT: cold intolerance, heat intolerance, polydipsia, polyuria Hematologic/Lymphatic: ABSENT: easy bleeding, easy bruising Physical Exam Vital Signs: Temp Pulse Resp BP Pulse Ox 98.4 F 29 H 102/44 L 93 10/26/19 01:00 10/26/19 04:01 10/26/19 04:01 10/26/19 04:01 Intake & Output 10/24/19 10/25/19 10/26/19 11:59 11:59 11:59 Weight 57.9 kg General appearance: PRESENT: cooperative, mild distress, well-developed. ABSENT: hard of hearing Head exam: PRESENT: atraumatic, normocephalic Eye exam: PRESENT: conjunctiva pink, EOMI, PERRLA. ABSENT: scleral icterus Ear exam: PRESENT: normal external ear exam Mouth exam: PRESENT: dry mucosa, tongue midline Neck exam: ABSENT: carotid bruit, JVD, lymphadenopathy, thyromegaly Respiratory exam: PRESENT: accessory muscle use, crackles, decreased breath sounds, prolonged expiratory phas, retraction, symmetrical, tachypnea. ABSENT: rhonchi Cardiovascular exam: PRESENT: tachycardia. ABSENT: diastolic murmur, rubs, systolic murmur Pulses: PRESENT: normal dorsalis pedis pul Vascular exam: PRESENT: normal capillary refill GI/Abdominal exam: PRESENT: normal bowel sounds, soft. ABSENT: distended, guarding, mass, organolmegaly, rebound, tenderness Rectal exam: PRESENT: deferred Extremities exam: PRESENT: full ROM. ABSENT: calf tenderness, clubbing, pedal edema Neurological exam: PRESENT: alert, awake, oriented to person, oriented to place, oriented to time, oriented to situation, CN II-XII grossly intact. ABSENT: motor sensory deficit Psychiatric exam: PRESENT: appropriate affect, normal mood. ABSENT: homicidal ideation, suicidal ideation Skin exam: PRESENT: dry, intact, warm. ABSENT: cyanosis, rash Results Laboratory Results: 10/25/19 22:50 10/25/19 22:50 10/25/19 10/25/19 10/25/19 22:50 22:50 22:50 WBC 8.2 RBC 3.55 L Hgb 10.5 L Hct 32.9 L MCV 93 MCH 29.7 MCHC 32.0 RDW 22.1 H Plt Count 338 Seg Neutrophils % 80.1 H Retic Count (auto) 1.41 VBG pH VBG pCO2 VBG HCO3 VBG Base Excess Sodium 136.6 L Potassium 4.1 Chloride 99 Carbon Dioxide 34 H Anion Gap 4 L BUN 13 Creatinine 0.60 Est GFR ( Amer) > 60 Glucose 98 Calcium 8.2 L Iron TIBC % Saturation Ferritin Total Bilirubin 0.6 AST 30 Alkaline Phosphatase 150 H Total Protein 5.7 L Albumin 2.6 L Vitamin B12 Folate 10/25/19 10/25/19 22:50 23:11 WBC RBC Hgb Hct MCV MCH MCHC RDW Plt Count Seg Neutrophils % Retic Count (auto) VBG pH 7.37 VBG pCO2 59.3 VBG HCO3 33.1 H VBG Base Excess 6.4 Sodium Potassium Chloride Carbon Dioxide Anion Gap BUN Creatinine Est GFR ( Amer) Glucose Calcium Iron 39.0 TIBC 207 L % Saturation 19 Ferritin 241.00 Total Bilirubin AST Alkaline Phosphatase Total Protein Albumin Vitamin B12 952.0 H Folate > 20.00 10/25/19 22:50 Troponin I < 0.012 NT-Pro-B Natriuret Pep 666 H Impressions: Chest X-Ray 10/25/19 22:49 IMPRESSION: 1. Interval development of small bilateral pleural effusions with likely underlying consolidation or atelectasis. Chest/Abdomen CTA 10/26/19 00:02 IMPRESSION: 1. No obvious pulmonary embolism. 2. Emphysema in the lung bases. Opacification and volume loss posteriorly. Probable changes of increased intravascular volume. 3. Bilateral pleural effusions right greater than left. 4. Pericardial effusion or thickening. 5. Fatty infiltration of the liver. Possible mass in the posterior aspect of the right liver lobe. Assessment and Plan - Diagnosis (1) Shortness of breath Is this a current diagnosis for this admission?: Yes Plan: Multifactorial shortness of breath with acute bronchitis, moderate bilateral pleural effusions, anemia, tachycardia and COPD exacerbation. Supplemental oxygen in addition to below (2) Tachycardia Is this a current diagnosis for this admission?: Yes Plan: High risk of developing A. fib given advanced lung disease, avoid albuterol for Xopenex and Cardizem scheduled (3) Acute bronchitis Is this a current diagnosis for this admission?: Yes Plan: Empiric antibiotic, prednisone, flutter valve and Flonase (4) COPD exacerbation Is this a current diagnosis for this admission?: Yes Plan: Trial of BiPAP, supplemental oxygen, incentive spirometry, prednisone (5) Pleural effusion Is this a current diagnosis for this admission?: Yes Plan: Complicated by low oncotic pressure from liver mass and malnutrition. Patient declines work-up of hepatic mass. Follow-up prealbumin (6) Anemia Qualifiers: Anemia type: iron deficiency Iron deficiency anemia type: inadequate dietary iron intake Qualified Code(s): D50.8 - Other iron deficiency anemias Is this a current diagnosis for this admission?: Yes Plan: Improved from baseline, follow-up outpatient hematology and anemia studies - Time Time Spent with patient: 25-34 minutes - Inpatient Certification Medical Necessity: Need Close Monitoring Due to Risk of Patient Decompensation
[2019-10-26] MEDS: DOCUSATE SODIUM 100 MG CAPSULE PO SCH ×2 (09:59→17:57)
[2019-10-26] MEDS: DILTIAZEM HCL 120 MG CAP.SR.24H PO SCH ×2 (09:59→21:56)
[2019-10-26] MEDS: DOXYCYCLINE HYCLATE 100 MG in DEXTROSE 5%-WATER 250 ML IV SCH ×2 (10:05→21:57)
--- NOTE | 2019-10-26 11:37 | PDOC PROGRESS REPORT ---
Subjective Progress Note for:: 10/26/19 Subjective:: The patient is still in the emergency department. She is very somnolent. Her states that she was up for much of the night. She is currently resting on BiPAP. She will answer questions and then immediately fade off back to sleep. She is not tachypneic or struggling to breathe while on BiPAP. Reason For Visit: TACHYCARDIA BRACHITIS,COPD EXACERBATION PLEURAL Physical Exam Vital Signs: Temp Pulse Resp BP Pulse Ox 97.6 F 85 29 H 102/44 L 97 10/26/19 06:07 10/26/19 07:36 10/26/19 07:36 10/26/19 04:01 10/26/19 07:36 Intake & Output 10/25/19 10/26/19 10/27/19 06:59 06:59 06:59 Intake Total 250 Balance 250 Weight 57.9 kg General appearance: PRESENT: no acute distress, well-developed Head exam: PRESENT: atraumatic, normocephalic, other - Temporal wasting and sunken eye sockets Ear exam: PRESENT: normal external ear exam. ABSENT: bleeding, drainage Mouth exam: PRESENT: other - BiPAP mask in place Respiratory exam: PRESENT: decreased breath sounds - Both bases, rales - Bilaterally, tachypnea. ABSENT: wheezes Cardiovascular exam: PRESENT: RRR, +S1, +S2, tachycardia GI/Abdominal exam: PRESENT: diminished bowel sounds, soft. ABSENT: distended, tenderness Rectal exam: PRESENT: deferred Extremities exam: PRESENT: pedal edema Neurological exam: ABSENT: awake - Will awaken to verbal stimulus but immediately falls back to sleep Focused psych exam: PRESENT: other - Somnolent/lethargic Results Laboratory Results: 10/25/19 22:50 10/25/19 22:50 10/25/19 10/25/19 10/25/19 22:50 22:50 22:50 WBC 8.2 RBC 3.55 L Hgb 10.5 L Hct 32.9 L MCV 93 MCH 29.7 MCHC 32.0 RDW 22.1 H Plt Count 338 Seg Neutrophils % 80.1 H Retic Count (auto) 1.41 VBG pH VBG pCO2 VBG HCO3 VBG Base Excess Sodium 136.6 L Potassium 4.1 Chloride 99 Carbon Dioxide 34 H Anion Gap 4 L BUN 13 Creatinine 0.60 Est GFR ( Amer) > 60 Glucose 98 Calcium 8.2 L Iron TIBC % Saturation Ferritin Total Bilirubin 0.6 AST 30 Alkaline Phosphatase 150 H Total Protein 5.7 L Albumin 2.6 L Prealbumin Vitamin B12 Folate 10/25/19 10/25/19 10/26/19 22:50 23:11 09:52 WBC RBC Hgb Hct MCV MCH MCHC RDW Plt Count Seg Neutrophils % Retic Count (auto) VBG pH 7.37 VBG pCO2 59.3 VBG HCO3 33.1 H VBG Base Excess 6.4 Sodium Potassium Chloride Carbon Dioxide Anion Gap BUN Creatinine Est GFR ( Amer) Glucose Calcium Iron 39.0 TIBC 207 L % Saturation 19 Ferritin 241.00 Total Bilirubin AST Alkaline Phosphatase Total Protein Albumin Prealbumin 7.3 L Vitamin B12 952.0 H Folate > 20.00 10/25/19 22:50 Troponin I < 0.012 NT-Pro-B Natriuret Pep 666 H Impressions: Chest X-Ray 10/25/19 22:49 IMPRESSION: 1. Interval development of small bilateral pleural effusions with likely underlying consolidation or atelectasis. Chest/Abdomen CTA 10/26/19 00:02 IMPRESSION: 1. No obvious pulmonary embolism. 2. Emphysema in the lung bases. Opacification and volume loss posteriorly. Probable changes of increased intravascular volume. 3. Bilateral pleural effusions right greater than left. 4. Pericardial effusion or thickening. 5. Fatty infiltration of the liver. Possible mass in the posterior aspect of the right liver lobe. Assessment and Plan - Diagnosis (1) Acute on chronic respiratory failure with hypoxemia Is this a current diagnosis for this admission?: Yes Plan: Patient with a history of COPD presents with acute on chronic respiratory failure with hypoxia. Respiratory failure is also affected by her bilateral pleural effusions. She will receive nebulizer treatments as well as systemic steroids. Incentive spirometry/flutter valve ordered. The patient seems to be tolerating BiPAP. I believe the somnolence is more related to very limited sleep last night rather than hypercarbia. (2) Pleural effusion Is this a current diagnosis for this admission?: Yes Plan: As I discussed with the , the etiology of the bilateral pleural effusions is hard to know. She has multiple etiologies including her history of heart failure and her hypoalbuminemia. I discussed the case with radiology. Unfortunately she has been on Xarelto and we will need to wait until tomorrow to perform a thoracentesis. With the volume in the chest cavity I believe she would benefit from a pigtail catheter remaining in place. She will remain on BiPAP as tolerated but I believe when she is able to undergo pleurocentesis she will feel better. I have asked that the right side be tapped first. Once that is performed then consideration of the left side will be next. I have ordered s tudies on the fluid so as to ascertain the etiology. (3) Tachycardia Is this a current diagnosis for this admission?: Yes Plan: The patient was placed on diltiazem. She still has borderline tachycardia. Her pressures are somewhat soft but systolic remains above 100. We will continue current regimen. She has been on furosemide at 40 mg. I will resume furosemide but at a lower dose. (4) Acute bronchitis Qualifiers: Bronchitis organism: unspecified organism Qualified Code(s): J20.9 - Acute bronchitis, unspecified Is this a current diagnosis for this admission?: Yes Plan: The patient was placed on doxycycline for a bronchitis associated with her COPD. (5) COPD exacerbation Is this a current diagnosis for this admission?: Yes Plan: As noted above she will be on doxycycline as well as prednisone and nebulizer regimen. (6) Congestive heart failure Qualifiers: Heart failure chronicity: unspecified Is this a current diagnosis for this admission?: Yes Plan: The records indicate a history of heart failure. There was no further specification. I have ordered an echocardiogram to evaluate this as this could be a significant factor contributing to her current state. I will try and add back some furosemide. She may need wholesale changes in her medication based on the echocardiogram results. (7) Anemia Qualifiers: Anemia type: iron deficiency Iron deficiency anemia type: inadequate dietary iron intake Qualified Code(s): D50.8 - Other iron deficiency anemias Is this a current diagnosis for this admission?: Yes Plan: Hemoglobin is 10.5. Will monitor. Iron deficiency is the most likely cause. Will evaluate after rectal issues are addressed. (8) Steatohepatitis Is this a current diagnosis for this admission?: Yes Plan: Steatohepatitis was noted on CT scan. The patient is not on any lipid medications. Consider adding statin therapy and or Zetia. With her history of myocardial infarction she might benefit from these medications as well. (9) Abnormal CT of liver Is this a current diagnosis for this admission?: Yes Plan: The CT scan did report the possibility of a liver mass. After stabilization of the patient and wants the more critical acute issues are addressed then consider repeat scanning to assess more fully. (10) History of fracture of leg Is this a current diagnosis for this admission?: Yes Plan: The patient recently had a fracture with surgical repair. She is likely on Xarelto for postoperative DVT prophylaxis as she has been in a half-way facility. Physical therapy has been ordered. The Xarelto is being held current ly in anticipation of pleurocentesis. - Time Total Critical Time (Minutes): 40 Medications reviewed and adjusted accordingly: Yes
[2019-10-26] MEDS: HYDROXYZINE HCL 10 MG TABLET PO SCH ×2 (14:28→14:32)
[2019-10-26] MEDS ORDERED: OXYCODONE HCL IR 5 MG TABLET PO PRN (15:01)
[2019-10-26] MEDS: HEPARIN SOD (PORCINE) 5,000 UNIT/ML 1 ML VIAL SUBCUT SCH ×3 (16:10→21:57)
--- NOTE | 2019-10-26 19:37 | EKG REPORT ---
SEVERITY:- OTHERWISE NORMAL ECG - SINUS TACHYCARDIA : Confirmed by: Leila Larose MD 26-Oct-2019 19:35:42
[2019-10-26] MEDS ORDERED: DOXYCYCLINE HYCLATE INJ 100 MG VIAL ONE (21:49)
[2019-10-26] MEDS: BUSPIRONE HCL 10 MG TABLET PO SCH (21:56)
[2019-10-26] MEDS: GUAIFENESIN 600 MG TABLET.SA PO SCH (21:57)
[2019-10-27] MEDS: LEVALBUTEROL HCL NEB 1.25 MG/3 ML AMPUL NEB SCH ×4 (01:50→20:29)
[2019-10-27] MEDS ORDERED: NORMAL SALINE 1000 ML 1,000 ML IV PRN (03:15)
[2019-10-27] MEDS ORDERED: ALBUMIN HUMAN 50.0 GM/200 ML RTUINJ IV ONE (03:44)
[2019-10-27] MEDS: ALBUMIN HUMAN 12.5 GM/50 ML RTUINJ IV SCH ×4 (03:48→05:50)
[2019-10-27] MEDS: HEPARIN SOD (PORCINE) 5,000 UNIT/ML 1 ML VIAL SUBCUT SCH ×4 (05:50→21:20)
[2019-10-27 06:28] LABS: INTERNATIONAL RATION (INR) 1.31; PROTHROMBIN TIME 16.4 SEC (11.4-15.4)
[2019-10-27 06:29] LABS: PARTIAL THROMBOPLASTIN TIME 33.7 SEC (23.5-35.8)
[2019-10-27 06:32] LABS: ABSOLUTE LYMPHOCYTES (AUTO) 0.6 10^3/uL (0.5-4.7); ABSOLUTE MONOCYTES (AUTO) 0.6 10^3/uL (0.1-1.4); ABSOLUTE NEUT (AUTO) 8.3 10^3/uL (1.7-8.2); BASOPHILS % (AUTO) 0.2 % (0-2); EOSINOPHILS % (AUTO) 0.1 % (0-6); LYMPHOCYTES % (AUTO) 6.2 % (13-45); MEAN CORPUSCULAR HEMOGLOBIN 29.5 pg (27.0-33.4); MEAN CORPUSCULAR HGB CONC 32.1 g/dL (32.0-36.0); MEAN CORPUSCULAR VOLUME 92 fl (80-97); MONOCYTES % (AUTO) 6.4 % (3-13); PLATELET COUNT 281 10^3/uL (150-450); RED BLOOD COUNT 2.72 10^6/uL (3.72-5.28); RED CELL DISTRIBUTION WIDTH 21.4 % (11.5-14.0); SEGMENTED NEUTROPHILS % (AUTO) 87.1 % (42-78); TOTAL CELLS COUNTED % (AUTO) 100 %; WHITE BLOOD COUNT 9.5 10^3/uL (4.0-10.5)
[2019-10-27 06:46] LABS: ANION GAP 7 (5-19); BLOOD UREA NITROGEN 19 mg/dL (7-20); CALCIUM 8.4 mg/dL (8.4-10.2); CARBON DIOXIDE 34 mmol/L (22-30); CHLORIDE 99 mmol/L (98-107); GLUCOSE 100 mg/dL (75-110); POTASSIUM 3.8 mmol/L (3.6-5.0)
[2019-10-27] MEDS: DILTIAZEM HCL 120 MG CAP.SR.24H PO SCH (09:36)
[2019-10-27] MEDS: BUSPIRONE HCL 10 MG TABLET PO SCH ×2 (09:36→21:20)
[2019-10-27] MEDS: DOCUSATE SODIUM 100 MG CAPSULE PO SCH ×2 (09:37→17:03)
[2019-10-27] MEDS: PREDNISONE 20 MG TABLET PO SCH ×2 (09:37→17:07)
[2019-10-27] MEDS: FUROSEMIDE 20 MG TABLET PO SCH ×2 (09:37→17:05)
[2019-10-27] MEDS: GUAIFENESIN 600 MG TABLET.SA PO SCH ×2 (09:38→21:20)
[2019-10-27] MEDS: DOXYCYCLINE HYCLATE 100 MG in DEXTROSE 5%-WATER 250 ML IV SCH (10:23)
[2019-10-27] MEDS ORDERED: DOBUTAMINE HCL/D5W 500 MG/250 ML RTUINJ IV PRN (10:42)
[2019-10-27] MEDS ORDERED: DILTIAZEM HCL 30 MG TABLET PO SCH (16:00)
--- NOTE | 2019-10-27 16:06 | RADIOLOGY REPORT (SQ) ---
EXAM DESCRIPTION: CHEST SINGLE VIEW COMPLETED DATE/TIME: 10/27/2019 3:56 pm REASON FOR STUDY: S/P THORA COMPARISON: 10/25/2019. EXAM PARAMETERS: NUMBER OF VIEWS: One view. TECHNIQUE: Single frontal radiographic view of the chest acquired. RADIATION DOSE: NA LIMITATIONS: None. FINDINGS: LUNGS AND PLEURA: Decrease in the right pleural effusion. No pneumothorax. Chronic inter stitial changes and pleural thickening in the apices. MEDIASTINUM AND HILAR STRUCTURES: No masses. Contour normal. HEART AND VASCULAR STRUCTURES: Heart normal in size. Normal vasculature. BONES: No acute findings. Old rib fracture. HARDWARE: None in the chest. OTHER: No other significant finding. IMPRESSION: NO PNEUMOTHORAX FOLLOWING THORACENTESIS. DECREASE IN THE RIGHT PLEURAL EFFUSION. CHRON IC PLEURAL AND PARENCHYMAL SCARRING. TECHNICAL DOCUMENTATION: JOB ID: [id number] [employer]- All Rights Reserved Reading location - IP/workstation name: [email or web address]
[2019-10-27] MEDS ORDERED: FLUCONAZOLE 100 MG TABLET PO ONE (16:07)
--- NOTE | 2019-10-27 16:19 | RADIOLOGY REPORT (SQ) ---
EXAM DESCRIPTION: U/S THORACENTESIS W/CHEST TUBE COMPLETED DATE/TIME: 10/27/2019 4:00 pm REASON FOR STUDY: bilat pleural effusions. Right tap requested pleas COMPARISON: 10/27/2018 FLUORO TIME: None 1 images saved to PACS. TECHNIQUE: Image guided chest tube placement using sterile technique. LIMITATIONS: None FINDINGS: After written consent was obtained and explaining the risks and benefits the patient was p laced in semi right left lateral decubitus position on patient's bed. An entry site was then marked using ultrasound guidance. The posterior right chest wall was then prepped and draped in a sterile fa shion. The site was then anesthetized using 10 ml of 1% lidocaine solution. An 11 blade scalpel was used to make a small skin incision. A 6 Bhutanese Foww-Q-Vlqvorbx was advanced into the thoracic cavit y. The needle was removed and the catheter aspirated. A total of 400 cc of marcelina colored fluid was drained. Following the procedure the catheter was removed. A sample of fluid was sent to the lab for analysis. The entry site was covered with a sterile bandage . Total procedure time 30 minutes. Documentation face to face time, the performing proceduralist, spent monitoring the patient: 3rdminutes. IMPRESSION: Successful ultrasound guided right-sided thoracentesis as above. COMMENT: Patient medication list reviewed: Yes- Quality ID# [id number]:Eligible professional attests to do cumenting in the medical record they obtained, updated, or reviewed the patient's current medications . Quality ID 145: Final reports for procedures using fluoroscopy that document radiation exposure pb irene, or exposure time and number of fluorographic images (if radiation exposure indices are not avail able) TECHNICAL DOCUMENTATION: JOB ID: [id number] [employer]- All Rights Reserved rev Reading location - IP/workstation name: [email or web address]
--- NOTE | 2019-10-27 16:33 | PDOC PROGRESS REPORT ---
Subjective Progress Note for:: 10/27/19 Subjective:: CEFERINO MOSELEY is a 74 year old female with a past medical history of COPD, chronic bronchitis, chronic anemia, anxiety, hypoalbuminemia, liver mass declining follow-up. She presents from [facility] following rehab of a recent tib-fib fracture 7 days ago. She denies fever chills nausea vomiting. In the emergency room she is found to be tachycardic in the 120s CTA is negative for pulmonary emboli but significantly positive for moderate bilateral pulmonary effusions and emphysema. She receives treatment of albuterol, Atrovent, Solu- Medrol and referred to the hospitalist for admission. During evaluation she has multiple PVCs with tachycardia and IV Cardizem bolus is initiated with p.o. Cardizem scheduled. She denies recent change in cardiac occasions and denies pain nausea or vomiting. 10/27/2019. Patient noted to be hypotensive and tachycardic otherwise no acute events, saw patient this morning, on BiPAP, does not appear to be any acute distress, alert and oriented, scheduled to have thoracentesis for bilateral pleural effusions today. Reason For Visit: TACHYCARDIA BRACHITIS,COPD EXACERBATION PLEURAL Physical Exam Vital Signs: Temp Pulse Resp BP Pulse Ox 97.9 F 120 H 24 H 119/50 L 96 10/27/19 12:02 10/27/19 14:24 10/27/19 15:26 10/27/19 14:00 10/27/19 15:26 Intake & Output 10/26/19 10/27/19 10/28/19 06:59 06:59 06:59 Intake Total 092 734 5004 Output Total 0 Balance 342 927 9023 Weight 57.9 kg 63.2 kg General appearance: PRESENT: no acute distress, well-developed, well-nourished Head exam: PRESENT: atraumatic, normocephalic Respiratory exam: PRESENT: crackles, decreased breath sounds. ABSENT: rales, rhonchi, wheezes Cardiovascular exam: PRESENT: irregular rhythm, tachycardia. ABSENT: diastolic murmur, rubs, systolic murmur GI/Abdominal exam: PRESENT: normal bowel sounds, soft. ABSENT: distended, guarding, mass, organolmegaly, rebound, tenderness Neurological exam: PRESENT: alert, awake, oriented to person, oriented to place, CN II-XII grossly intact. ABSENT: motor sensory deficit Results Laboratory Results: 10/27/19 05:59 10/27/19 05:59 10/27/19 10/27/19 05:59 05:59 WBC 9.5 RBC 2.72 L Hgb 8.0 L D Hct 25.0 L MCV 92 MCH 29.5 MCHC 32.1 RDW 21.4 H Plt Count 281 Seg Neutrophils % 87.1 H Sodium 140.4 Potassium 3.8 Chloride 99 Carbon Dioxide 34 H Anion Gap 7 BUN 19 Creatinine 0.47 L Est GFR ( Amer) > 60 Glucose 100 Calcium 8.4 10/25/19 22:50 Troponin I < 0.012 NT-Pro-B Natriuret Pep 666 H Impressions: Chest/Abdomen CTA 10/26/19 00:02 IMPRESSION: 1. No obvious pulmonary embolism. 2. Emphysema in the lung bases. Opacification and volume loss posteriorly. Probable changes of increased intravascular volume. 3. Bilateral pleural effusions right greater than left. 4. Pericardial effusion or thickening. 5. Fatty infiltration of the liver. Possible mass in the posterior aspect of the right liver lobe. Chest X-Ray 10/27/19 00:00 IMPRESSION: NO PNEUMOTHORAX FOLLOWING THORACENTESIS. DECREASE IN THE RIGHT PLEURAL EFFUSION. CHRONIC PLEURAL AND PARENCHYMAL SCARRING. Assessment and Plan - Diagnosis (1) Acute on chronic respiratory failure with hypoxemia Is this a current diagnosis for this admission?: Yes Plan: Multifactorial. Likely due to COPD exacerbation complicated by underlying bilateral pleural effusion/healthcare associated pneumonia and history of CHF. Continue telemetry, BiPAP, supplemental oxygen, duo nebs, LAMA, LABA, ICS, incentive spirometry, flutter valve, pulmonary toileting, thoracentesis, empiric broad-spectrum IV antibiotics. (2) Pleural effusion Is this a current diagnosis for this admission?: Yes Plan: Multifactorial. History of CHF in the setting hypoalbuminemia, cannot rule out malignancy given history of tobacco abuse and possible liver mass in CTA Chest. Status post thoracentesis by radiology. Follow-up pleural fluid analysis, cytology and culture. Plan as per #1. (3) Anemia Qualifiers: Anemia type: iron deficiency Iron deficiency anemia type: inadequate dietary iron intake Qualified Code(s): D50.8 - Other iron deficiency anemias Is this a current diagnosis for this admission?: Yes Plan: Hemoglobin is 10.5. Will monitor. Iron deficiency is the most likely cause. Will evaluate after rectal issues are addressed. (4) Congestive heart failure Qualifiers: Heart failure chronicity: unspecified Is this a current diagnosis for this admission?: Yes Plan: History of CHF. BNP only mildly elevated. Troponin negative. Pending 2D echo. Follow-up 2D echo. Cardiac diet. Beta-blockers. MANJIT. (5) Steatohepatitis Is this a current diagnosis for this admission?: Yes Plan: Steatohepatitis was noted on CT scan. Consider adding statin therapy and or Zetia. (6) Tachycardia Is this a current diagnosis for this admission?: Yes Plan: Sinus tachycardia. proBNP 666 Troponin negative. Denies any anginal symptoms. DC Cardizem. PRN beta-blockers.
[2019-10-27] MEDS ORDERED: METOPROLOL TARTRATE PF/INJ 5 MG/5 ML SDV IV PRN (16:40)
[2019-10-27 16:58] LABS: FLUID TYPE PLEURAL
[2019-10-27] MEDS: CEFEPIME 1 GM/D5W RTU 1 GM/50 ML RTUPB IV SCH (16:58)
[2019-10-27 16:59] LABS: FLUID SOURCE LUNG
[2019-10-27 17:01] LABS: FLUID APPEARANCE CLOUDY; FLUID COLOR ORANGE; FLUID VISCOSITY LIQUID
[2019-10-27] MEDS ORDERED: (PENDING PHARMACY ID) (Fluticasone/Salmeterol 1 PUFF) IH SCH (22:00)
[2019-10-28] MEDS: LEVALBUTEROL HCL NEB 1.25 MG/3 ML AMPUL NEB SCH ×4 (01:57→20:32)
[2019-10-28] MEDS: CEFEPIME 1 GM/D5W RTU 1 GM/50 ML RTUPB IV SCH ×2 (05:09→17:15)
[2019-10-28] MEDS: HEPARIN SOD (PORCINE) 5,000 UNIT/ML 1 ML VIAL SUBCUT SCH ×3 (05:09→21:32)
[2019-10-28 05:49] LABS: HEMATOCRIT 25.7 % (36.0-47.0); HEMOGLOBIN 8.2 g/dL (12.0-15.5); MEAN CORPUSCULAR HEMOGLOBIN 29.6 pg (27.0-33.4); MEAN CORPUSCULAR HGB CONC 31.8 g/dL (32.0-36.0); MEAN CORPUSCULAR VOLUME 93 fl (80-97); PLATELET COUNT 278 10^3/uL (150-450); RED BLOOD COUNT 2.76 10^6/uL (3.72-5.28); RED CELL DISTRIBUTION WIDTH 21.5 % (11.5-14.0); WHITE BLOOD COUNT 7.8 10^3/uL (4.0-10.5)
[2019-10-28 06:15] LABS: BLOOD UREA NITROGEN 20 mg/dL (7-20); CALCIUM 8.5 mg/dL (8.4-10.2); GLUCOSE 114 mg/dL (75-110); POTASSIUM 4.1 mmol/L (3.6-5.0)
[2019-10-28 06:20] LABS: CARBON DIOXIDE 34 mmol/L (22-30); CHLORIDE 103 mmol/L (98-107)
[2019-10-28 06:21] LABS: ANION GAP 4 (5-19)
--- NOTE | 2019-10-28 09:22 | RADIOLOGY REPORT (SQ) ---
EXAM DESCRIPTION: CHEST SINGLE VIEW COMPLETED DATE/TIME: 10/27/2019 6:22 pm REASON FOR STUDY: 2 HR S/P THORA COMPARISON: 10/27/2019 TECHNIQUE: Single frontal radiographic view of the chest acquired. NUMBER OF VIEWS: One view. LIMITATIONS: None. FINDINGS: LUNGS AND PLEURA: No pneumothorax. No consolidation or pleural effusion. MEDIASTINUM AND HILAR STRUCTURES: Stable. HEART AND VASCULAR STRUCTURES: Stable. BONES: No acute findings. HARDWARE: None in the chest. OTHER: No other significant finding. IMPRESSION: NO ACUTE FINDINGS. TECHNICAL DOCUMENTATION: JOB ID: [id number] [place]-[id number] 2010 [employer]- All Rights Reserved Reading location - IP/workstation name: [email or web address]
--- NOTE | 2019-10-28 09:41 | PDOC CONSULTATION ---
Consultation Consult Date: 10/28/19 Attending physician:: RAQUEL MOROCHO Provider Consulted: BRYN TITUS Consult reason:: Anemia History of Present Illness Admission Date/PCP: 10/26/19 01:28 ABBEY ARRIOLA MD Patient complains of: Anemia History of Present Illness: CEFERINO MOSELEY is a 74 year old female with history of other medical issues, who d oes have history of anemia of chronic disease as well as iron deficiency anemia, I saw her chest when she was admitted a few days ago, she was admitted with a drop in hemoglobin to 6, but did have some orthopedic surgery prior to that, she was functionally iron deficient and we gave her blood as well as IV iron. Her hemoglobin improved to 10 and then she discharged. Unfortunately she came back and hemoglobin was down to 8. Of note Hemoccult was positive on previous admission. On this admission there was bilateral pleural effusions and ultimately had thoracentesis, which was bloody to some extent, and she has been weaker. Past Medical History Cardiac Medical History: Denies: Congestive Heart Failure, Coronary Artery Disease, Myocardial Infarction Pulmonary Medical History: Reports: Bronchitis, Chronic Obstructive Pulmonary Disease (COPD), Pneumonia Hematology: Reports: Anemia Past Surgical History Past Surgical History: Reports: Orthopedic Surgery Social History Lives with: Family Smoking Status: Former Smoker Electronic Cigarette use?: No Number of Years Smokin Frequency of Alcohol Use: None Hx Recreational Drug Use: No Drugs: None Hx Prescription Drug Abuse: No - Advance Directive Resuscitation Status: Full Code Family History Family History: Other - Denies hx of anemia in the family Parental Family History Reviewed: Yes Children Family History Reviewed: Yes Sibling(s) Family History Reviewed.: Yes Medication/Allergy Home Medications: Acetaminophen [Tylenol 325 mg Tablet] 650 mg PO Q8HP PRN 10/26/19 Albuterol Sulfate [Proair HFA Inhalation Aerosol 8.5 gm MDI] 2 puff IH Q4HP PRN 10/26/19 Apixaban [Eliquis 2.5 mg Tablet] 2.5 mg PO BID 10/26/19 Ferrous Sulfate [Feosol 325 mg Tablet] 325 mg PO BID 10/26/19 Fluticasone/Salmeterol [Advair 250-50 Diskus 14 Dose/Diskus] 1 puff IH Q12 10/26/19 Furosemide [Lasix 40 mg Tablet] 40 mg PO DAILY 10/26/19 Guaifenesin [Mucinex Sr 600 mg Tablet.sa] 600 mg PO Q12 10/26/19 Hydroxyzine HCl [Atarax 10 mg Tablet] 50 mg PO Q8 10/26/19 Ipratropium/Albuterol Sulfate [Duoneb 3 ml Ampul] 1 vial NEB Q4HP PRN 10/26/19 Multivitamin [Daily Multiple Vitamin] 1 tab PO DAILY 10/26/19 Oxycodone HCl [Oxy-Ir 5 mg Tablet] 5 mg PO Q6HP PRN 10/26/19 Pantoprazole Sodium [Protonix [address] Tablet] 40 mg PO DAILY 10/26/19 Allergies/Adverse Reactions: No Known Allergies Allergy (Verified 10/26/19 08:23) Review of Systems Constitutional: ABSENT: chills, fever(s), headache(s), weight gain, weight loss Eyes: ABSENT: visual disturbances Ears: ABSENT: hearing changes Cardiovascular: ABSENT: chest pain, dyspnea on exertion, edema, orthropnea, palpitations Respiratory: ABSENT: cough, hemoptysis Gastrointestinal: ABSENT: abdominal pain, constipation, diarrhea, hematemesis, hematochezia, nausea, vomiting Genitourinary: ABSENT: dysuria, hematuria Musculoskeletal: ABSENT: joint swelling Integumentary: ABSENT: rash, wounds Neurological: ABSENT: abnormal gait, abnormal speech, confusion, dizziness, focal weakness, syncope Psychiatric: ABSENT: anxiety, depression, homidical ideation, suicidal ideation Endocrine: ABSENT: cold intolerance, heat intolerance, polydipsia, polyuria Hematologic/Lymphatic: ABSENT: easy bleeding, easy bruising Physical Exam Vital Signs: Temp Pulse Resp BP Pulse Ox 97.5 F 100 20 102/39 L 98 10/28/19 07:31 10/28/19 07:31 10/28/19 07:31 10/28/19 07:31 10/28/19 07:31 Intake & Output 10/27/19 10/28/19 10/29/19 06:59 06:59 06:59 Intake Total 863 1531 Output Total 975 Balance 863 556 Weight 63.2 kg 62.8 kg General appearance: PRESENT: no acute distress, well-developed, well-nourished Head exam: PRESENT: atraumatic, normocephalic Eye exam: PRESENT: conjunctiva pink, EOMI, PERRLA. ABSENT: scleral icterus Ear exam: PRESENT: normal external ear exam Mouth exam: PRESENT: moist, tongue midline Neck exam: ABSENT: carotid bruit, JVD, lymphadenopathy, thyromegaly Respiratory exam: PRESENT: clear to auscultation kiana. ABSENT: rales, rhonchi, wheezes Cardiovascular exam: PRESENT: RRR. ABSENT: diastolic murmur, rubs, systolic murmur Pulses: PRESENT: normal dorsalis pedis pul Vascular exam: PRESENT: normal capillary refill GI/Abdominal exam: PRESENT: normal bowel sounds, soft. ABSENT: distended, guarding, mass, organolmegaly, rebound, tenderness Rectal exam: PRESENT: deferred Extremities exam: PRESENT: full ROM. ABSENT: calf tenderness, clubbing, pedal edema Neurological exam: PRESENT: alert, awake, oriented to person, oriented to place, oriented to time, oriented to situation, CN II-XII grossly intact. ABSENT: motor sensory deficit Psychiatric exam: PRESENT: appropriate affect, normal mood. ABSENT: homicidal ideation, suicidal ideation Skin exam: PRESENT: dry, intact, warm. ABSENT: cyanosis, rash Results Laboratory Results: 10/28/19 04:48 10/28/19 04:48 10/27/19 10/28/19 10/28/19 15:20 04:48 04:48 WBC 7.8 RBC 2.76 L Hgb 8.2 L Hct 25.7 L MCV 93 MCH 29.6 MCHC 31.8 L RDW 21.5 H Plt Count 278 Sodium 141.2 Potassium 4.1 Chloride 103 Carbon Dioxide 34 H Anion Gap 4 L BUN 20 Creatinine 0.47 L Est GFR ( Amer) > 60 Glucose 114 H Calcium 8.5 Magnesium 2.1 Fluid Type PLEURAL Fluid Source LUNG Fluid Color ORANGE Fluid Appearance CLOUDY Fluid Viscosity LIQUID Fluid WBC 192 Fluid RBC 5545 10/25/19 22:50 Troponin I < 0.012 NT-Pro-B Natriuret Pep 666 H Impressions: Chest/Abdomen CTA 10/26/19 00:02 IMPRESSION: 1. No obvious pulmonary embolism. 2. Emphysema in the lung bases. Opacification and volume loss posteriorly. Probable changes of increased intravascular volume. 3. Bilateral pleural effusions right greater than left. 4. Pericardial effusion or thickening. 5. Fatty infiltration of the liver. Possible mass in the posterior aspect of the right liver lobe. Thoracentesis Ultrasound 10/27/19 00:00 IMPRESSION: Successful ultrasound guided right-sided thoracentesis as above. Chest X-Ray 10/27/19 18:00 IMPRESSION: NO ACUTE FINDINGS. Assessment & Plan - Diagnosis (1) Anemia Qualifiers: Anemia type: iron deficiency Iron deficiency anemia type: inadequate dietary iron intake Qualified Code(s): D50.8 - Other iron deficiency anemias Is this a current diagnosis for this admission?: Yes Plan: Previous iron deficiency anemia although recent iron studies show that ferritin is over 200 and saturation is now 19%. I feel like that blood drop should be because of some sort of blood loss. Will discuss with primary team to see if GI should be involved. Even a primary bone marrow failure issue should not result in blood drop within just a few days. - Time Time Spent: Greater than 70 Minutes
--- NOTE | 2019-10-28 11:21 | PDOC PROGRESS REPORT ---
Subjective Progress Note for:: 10/28/19 Subjective:: CEFERINO MOSELEY is a 74 year old female with a past medical history of COPD, chronic bronchitis, chronic anemia, anxiety, hypoalbuminemia, liver mass declining follow-up. She presents from [facility] following rehab of a recent tib-fib fracture 7 days ago. She denies fever chills nausea vomiting. In the emergency room she is found to be tachycardic in the 120s CTA is negative for pulmonary emboli but significantly positive for moderate bilateral pulmonary effusions and emphysema. She receives treatment of albuterol, Atrovent, Solu- Medrol and referred to the hospitalist for admission. During evaluation she has multiple PVCs with tachycardia and IV Cardizem bolus is initiated with p.o. Cardizem scheduled. She denies recent change in cardiac occasions and denies pain nausea or vomiting. 10/27/2019. Patient noted to be hypotensive and tachycardic otherwise no acute events, saw patient this morning, on BiPAP, does not appear to be any acute distress, alert and oriented, scheduled to have thoracentesis for bilateral pleural effusions today. 10/28/2019. No acute events overnight. Status post thoracentesis 10/27/2019, patient reporting moderate improvement of her respiratory symptoms. Resting in bed on nasal cannula on 6 L saturating WNL. Does not seem to be in any apparent distress. Denies any fever, chills, nausea, vomiting, diarrhea, constipation or any urinary symptoms. Reason For Visit: TACHYCARDIA BRACHITIS,COPD EXACERBATION PLEURAL Physical Exam Vital Signs: Temp Pulse Resp BP Pulse Ox 97.5 F 109 H 20 102/39 L 97 10/28/19 07:31 10/28/19 08:20 10/28/19 08:20 10/28/19 07:31 10/28/19 08:20 Intake & Output 10/27/19 10/28/19 10/29/19 06:59 06:59 06:59 Intake Total 863 1531 Output Total 975 Balance 863 556 Weight 63.2 kg 62.8 kg General appearance: PRESENT: no acute distress, well-developed, well-nourished Head exam: PRESENT: atraumatic, normocephalic Respiratory exam: PRESENT: crackles - Bibasilar. ABSENT: rales, rhonchi, wheezes Cardiovascular exam: PRESENT: RRR. ABSENT: diastolic murmur, rubs, systolic murmur GI/Abdominal exam: PRESENT: normal bowel sounds, soft. ABSENT: distended, guarding, mass, organolmegaly, rebound, tenderness Neurological exam: PRESENT: alert, awake, oriented to person, oriented to place, oriented to time, oriented to situation, CN II-XII grossly intact. ABSENT: motor sensory deficit Results Laboratory Results: 10/28/19 04:48 10/28/19 04:48 10/27/19 10/28/19 10/28/19 15:20 04:48 04:48 WBC 7.8 RBC 2.76 L Hgb 8.2 L Hct 25.7 L MCV 93 MCH 29.6 MCHC 31.8 L RDW 21.5 H Plt Count 278 Sodium 141.2 Potassium 4.1 Chloride 103 Carbon Dioxide 34 H Anion Gap 4 L BUN 20 Creatinine 0.47 L Est GFR ( Amer) > 60 Glucose 114 H Calcium 8.5 Magnesium 2.1 Fluid Type PLEURAL Fluid Source LUNG Fluid Color ORANGE Fluid Appearance CLOUDY Fluid Viscosity LIQUID Fluid WBC 192 Fluid RBC 5545 10/25/19 22:50 Troponin I < 0.012 NT-Pro-B Natriuret Pep 666 H Impressions: Chest/Abdomen CTA 10/26/19 00:02 IMPRESSION: 1. No obvious pulmonary embolism. 2. Emphysema in the lung bases. Opacification and volume loss posteriorly. Probable changes of increased intravascular volume. 3. Bilateral pleural effusions right greater than left. 4. Pericardial effusion or thickening. 5. Fatty infiltration of the liver. Possible mass in the posterior aspect of the right liver lobe. Thoracentesis Ultrasound 10/27/19 00:00 IMPRESSION: Successful ultrasound guided right-sided thoracentesis as above. Chest X-Ray 10/27/19 18:00 IMPRESSION: NO ACUTE FINDINGS. Assessment and Plan - Diagnosis (1) Acute on chronic respiratory failure with hypoxemia Is this a current diagnosis for this admission?: Yes Plan: Mild improvement. SPO2 WNL on 6 L. Multifactorial. Likely due to COPD exacerbation complicated by underlying bilateral pleural effusion/healthcare associated pneumonia and history of CHF. Continue telemetry, BiPAP, supplemental oxygen, duo nebs, LAMA, LABA, ICS, incentive spirometry, flutter valve, pulmonary toileting, thoracentesis, empiric broad-spectrum IV antibiotics. (2) Pleural effusion Is this a current diagnosis for this admission?: Yes Plan: Multifactorial. History of CHF in the setting hypoalbuminemia, cannot rule out malignancy given history of tobacco abuse and possible liver mass in CTA Chest. Status post thoracentesis by radiology 10/27/2019. Pleural follow-up color orange, WBC 192, RBC 5545. Pending LDH, protein and glucose. Cultures no growth so far. Plan as per #1. (3) Anemia Qualifiers: Anemia type: iron deficiency Iron deficiency anemia type: inadequate dietary iron intake Qualified Code(s): D50.8 - Other iron deficiency anemias Is this a current diagnosis for this admission?: Yes Plan: History of iron deficiency anemia. On supportive transfusions as outpatient with Dr. Thomas. Hemoglobin 10.5 on this admission. Has dropped to 8.2. No apparent sign of bleeding. Iron studies from previous admission showed normal serum iron. Guaiac positive on previous admission. As per family patient had upper and lower GI endoscopy November 2018 which was reported as normal. We will obtain another stool occult test. If positive will consult gastroenterology for possible upper and lower GI endoscopy. Monitor H&H. Supportive transfusions. (4) Congestive heart failure Qualifiers: Heart failure chronicity: unspecified Is this a current diagnosis for this admission?: Yes Plan: History of CHF. BNP only mildly elevated. Troponin negative. Pending 2D echo. Follow-up 2D echo. Cardiac diet. Beta-blockers. MANJIT. (5) Steatohepatitis Is this a current diagnosis for this admission?: Yes Plan: Steatohepatitis was noted on CT scan. Consider adding statin therapy and or Zetia. (6) Tachycardia Is this a current diagnosis for this admission?: Yes Plan: Currently sinus rhythm. Sinus tachycardia. proBNP 666 Troponin negative. Denies any anginal symptoms. DC Cardizem. PRN beta-blockers.
[2019-10-28] MEDS: PREDNISONE 20 MG TABLET PO SCH ×2 (11:42→17:13)
[2019-10-28] MEDS: DOCUSATE SODIUM 100 MG CAPSULE PO SCH ×2 (11:42→17:14)
[2019-10-28] MEDS: BUSPIRONE HCL 10 MG TABLET PO SCH ×2 (11:43→21:32)
[2019-10-28] MEDS: GUAIFENESIN 600 MG TABLET.SA PO SCH ×2 (11:44→21:32)
[2019-10-28] MEDS: FUROSEMIDE 20 MG TABLET PO SCH ×2 (11:45→17:14)
[2019-10-28 12:12] LABS: CHOLESTEROL 103.01 mg/dL (0-200); TRIGLYCERIDES 80 mg/dL (<150)
[2019-10-28 12:23] LABS: DIRECT LDL 63 mg/dL (<100)
[2019-10-28] MEDS: FLUTICASONE/VILANTEROL 200-25 MCG/DOSE IH SCH (14:56)
[2019-10-29] MEDS: LEVALBUTEROL HCL NEB 1.25 MG/3 ML AMPUL NEB SCH ×4 (01:56→20:45)
[2019-10-29] MEDS: CEFEPIME 1 GM/D5W RTU 1 GM/50 ML RTUPB IV SCH ×2 (06:05→21:34)
[2019-10-29] MEDS: HEPARIN SOD (PORCINE) 5,000 UNIT/ML 1 ML VIAL SUBCUT SCH ×3 (06:06→21:21)
[2019-10-29 06:23] LABS: HEMATOCRIT 24.7 % (36.0-47.0); MEAN CORPUSCULAR HEMOGLOBIN 29.5 pg (27.0-33.4); MEAN CORPUSCULAR HGB CONC 32.1 g/dL (32.0-36.0); MEAN CORPUSCULAR VOLUME 92 fl (80-97); PLATELET COUNT 257 10^3/uL (150-450); RED BLOOD COUNT 2.68 10^6/uL (3.72-5.28); RED CELL DISTRIBUTION WIDTH 21.2 % (11.5-14.0); WHITE BLOOD COUNT 7.1 10^3/uL (4.0-10.5)
[2019-10-29 06:43] LABS: ALBUMIN 2.6 g/dL (3.5-5.0); ALKALINE PHOSPHATASE 113 U/L (38-126); ASPARTATE AMINO TRANSFERASE 35 U/L (14-36); BILIRUBIN,DIRECT 0.1 mg/dL (0.0-0.4); BILIRUBIN,TOTAL 0.3 mg/dL (0.2-1.3); BLOOD UREA NITROGEN 21 mg/dL (7-20); CALCIUM 8.2 mg/dL (8.4-10.2); CHLORIDE 100 mmol/L (98-107); GLUCOSE 128 mg/dL (75-110); HEMOGLOBIN 7.9 g/dL (12.0-15.5); POTASSIUM 3.5 mmol/L (3.6-5.0); TOTAL PROTEIN 5.2 g/dL (6.3-8.2)
[2019-10-29 07:07] LABS: CARBON DIOXIDE 38 mmol/L (22-30)
[2019-10-29 07:10] LABS: ANION GAP 2 (5-19)
[2019-10-29] MEDS ORDERED: FUROSEMIDE 20 MG TABLET PO PRN (07:40)
[2019-10-29] MEDS ORDERED: NORMAL SALINE 250 ML IV PRN ×2 (07:40)
[2019-10-29] MEDS: PREDNISONE 20 MG TABLET PO SCH ×2 (09:48→19:44)
[2019-10-29] MEDS: BUSPIRONE HCL 10 MG TABLET PO SCH ×2 (09:49→21:34)
[2019-10-29] MEDS: FUROSEMIDE 20 MG TABLET PO SCH ×2 (09:49→19:45)
[2019-10-29] MEDS: DOCUSATE SODIUM 100 MG CAPSULE PO SCH ×2 (09:49→19:42)
[2019-10-29] MEDS: GUAIFENESIN 600 MG TABLET.SA PO SCH ×3 (09:49→21:45)
[2019-10-29] MEDS: FLUTICASONE/VILANTEROL 200-25 MCG/DOSE IH SCH (09:50)
--- NOTE | 2019-10-29 13:16 | PDOC PROGRESS REPORT ---
Subjective Progress Note for:: 10/29/19 Subjective:: CEFERINO MOSELEY is a 74 year old female with a past medical history of COPD, chronic bronchitis, chronic anemia, anxiety, hypoalbuminemia, liver mass declining follow-up. She presents from half-way following rehab of a recent tib-fib fracture 7 days ago. She denies fever chills nausea vomiting. In the emergency room she is found to be tachycardic in the 120s CTA is negative for pulmonary emboli but significantly positive for moderate bilateral pulmonary effusions and emphysema. She receives treatment of albuterol, Atrovent, Solu- Medrol and referred to the hospitalist for admission. During evaluation she has multiple PVCs with tachycardia and IV Cardizem bolus is initiated with p.o. Cardizem scheduled. She denies recent change in cardiac occasions and denies pain nausea or vomiting. 10/27/2019. Patient noted to be hypotensive and tachycardic otherwise no acute events, saw patient this morning, on BiPAP, does not appear to be any acute distress, alert and oriented, scheduled to have thoracentesis for bilateral pleural effusions today. 10/28/2019. No acute events overnight. Status post thoracentesis 10/27/2019, patient reporting moderate improvement of her respiratory symptoms. Resting in bed on nasal cannula on 6 L saturating WNL. Does not seem to be in any apparent distress. Denies any fever, chills, nausea, vomiting, diarrhea, constipation or any urinary symptoms. 10/29/2018. No acute events overnight. Complaining of persistent right lower extremity pain, otherwise feeling better, denies any fever, chills, nausea, vomiting, diarrhea, constipation or any urinary symptoms. Reason For Visit: TACHYCARDIA BRACHITIS,COPD EXACERBATION PLEURAL Physical Exam Vital Signs: Temp Pulse Resp BP Pulse Ox 98.2 F 131 H 18 110/64 95 10/29/19 11:53 10/29/19 11:53 10/29/19 11:53 10/29/19 11:53 10/29/19 11:53 Intake & Output 10/28/19 10/29/19 10/30/19 06:59 06:59 06:59 Intake Total 1531 819 Output Total 979 1850 Balance 556 -1031 Weight 62.8 kg 62.1 kg General appearance: PRESENT: no acute distress, well-developed, well-nourished Head exam: PRESENT: atraumatic, normocephalic Respiratory exam: PRESENT: clear to auscultation kiana. ABSENT: rales, rhonchi, wheezes Cardiovascular exam: PRESENT: RRR. ABSENT: diastolic murmur, rubs, systolic murmur Pulses: PRESENT: normal dorsalis pedis pul GI/Abdominal exam: PRESENT: normal bowel sounds, soft. ABSENT: distended, guarding, mass, organolmegaly, rebound, tenderness Extremities exam: PRESENT: full ROM, tenderness - Lower extremity below-knee surgical wounds look clean, no erythema, no discharge, tenderness palpation. Neurovascularly intact.. ABSENT: calf tenderness, clubbing, pedal edema Neurological exam: PRESENT: alert, awake, oriented to person, oriented to place, oriented to time, oriented to situation, CN II-XII grossly intact. ABSENT: motor sensory deficit Skin exam: PRESENT: dry, intact, warm. ABSENT: cyanosis, rash Results Laboratory Results: 10/29/19 05:28 10/29/19 05:28 10/29/19 10/29/19 10/29/19 05:28 05:28 08:35 WBC 7.1 RBC 2.68 L Hgb 7.9 L Hct 24.7 L MCV 92 MCH 29.5 MCHC 32.1 RDW 21.2 H Plt Count 257 Sodium 140.2 Potassium 3.5 L Chloride 100 Carbon Dioxide 38 H Anion Gap 2 L BUN 21 H Creatinine 0.59 Est GFR ( Amer) > 60 Glucose 128 H Calcium 8.2 L Total Bilirubin 0.3 AST 35 Alkaline Phosphatase 113 Total Protein 5.2 L Albumin 2.6 L Blood Type O POSITIVE Antibody Screen POSITIVE 10/25/19 22:50 Troponin I < 0.012 NT-Pro-B Natriuret Pep 666 H Impressions: Chest/Abdomen CTA 10/26/19 00:02 IMPRESSION: 1. No obvious pulmonary embolism. 2. Emphysema in the lung bases. Opacification and volume loss posteriorly. Probable changes of increased intravascular volume. 3. Bilateral pleural effusions right greater than left. 4. Pericardial effusion or thickening. 5. Fatty infiltration of the liver. Possible mass in the posterior aspect of the right liver lobe. Thoracentesis Ultrasound 10/27/19 00:00 IMPRESSION: Successful ultrasound guided right-sided thoracentesis as above. Chest X-Ray 10/27/19 18:00 IMPRESSION: NO ACUTE FINDINGS. Assessment and Plan - Diagnosis (1) Acute on chronic respiratory failure with hypoxemia Is this a current diagnosis for this admission?: Yes Plan: Moderate improvement. SPO2 WNL on 2 L. Multifactorial. Likely due to COPD exacerbation complicated by underlying bilateral pleural effusion/healthcare associated pneumonia and history of CHF. Continue telemetry, BiPAP, supplemental oxygen, duo nebs, LAMA, LABA, ICS, incen tive spirometry, flutter valve, pulmonary toileting, thoracentesis, empiric broad-spectrum IV antibiotics. (2) Pleural effusion Is this a current diagnosis for this admission?: Yes Plan: Multifactorial. History of CHF in the setting hypoalbuminemia, cannot rule out malignancy given history of tobacco abuse and possible liver mass in CTA Chest. Status post thoracentesis by radiology 10/27/2019. Pleural follow-up color orange, WBC 192, RBC 5545. Pending LDH, protein and glucose. Cultures no growth so far. Plan as per #1. (3) Anemia Qualifiers: Anemia type: iron deficiency Iron deficiency anemia type: inadequate dietary iron intake Qualified Code(s): D50.8 - Other iron deficiency anemias Is this a current diagnosis for this admission?: Yes Plan: History of iron deficiency anemia. On supportive transfusions as outpatient with Dr. Thomas. Hemoglobin 10.5 on this admission. Has dropped to 7.9. No apparent sign of bleeding. Iron studies from previous admission showed normal serum iron. Guaiac positive on previous admission. Patient is stating that she had upper GI endoscopy November 2018 which was reported as normal. She never had lower GI endoscopy as she does not like the prep. Pending stool guaiac. Patient has not had a bowel movement since yesterday. If positive will consult gastroenterology for possible upper and lower GI endoscopy. We will transfuse 2 units today. Monitor H&H. Supportive transfusions. (4) Congestive heart failure Qualifiers: Heart failure chronicity: unspecified Is this a current diagnosis for this admission?: Yes Plan: History of CHF. BNP only mildly elevated. Troponin negative. Pending 2D echo. Follow-up 2D echo. Cardiac diet. Beta-blockers. MANJIT. (5) Steatohepatitis Is this a current diagnosis for this admission?: Yes Plan: Steatohepatitis was noted on CT scan. Consider adding statin therapy and or Zetia. (6) Tachycardia Is this a current diagnosis for this admission?: Yes Plan: Currently sinus rhythm. Sinus tachycardia. proBNP 666 Troponin negative. Denies any anginal symptoms. DC Cardizem. PRN beta-blockers. (7) History of fracture of leg Is this a current diagnosis for this admission?: Yes Plan: The patient recently had a right below the knee fracture with surgical repair at the [facility]. She is likely on Xarelto for postoperative DVT prophylaxis as she has been in a half-way facility. The Xarelto is being held currently in anticipation of pleurocentesis and w orsening anemia likely GI bleed. Pending guaiac. Hold Xarelto pending work-up for anemia. Continue PT.
[2019-10-29 22:59] LABS: HEMATOCRIT 30.7 % (36.0-47.0); HEMOGLOBIN 9.9 g/dL (12.0-15.5); MEAN CORPUSCULAR HEMOGLOBIN 28.5 pg (27.0-33.4); MEAN CORPUSCULAR HGB CONC 32.1 g/dL (32.0-36.0); MEAN CORPUSCULAR VOLUME 89 fl (80-97); PLATELET COUNT 295 10^3/uL (150-450); RED BLOOD COUNT 3.46 10^6/uL (3.72-5.28); RED CELL DISTRIBUTION WIDTH 22.1 % (11.5-14.0); WHITE BLOOD COUNT 10.6 10^3/uL (4.0-10.5)
[2019-10-29 23:18] LABS: ABSOLUTE LYMPHOCYTES# (MANUAL) 0.7 10^3/uL (0.5-4.7); ABSOLUTE MONOCYTES # (MANUAL) 0.7 10^3/uL (0.1-1.4); ANISOCYTOSIS 3+; BASOPHILS % (MANUAL) 0 % (0-2); EOSINOPHILS % (MANUAL) 0 % (0-6); HYPOCHROMASIA SLIGHT; LYMPHOCYTES % (MANUAL) 7 % (13-45); MONOCYTES % (MANUAL) 7 % (3-13); SEGMENTED NEUTROPHILS % (MAN) 86 % (42-78); TOTAL CELLS COUNTED 100
[2019-10-29 23:19] LABS: PLATELET COMMENT ADEQUATE
[2019-10-30] MEDS: LEVALBUTEROL HCL NEB 1.25 MG/3 ML AMPUL NEB SCH ×4 (02:06→20:42)
[2019-10-30] MEDS ORDERED: PEG 3350/NA SULF,BICARB,CL/KCL 4000 ML PO ONE (03:45)
[2019-10-30] MEDS ORDERED: BISACODYL 5 MG TABEC PO ONE (04:30)
[2019-10-30] MEDS ORDERED: PEG 3350/NA SULF,BICARB,CL/KCL 4000 ML ONE (04:34)
[2019-10-30] MEDS: NORMAL SALINE 1000 ML 1,000 ML IV PRN ×2 (04:55→15:50)
[2019-10-30] MEDS ORDERED: ONDANSETRON HCL INJ/PF 4 MG/2 ML SDV ONE (05:20)
[2019-10-30] MEDS ORDERED: ONDANSETRON HCL INJ/PF 4 MG/2 ML SDV IV PRN (05:21)
[2019-10-30] MEDS: HEPARIN SOD (PORCINE) 5,000 UNIT/ML 1 ML VIAL SUBCUT SCH (05:38)
[2019-10-30 05:57] LABS: ABSOLUTE LYMPHOCYTES (AUTO) 0.5 10^3/uL (0.5-4.7); ABSOLUTE MONOCYTES (AUTO) 0.4 10^3/uL (0.1-1.4); ABSOLUTE NEUT (AUTO) 9.6 10^3/uL (1.7-8.2); BASOPHILS % (AUTO) 0.2 % (0-2); HEMATOCRIT 34.8 % (36.0-47.0); HEMOGLOBIN 11.6 g/dL (12.0-15.5); LYMPHOCYTES % (AUTO) 5.2 % (13-45); MEAN CORPUSCULAR HEMOGLOBIN 28.9 pg (27.0-33.4); MEAN CORPUSCULAR HGB CONC 33.2 g/dL (32.0-36.0); MEAN CORPUSCULAR VOLUME 87 fl (80-97); MONOCYTES % (AUTO) 3.8 % (3-13); PLATELET COUNT 283 10^3/uL (150-450); RED BLOOD COUNT 3.99 10^6/uL (3.72-5.28); RED CELL DISTRIBUTION WIDTH 20.5 % (11.5-14.0); SEGMENTED NEUTROPHILS % (AUTO) 90.8 % (42-78); TOTAL CELLS COUNTED % (AUTO) 100 %; WHITE BLOOD COUNT 10.5 10^3/uL (4.0-10.5)
[2019-10-30 06:10] LABS: ALKALINE PHOSPHATASE 118 U/L (38-126); ANION GAP 6 (5-19); ASPARTATE AMINO TRANSFERASE 34 U/L (14-36); BILIRUBIN,DIRECT 0.4 mg/dL (0.0-0.4); BILIRUBIN,TOTAL 0.7 mg/dL (0.2-1.3); BLOOD UREA NITROGEN 27 mg/dL (7-20); CALCIUM 8.2 mg/dL (8.4-10.2); CARBON DIOXIDE 39 mmol/L (22-30); CHLORIDE 95 mmol/L (98-107); GLUCOSE 121 mg/dL (75-110); POTASSIUM 3.3 mmol/L (3.6-5.0); TOTAL PROTEIN 5.9 g/dL (6.3-8.2)
[2019-10-30] MEDS: CEFEPIME 1 GM/D5W RTU 1 GM/50 ML RTUPB IV SCH ×2 (06:39→18:06)
[2019-10-30] MEDS ORDERED: GLUCAGON,HUMAN RECOMB 1 MG INJ SUBCUT PRN ×2 (07:55→09:14)
[2019-10-30] MEDS ORDERED: DEXTROSE 50%-WATER 25 GM/50 ML DISP.SYRIN IV PRN ×4 (07:55→09:14)
[2019-10-30] MEDS ORDERED: DEXTROSE 40% GEL 15 GM TUBE NG PRN ×2 (07:55)
[2019-10-30] MEDS ORDERED: PHARMACY COMMUNICATION ORDER MC NR (08:00)
--- NOTE | 2019-10-30 08:05 | PDOC CONSULTATION ---
Consultation Consult Date: 10/30/19 Provider Consulted: BECK GUAN History of Present Illness Admission Date/PCP: 10/26/19 01:28 ABBEY ARRIOLA MD History of Present Illness: CEFERINO MOSELEY is a 74 year old female, past medical history of COPD, chronic bronchitis, chronic anemia, anxiety, hypoalbuminemia, liver mass declining follow-up. She [facility] of a recent tib- fib fracture 7 days ago. She denies fever chills nausea vomiting. In the emergency room she is found to be tachycardic in the 120s CTA is negative for pulmonary emboli. Subsequently, the patient was admitted and underwent work-up of her tachycardia; she was found to be anemic with a hemoglobin matriculate of 8 and 25, respectively which are probably increased for administration of 2 units of blood to 11 and 34, respectively. The patient has a history of iron deficient anemia most likely to GI loss as her stools are guaiac positive. Denies to had a previous colonoscopy. She had an EGD few months ago which was negative. I have been consulted to perform an upper lower endoscopy on this patient. Past Medical History Cardiac Medical History: Denies: Congestive Heart Failure, Coronary Artery Disease, Myocardial Infarction Pulmonary Medical History: Reports: Bronchitis, Chronic Obstructive Pulmonary Disease (COPD), Pneumonia Hematology: Reports: Anemia Past Surgical History Past Surgical History: Reports: Orthopedic Surgery Social History Lives with: Family Smoking Status: Former Smoker Electronic Cigarette use?: No Number of Years Smokin Frequency of Alcohol Use: None Hx Recreational Drug Use: No Drugs: None Hx Prescription Drug Abuse: No - Advance Directive Resuscitation Status: Full Code Family History Family History: Other - Denies hx of anemia in the family Parental Family History Reviewed: No Children Family History Reviewed: No Sibling(s) Family History Reviewed.: No Medication/Allergy Home Medications: Acetaminophen [Tylenol 325 mg Tablet] 650 mg PO Q8HP PRN 10/26/19 Albuterol Sulfate [Proair HFA Inhalation Aerosol 8.5 gm MDI] 2 puff IH Q4HP PRN 10/26/19 Apixaban [Eliquis 2.5 mg Tablet] 2.5 mg PO BID 10/26/19 Ferrous Sulfate [Feosol 325 mg Tablet] 325 mg PO BID 10/26/19 Fluticasone/Salmeterol [Advair 250-50 Diskus 14 Dose/Diskus] 1 puff IH Q12 10/26/19 Furosemide [Lasix 40 mg Tablet] 40 mg PO DAILY 10/26/19 Guaifenesin [Mucinex Sr 600 mg Tablet.sa] 600 mg PO Q12 10/26/19 Hydroxyzine HCl [Atarax 10 mg Tablet] 50 mg PO Q8 10/26/19 Ipratropium/Albuterol Sulfate [Duoneb 3 ml Ampul] 1 vial NEB Q4HP PRN 10/26/19 Multivitamin [Daily Multiple Vitamin] 1 tab PO DAILY 10/26/19 Oxycodone HCl [Oxy-Ir 5 mg Tablet] 5 mg PO Q6HP PRN 10/26/19 Pantoprazole Sodium [Protonix [address] Tablet] 40 mg PO DAILY 10/26/19 Allergies/Adverse Reactions: No Known Allergies Allergy (Verified 10/26/19 08:23) Physical Exam Vital Signs: Temp Pulse Resp BP Pulse Ox 98.1 F 91 20 98/60 L 95 10/30/19 04:09 10/30/19 04:09 10/30/19 04:09 10/30/19 04:09 10/30/19 04:09 Intake & Output 10/29/19 10/30/19 10/31/19 06:59 06:59 06:59 Intake Total 819 1350 Output Total 1850 2000 Balance -1031 -650 Weight 62.1 kg 60.8 kg General appearance: PRESENT: disheveled, mild distress, thin Head exam: PRESENT: atraumatic, normocephalic Eye exam: PRESENT: EOMI Mouth exam: PRESENT: moist, neck supple Teeth exam: PRESENT: edentulous Neck exam: PRESENT: full ROM Respiratory exam: PRESENT: clear to auscultation kiana Cardiovascular exam: PRESENT: RRR GI/Abdominal exam: PRESENT: soft Rectal exam: PRESENT: heme (+) stool Extremities exam: PRESENT: full ROM Musculoskeletal exam: PRESENT: full ROM Neurological exam: PRESENT: alert, awake, oriented to time, CN II-XII grossly intact Psychiatric exam: PRESENT: appropriate affect Skin exam: PRESENT: warm Results Laboratory Results: 10/30/19 05:22 10/30/19 05:22 10/27/19 10/27/19 10/27/19 15:20 15:20 15:20 WBC RBC Hgb Hct MCV MCH MCHC RDW Plt Count Seg Neutrophils % Sodium Potassium Chloride Carbon Dioxide Anion Gap BUN Creatinine Est GFR ( Amer) Glucose Calcium Total Bilirubin AST Alkaline Phosphatase Total Protein Albumin Fluid Glucose 102 Fluid Total Protein 2.5 Fluid LDH 175 Stool Occult Blood Blood Type Antibody Screen 10/29/19 10/29/19 10/29/19 08:35 12:40 22:46 WBC 10.6 H RBC 3.46 L Hgb 9.9 L Hct 30.7 L MCV 89 MCH 28.5 MCHC 32.1 RDW 22.1 H Plt Count 295 Seg Neutrophils % Not Reportable Sodium Potassium Chloride Carbon Dioxide Anion Gap BUN Creatinine Est GFR ( Amer) Glucose Calcium Total Bilirubin AST Alkaline Phosphatase Total Protein Albumin Fluid Glucose Fluid Total Protein Fluid LDH Stool Occult Blood POSITIVE Blood Type O POSITIVE Antibody Screen POSITIVE 10/30/19 10/30/19 05:22 05:22 WBC 10.5 RBC 3.99 Hgb 11.6 L Hct 34.8 L MCV 87 MCH 28.9 MCHC 33.2 RDW 20.5 H Plt Count 283 Seg Neutrophils % 90.8 H Sodium 139.7 Potassium 3.3 L Chloride 95 L Carbon Dioxide 39 H Anion Gap 6 BUN 27 H Creatinine 0.69 Est GFR ( Amer) > 60 Glucose 121 H Calcium 8.2 L Total Bilirubin 0.7 AST 34 Alkaline Phosphatase 118 Total Protein 5.9 L Albumin 3.0 L Fluid Glucose Fluid Total Protein Fluid LDH Stool Occult Blood Blood Type Antibody Screen 10/27/19 15:20 Pleural Fluid Gram Stain - Final 10/25/19 22:50 Troponin I < 0.012 NT-Pro-B Natriuret Pep 666 H Impressions: Chest/Abdomen CTA 10/26/19 00:02 IMPRESSION: 1. No obvious pulmonary embolism. 2. Emphysema in the lung bases. Opacification and volume loss posteriorly. Probable changes of increased intravascular volume. 3. Bilateral pleural effusions right greater than left. 4. Pericardial effusion or thickening. 5. Fatty infiltration of the liver. Possible mass in the posterior aspect of the right liver lobe. Thoracentesis Ultrasound 10/27/19 00:00 IMPRESSION: Successful ultrasound guided right-sided thoracentesis as above. Chest X-Ray 10/27/19 18:00 IMPRESSION: NO ACUTE FINDINGS. Assessment & Plan - Diagnosis (1) Iron deficiency anemia due to chronic blood loss Is this a current diagnosis for this admission?: Yes (2) Guaiac positive stools Is this a current diagnosis for this admission?: Yes - Plan Summary Plan Summary: Assessment: 74-year-old multiple medical problems including COPD, pleural effusion, tachycardia, recent tib-fib fracture Anemia, iron deficient most likely due to GI loss as the patient is guaiac positive Her H&H was 8 and 25, respectively on admission and increased probably after administration of 22 blood of 211 and 34, respectively today. Low potassium 3.3 Resolved tachycardia Plan: GoLYTELY bowel prep with Dulcolax today Upper endoscopy and colonoscopy with biopsy and IV sedation provided by anesthesia today Procedure, risks, benefits, complications, explained to the patient, she understands all the above, her questions answered, she decides to proceed. The patient appears to be unable to take the GoLYTELY by herself, we will proc eed with insertion of nasogastric tube and to provide the GoLYTELY by gavage feed
--- NOTE | 2019-10-30 08:08 | PDOC PROGRESS REPORT ---
Subjective Progress Note for:: 10/30/19 Subjective:: No acute events overnight, patient is planned for EGD and colonoscopy but unfortunately has not had any bowel movement with GoLYTELY so far. NG tube is planned to be placed for putting down GoLYTELY through NG tube. Discussed case with surgery this morning. Reason For Visit: TACHYCARDIA BRACHITIS,COPD EXACERBATION PLEURAL Physical Exam Vital Signs: Temp Pulse Resp BP Pulse Ox 98.1 F 91 20 98/60 L 95 10/30/19 04:09 10/30/19 04:09 10/30/19 04:09 10/30/19 04:09 10/30/19 04:09 Intake & Output 10/29/19 10/30/19 10/31/19 06:59 06:59 06:59 Intake Total 819 1350 Output Total 1850 2000 Balance -1031 -650 Weight 62.1 kg 60.8 kg General appearance: PRESENT: no acute distress, well-developed, well-nourished Head exam: PRESENT: atraumatic, normocephalic Eye exam: PRESENT: conjunctiva pink, EOMI, PERRLA. ABSENT: scleral icterus Ear exam: PRESENT: normal external ear exam Mouth exam: PRESENT: moist, tongue midline Neck exam: ABSENT: carotid bruit, JVD, lymphadenopathy, thyromegaly Respiratory exam: PRESENT: clear to auscultation kiana. ABSENT: rales, rhonchi, wheezes Cardiovascular exam: PRESENT: RRR. ABSENT: diastolic murmur, rubs, systolic murmur Pulses: PRESENT: normal dorsalis pedis pul Vascular exam: PRESENT: normal capillary refill GI/Abdominal exam: PRESENT: normal bowel sounds, soft. ABSENT: distended, guarding, mass, organolmegaly, rebound, tenderness Rectal exam: PRESENT: deferred Extremities exam: PRESENT: full ROM. ABSENT: calf tenderness, clubbing, pedal edema Neurological exam: PRESENT: alert, awake, oriented to person, oriented to place, oriented to time, oriented to situation, CN II-XII grossly intact. ABSENT: motor sensory deficit Psychiatric exam: PRESENT: appropriate affect, normal mood. ABSENT: homicidal ideation, suicidal ideation Skin exam: PRESENT: dry, intact, warm. ABSENT: cyanosis, rash Results Laboratory Results: 10/30/19 05:22 10/30/19 05:22 10/27/19 10/27/19 10/27/19 15:20 15:20 15:20 WBC RBC Hgb Hct MCV MCH MCHC RDW Plt Count Seg Neutrophils % Sodium Potassium Chloride Carbon Dioxide Anion Gap BUN Creatinine Est GFR ( Amer) Glucose Calcium Total Bilirubin AST Alkaline Phosphatase Total Protein Albumin Fluid Glucose 102 Fluid Total Protein 2.5 Fluid LDH 175 Stool Occult Blood Blood Type Antibody Screen 10/29/19 10/29/19 10/29/19 08:35 12:40 22:46 WBC 10.6 H RBC 3.46 L Hgb 9.9 L Hct 30.7 L MCV 89 MCH 28.5 MCHC 32.1 RDW 22.1 H Plt Count 295 Seg Neutrophils % Not Reportable Sodium Potassium Chloride Carbon Dioxide Anion Gap BUN Creatinine Est GFR ( Amer) Glucose Calcium Total Bilirubin AST Alkaline Phosphatase Total Protein Albumin Fluid Glucose Fluid Total Protein Fluid LDH Stool Occult Blood POSITIVE Blood Type O POSITIVE Antibody Screen POSITIVE 10/30/19 10/30/19 05:22 05:22 WBC 10.5 RBC 3.99 Hgb 11.6 L Hct 34.8 L MCV 87 MCH 28.9 MCHC 33.2 RDW 20.5 H Plt Count 283 Seg Neutrophils % 90.8 H Sodium 139.7 Potassium 3.3 L Chloride 95 L Carbon Dioxide 39 H Anion Gap 6 BUN 27 H Creatinine 0.69 Est GFR ( Amer) > 60 Glucose 121 H Calcium 8.2 L Total Bilirubin 0.7 AST 34 Alkaline Phosphatase 118 Total Protein 5.9 L Albumin 3.0 L Fluid Glucose Fluid Total Protein Fluid LDH Stool Occult Blood Blood Type Antibody Screen 10/27/19 15:20 Pleural Fluid Gram Stain - Final 10/25/19 22:50 Troponin I < 0.012 NT-Pro-B Natriuret Pep 666 H Impressions: Chest/Abdomen CTA 10/26/19 00:02 IMPRESSION: 1. No obvious pulmonary embolism. 2. Emphysema in the lung bases. Opacification and volume loss posteriorly. Probable changes of increased intravascular volume. 3. Bilateral pleural effusions right greater than left. 4. Pericardial effusion or thickening. 5. Fatty infiltration of the liver. Possible mass in the posterior aspect of the right liver lobe. Thoracentesis Ultrasound 10/27/19 00:00 IMPRESSION: Successful ultrasound guided right-sided thoracentesis as above. Chest X-Ray 10/27/19 18:00 IMPRESSION: NO ACUTE FINDINGS. Assessment & Plan - Diagnosis (1) Anemia Qualifiers: Anemia type: iron deficiency Iron deficiency anemia type: inadequate dietary iron intake Qualified Code(s): D50.8 - Other iron deficiency anemias Is this a current diagnosis for this admission?: Yes Plan: Feel that patient is having some sort of blood loss may be GI source, Hemoccult positive again, needs EGD and colonoscopy hopefully can get done today. - Time Time Spent with patient: 15-24 minutes
[2019-10-30] MEDS ORDERED: ACETAMINOPHEN SOLN 325 MG/10.15 ML UDCUP NG PRN ×2 (08:12→11:17)
[2019-10-30] MEDS ORDERED: POTASSIUM CHLORIDE 20 MEQ PACKET NG ONE ×2 (08:30→11:30)
[2019-10-30] MEDS ORDERED: MAG HYDROX/AL HYDROX/SIMETH SUSP 30 ML UDCUP NG PRN (08:30)
[2019-10-30] MEDS ORDERED: POTASSI CL 20 MEQ/50 ML RIDER 20 MEQ/50 ML RTUPB IV ONE (08:30)
[2019-10-30] MEDS ORDERED: MAGNESIUM HYDROXIDE SUSP 30 ML UDCUP NG PRN (08:30)
[2019-10-30] MEDS ORDERED: OXYCODONE HCL IR 5 MG TABLET NG PRN (08:30)
[2019-10-30] MEDS ORDERED: DEXTROSE 40% GEL 15 GM TUBE PO PRN ×2 (09:14)
--- NOTE | 2019-10-30 09:20 | RADIOLOGY REPORT (SQ) ---
EXAM DESCRIPTION: KUB/ABDOMEN (SINGLE VIEW) COMPLETED DATE/TIME: 10/30/2019 8:43 am REASON FOR STUDY: Check Placement of NG Tube COMPARISON: None. NUMBER OF VIEWS: One view. TECHNIQUE: Supine radiographic image of the abdomen acquired. LIMITATIONS: None. FINDINGS: BOWEL GAS PATTERN: No dilated loops of bowel in the upper abdomen CALCIFICATIONS: Peripherally calcified mass that on correlation with the CT from 06/13/2012 represents a right upper lobe renal mass. SOFT TISSUES: No abnormality. HARDWARE: The tip and side hole of the enteric tube project past the gastroesophageal junction and wi thin the gastric lumen. BONES: No acute findings. OTHER: No basilar consolidation or sizable pleural effusion. IMPRESSION: The tip and side hole of the enteric tube project past the gastroesophageal junction and within the gastric lumen. TECHNICAL DOCUMENTATION: JOB ID: [id number] 2010 [employer]- All Rights Reserved Reading location - IP/workstation name: [email or web address]
--- NOTE | 2019-10-30 09:30 | XCELERA REPORT ---
[address] [address] Transthoracic Echocardiogram Report Name: CEFERINO MOSELEY Age: 74 yrs Gender: Female : 1945 Patient Status: Inpatient Patient Location: [address] [place], [place] [address] Study Date: 10/27/2019 06:25 PM History: CHF Pleural effusion Height: 63 in Weight: 139 lb BSA: 1.7 m2 Procedure: A complete two-dimensional transthoracic echocardiogram was performed (2D, M-mode, spectral and color flow Doppler). The study was technically difficult with many images being suboptimal in quality. Reason For Study: Heart failure, pleural effusion Previous Evaluation: No previous studies were available. History: CHF. Ordering Physician: SERGEY MITCHELL Performed By: Karyn Bingham Interpretation Summary The left ventricle is hyperdynamic. The Ejection Fraction estimate is >70% The right ventricle is normal in size and function. There is a trace amount of mitral regurgitation There is a mild amount of tricuspid regurgitation There is no pericardial effusion. MMode/2D Measurements & Calculations RVDd: 2.3 cm LVIDd: 4.6 cm FS: 35.0 % Ao root diam: 2.6 cm IVSd: 1.0 cm LVIDs: 3.0 cm EDV(Teich): Ao root area: LVPWd: 0.80 cm 99.3 ml 5.5 cm2 ESV(Teich): LA dimension: 2.9 cm 35.4 ml EF(Teich): 64.3 % LVLd ap4: 7.1 cm SV(MOD-sp4): EDV(MOD-sp4): 45.0 ml 71.0 ml LVLs ap4: 6.1 cm ESV(MOD-sp4): 26.0 ml EF(MOD-sp4): 63.4 % Doppler Measurements & Calculations MV E max marycruz: MV P1/2t max marycruz: Ao V2 max: LV V1 max P.9 cm/sec 135.1 cm/sec 132.7 cm/sec 4.7 mmHg MV A max marycruz: MV P1/2t: 59.8 msec Ao max P.0 mmHgLV V1 max: 113.5 cm/sec MVA(P1/2t): 3.7 cm2 108.6 cm/sec MV E/A: 1.1 MV dec slope: 661.7 cm/sec2 MV dec time: 0.19 sec PA V2 max: TR max marycruz: MV P1/2t-pr_phl: 93.8 cm/sec 258.2 cm/sec 59.8 msec PA max P.5 mmHgTR max P.7 mmHg Left Ventricle The left ventricle is grossly normal size. There is borderline concentric left ventricular hypertrophy. The Ejection Fraction estimate is >70%. The left ventricle is hyperdynamic. Doppler measurements suggest pseudonormalized left ventricular relaxation, which is associated with grade II/IV or mild to moderate diastolic dysfunction. No regional wall motion abnormalities noted. Right Ventricle The right ventricle is normal in size and function. Atria The right atrium is normal. The left atrial size is normal. Mitral Valve The mitral valve is grossly normal. There is a trace amount of mitral regurgitation. Aortic Valve The aortic valve is not well visualized secondary to technical limitations. There is no aortic valve stenosis. Tricuspid Valve The tricuspid valve is normal in structure and function. There is a mild amount of tricuspid regurgitation. Tricuspid regurgitation jet envelope not well defined to measure RV systolic pressure accurately. Pulmonic Valve The pulmonic valve is not well visualized. Great Vessels The aortic root is normal size. Effusions There is no pericardial effusion. : SERGEY MITCHELL Anil
[2019-10-30] MEDS ORDERED: NA PHOS,M-B/NA PHOS,DI-BA (ADULT) 133 ML ENEMA PR SCH (10:00)
[2019-10-30] MEDS ORDERED: DOCUSATE SODIUM 100 MG/10 ML UDC NG SCH (10:00)
[2019-10-30] MEDS ORDERED: FUROSEMIDE ORAL SOLN 40 MG/5 ML UDCUP NG SCH (10:00)
[2019-10-30] MEDS: BUSPIRONE HCL 10 MG TABLET NG SCH ×2 (11:07→21:58)
[2019-10-30] MEDS: GUAIFENESIN SYRP 200 MG/10 ML UDC NG SCH ×4 (11:07→21:58)
[2019-10-30] MEDS: PREDNISONE 20 MG TABLET NG SCH ×2 (11:07→18:06)
[2019-10-30] MEDS: ONDANSETRON HCL INJ/PF 4 MG/2 ML SDV IV PRN ×2 (11:08→18:08)
[2019-10-30] MEDS: FLUTICASONE/VILANTEROL 200-25 MCG/DOSE IH SCH (12:18)
[2019-10-30 15:07] LABS: BLOOD UREA NITROGEN 31 mg/dL (7-20); CALCIUM 8.1 mg/dL (8.4-10.2); CHLORIDE 96 mmol/L (98-107); GLUCOSE 95 mg/dL (75-110)
[2019-10-30 15:13] LABS: ANION GAP 5 (5-19); CARBON DIOXIDE 36 mmol/L (22-30)
[2019-10-30] MEDS ORDERED: PEG 3350/NA SULF,BICARB,CL/KCL 4000 ML NG ONE (16:00)
--- NOTE | 2019-10-30 16:22 | PDOC PROGRESS REPORT ---
Subjective Progress Note for:: 10/30/19 Subjective:: Patient has no complaints today. Denies any shortness of breath. Was nauseous earlier this morning but currently feels well. Was unable to drink bowel prep so endoscopy has been scheduled for tomorrow. Reason For Visit: TACHYCARDIA BRACHITIS,COPD EXACERBATION PLEURAL Physical Exam Vital Signs: Temp Pulse Resp BP Pulse Ox 97.4 F 95 18 117/57 L 96 10/30/19 11:58 10/30/19 14:36 10/30/19 14:36 10/30/19 11:58 10/30/19 14:36 Intake & Output 10/29/19 10/30/19 10/31/19 06:59 06:59 06:59 Intake Total 819 1350 1100 Output Total 1850 2000 Balance -1031 -650 1100 Weight 62.1 kg 60.8 kg General appearance: PRESENT: no acute distress, cooperative Neck exam: ABSENT: JVD Respiratory exam: PRESENT: clear to auscultation kiana, unlabored. ABSENT: tachypnea, wheezes Cardiovascular exam: PRESENT: RRR, +S1, +S2. ABSENT: tachycardia GI/Abdominal exam: PRESENT: normal bowel sounds, soft. ABSENT: rebound, rigid, tenderness Neurological exam: PRESENT: alert, awake, other - Very hard of hearing Results Laboratory Results: 10/30/19 14:27 10/27/19 10/27/19 10/29/19 15:20 15:20 08:35 WBC RBC Hgb Hct MCV MCH MCHC RDW Plt Count Seg Neutrophils % Sodium Potassium Chloride Carbon Dioxide Anion Gap BUN Creatinine Est GFR ( Amer) Glucose Calcium Total Bilirubin AST Alkaline Phosphatase Total Protein Albumin Fluid Total Protein 2.5 Fluid LDH 175 Blood Type O POSITIVE Antibody Screen POSITIVE 10/29/19 10/30/19 10/30/19 22:46 05:22 05:22 WBC 10.6 H 10.5 RBC 3.46 L 3.99 Hgb 9.9 L 11.6 L Hct 30.7 L 34.8 L MCV 89 87 MCH 28.5 28.9 MCHC 32.1 33.2 RDW 22.1 H 20.5 H Plt Count 295 283 Seg Neutrophils % Not Reportable 90.8 H Sodium 139.7 Potassium 3.3 L Chloride 95 L Carbon Dioxide 39 H Anion Gap 6 BUN 27 H Creatinine 0.69 Est GFR ( Amer) > 60 Glucose 121 H Calcium 8.2 L Total Bilirubin 0.7 AST 34 Alkaline Phosphatase 118 Total Protein 5.9 L Albumin 3.0 L Fluid Total Protein Fluid LDH Blood Type Antibody Screen 10/30/19 10/30/19 14:27 14:34 WBC Cancelled RBC Cancelled Hgb Cancelled Hct Cancelled MCV Cancelled MCH Cancelled MCHC Cancelled RDW Cancelled Plt Count Cancelled Seg Neutrophils % Cancelled Sodium 136.7 L Potassium 5.0 D Chloride 96 L Carbon Dioxide 36 H Anion Gap 5 BUN 31 H Creatinine 0.64 Est GFR ( Amer) > 60 Glucose 95 Calcium 8.1 L Total Bilirubin AST Alkaline Phosphatase Total Protein Albumin Fluid Total Protein Fluid LDH Blood Type Antibody Screen 10/27/19 15:20 Pleural Fluid Gram Stain - Final 10/25/19 22:50 Troponin I < 0.012 NT-Pro-B Natriuret Pep 666 H Impressions: Chest/Abdomen CTA 10/26/19 00:02 IMPRESSION: 1. No obvious pulmonary embolism. 2. Emphysema in the lung bases. Opacification and volume loss posteriorly. Probable changes of increased intravascular volume. 3. Bilateral pleural effusions right greater than left. 4. Pericardial effusion or thickening. 5. Fatty infiltration of the liver. Possible mass in the posterior aspect of the right liver lobe. Thoracentesis Ultrasound 10/27/19 00:00 IMPRESSION: Successful ultrasound guided right-sided thoracentesis as above. Chest X-Ray 10/27/19 18:00 IMPRESSION: NO ACUTE FINDINGS. KUB X-Ray 10/30/19 07:53 IMPRESSION: The tip and side hole of the enteric tube project past the gastroesophageal junction and within the gastric lumen. Assessment and Plan - Diagnosis (1) Acute on chronic respiratory failure with hypoxemia Is this a current diagnosis for this admission?: Yes Plan: Likely secondary to COPD complicated by pleural effusions Patient is status post thoracentesis Incentive spirometer to help with the compressive atelectasis. On review of postthoracentesis x-ray, there is no evidence of any pneumonia/consolidation I reviewed the CT image, there does not seem to be any pneumonia but rather pleural effusion and compressive atelectasis. Plan to DC antibiotics (2) Pleural effusion, transudate Is this a current diagnosis for this admission?: Yes Plan: s/p thoracentesis on 10/27/2019 urinating 400 cc of transudate of fluid. Cytology pending. Possible concern that this could be due to diastolic heart failure. We will resume diuresis later. (3) Acute on chronic diastolic heart failure Is this a current diagnosis for this admission?: Yes Plan: Echo showing grade 2 diastolic dysfunction, EF over 70% and only mild TR. BNP is only very mildly elevated in the 600s which is even below her prior ba seline. Lasix currently on hold. BMP does show some evidence of metabolic alkalosis. Follow-up venous blood gas in the morning to evaluate elevated bicarb level. Will resume Lasix at a later date as she would need gentle diuresis especially given translated pleural effusions. (4) History of fracture of leg Is this a current diagnosis for this admission?: Yes Plan: Patient was placed on low-dose Eliquis for DVT prophylaxis following right knee fracture with surgical fixation and [facility]. Currently Eliquis on hold pending evaluation of anemia. (5) Anemia Qualifiers: Anemia type: iron deficiency Iron deficiency anemia type: unspecified iron deficiency Qualified Code(s): D50.9 - Iron deficiency anemia, unspecified Is this a current diagnosis for this admission?: Yes Plan: History of iron deficiency anemia. On supportive transfusions as outpatient with Dr. Thomas. Hematology following. Patient received 2 units of blood yesterday. Upper and lower endoscopy planned for tomorrow to evaluate for GI source. Continue to trend H&H. GoLYTELY now and to night. (6) COPD (chronic obstructive pulmonary disease) Qualifiers: COPD type: emphysema Emphysema type: unspecified Qualified Code(s): J43.9 - Emphysema, unspecified Is this a current diagnosis for this admission?: Yes Plan: Continue breo and prn xopenex. No active wheezing currently. (7) Liver mass, right lobe Is this a current diagnosis for this admission?: Yes Plan: Noted incidentally of a possible right lobe mass on chest CT. Will check abdominal ultrasound right upper quadrant for focused assessment. - Time Time Spent with patient: 15-24 minutes
[2019-10-30 16:49] LABS: HEMATOCRIT 33.5 % (36.0-47.0); HEMOGLOBIN 10.6 g/dL (12.0-15.5); MEAN CORPUSCULAR HEMOGLOBIN 27.6 pg (27.0-33.4); MEAN CORPUSCULAR HGB CONC 31.8 g/dL (32.0-36.0); MEAN CORPUSCULAR VOLUME 87 fl (80-97); PLATELET COUNT 195 10^3/uL (150-450); RED BLOOD COUNT 3.85 10^6/uL (3.72-5.28); RED CELL DISTRIBUTION WIDTH 20.1 % (11.5-14.0); WHITE BLOOD COUNT 8.6 10^3/uL (4.0-10.5)
[2019-10-30 17:16] LABS: ABSOLUTE LYMPHOCYTES# (MANUAL) 0.3 10^3/uL (0.5-4.7); ABSOLUTE MONOCYTES # (MANUAL) 0.2 10^3/uL (0.1-1.4); BAND NEUTROPHILS % (MANUAL) 1 % (3-5); BASOPHILS % (MANUAL) 0 % (0-2); EOSINOPHILS % (MANUAL) 0 % (0-6); LYMPHOCYTES % (MANUAL) 4 % (13-45); METAMYELOCYTES % (MANUAL) 1 % (0-1); MONOCYTES % (MANUAL) 2 % (3-13); SEGMENTED NEUTROPHILS % (MAN) 92 % (42-78); TOTAL CELLS COUNTED 100
[2019-10-30 17:17] LABS: ANISOCYTOSIS 2+; OVALOCYTES SLIGHT; PLATELET CLUMPS PRESENT; PLATELET COMMENT ADEQUATE; POIKILOCYTOSIS SLIGHT
[2019-10-31] MEDS: GUAIFENESIN SYRP 200 MG/10 ML UDC NG SCH ×6 (01:41→21:58)
[2019-10-31] MEDS: LEVALBUTEROL HCL NEB 1.25 MG/3 ML AMPUL NEB SCH ×4 (02:56→20:08)
[2019-10-31 05:06] LABS: HEMATOCRIT 28.9 % (36.0-47.0); HEMOGLOBIN 9.5 g/dL (12.0-15.5); MEAN CORPUSCULAR HEMOGLOBIN 28.6 pg (27.0-33.4); MEAN CORPUSCULAR HGB CONC 32.8 g/dL (32.0-36.0); MEAN CORPUSCULAR VOLUME 87 fl (80-97); PLATELET COUNT 172 10^3/uL (150-450); RED BLOOD COUNT 3.31 10^6/uL (3.72-5.28); RED CELL DISTRIBUTION WIDTH 20.3 % (11.5-14.0); WHITE BLOOD COUNT 7.5 10^3/uL (4.0-10.5)
[2019-10-31] MEDS: CEFEPIME 1 GM/D5W RTU 1 GM/50 ML RTUPB IV SCH (05:13)
[2019-10-31 05:19] LABS: VENOUS BLOOD BASE EXCESS 17.1 mmol/L; VENOUS BLOOD HCO3 44.5 mmol/L (20-32); VENOUS BLOOD PH 7.4 (7.30-7.42)
[2019-10-31 05:31] LABS: VENOUS BLOOD PCO2 73.3 mmHg (35-63)
[2019-10-31 05:33] LABS: BLOOD UREA NITROGEN 18 mg/dL (7-20); CALCIUM 7.6 mg/dL (8.4-10.2); GLUCOSE 88 mg/dL (75-110)
[2019-10-31 05:41] LABS: CHLORIDE 99 mmol/L (98-107)
[2019-10-31 05:46] LABS: CARBON DIOXIDE 39 mmol/L (22-30)
[2019-10-31 05:47] LABS: ANION GAP 0 (5-19); POTASSIUM 3.8 mmol/L (3.6-5.0)
--- NOTE | 2019-10-31 08:44 | RADIOLOGY REPORT (SQ) ---
EXAM DESCRIPTION: U/S ABDOMEN LIMITED W/O DOP COMPLETED DATE/TIME: 10/30/2019 11:14 pm REASON FOR STUDY: ? incidental liver mass seen on CT COMPARISON: CT chest dated 10/26/2019. CT abdomen dated 06/13/2012. TECHNIQUE: Dynamic and static grayscale images acquired of the abdomen and recorded on PACS. Additio nal selected color Doppler and spectral images recorded. Note: Exam does not meet criteria for a complete doppler/duplex scan LIMITATIONS: Study limited due to acoustical interference from fat or from air in the bowel. FINDINGS: PANCREAS: Poorly seen secondary to acoustical interference from fat or from air in the bow el. No visualized masses. Duct normal caliber as seen. LIVER: Echotexture is coarse with increased echogenicity consistent with fatty infiltration. LIVER VASCULATURE: Normal directional flow of the main portal vein and hepatic veins. GALLBLADDER: Gallstones. No pericholecystic fluid. No wall thickening. ULTRASOUND-DETECTED MERCHANT'S SIGN: Negative. INTRAHEPATIC DUCTS AND COMMON DUCT: CBD and intrahepatic ducts normal caliber. No filling defects. INFERIOR VENA CAVA: Normal flow. AORTA: No aneurysm. RIGHT KIDNEY: Normal size. Normal echogenicity. Ill-defined hypoechoic cortical lesion measuring 3. 4 cm with probable peripheral calcifications. No hydronephrosis. No calcifications. PERITONEAL AND PLEURAL SPACES: No ascites or effusions. OTHER: No other significant finding. IMPRESSION: 1. LIMITED STUDY. FATTY INFILTRATION OF THE LIVER. NO HEPATIC LESION IDENTIFIED. 2. GALLSTONES. 3. ILL-DEFINED HYPOECHOIC CORTICAL LESION IN THE RIGHT KIDNEY. THIS APPEARS TO CORRESPOND WITH A JAJA CIFIED CYST SEEN ON PRIOR CT ABDOMEN IN 2011. TECHNICAL DOCUMENTATION: JOB ID: [id number] [employer]- All Rights Reserved Reading location - IP/workstation name: [email or web address]
[2019-10-31] MEDS: PREDNISONE 20 MG TABLET NG SCH ×2 (09:53→17:42)
[2019-10-31] MEDS: BUSPIRONE HCL 10 MG TABLET NG SCH ×2 (09:53→21:55)
[2019-10-31] MEDS: FLUTICASONE/VILANTEROL 200-25 MCG/DOSE IH SCH (09:58)
[2019-10-31] MEDS ORDERED: PROPOFOL INJ 200 MG/20 ML VIAL IV ONE (14:22)
--- NOTE | 2019-10-31 16:21 | RADIOLOGY REPORT (SQ) ---
EXAM DESCRIPTION: CHEST SINGLE VIEW COMPLETED DATE/TIME: 10/31/2019 4:03 pm REASON FOR STUDY: HYPOXEMIA COMPARISON: 10/27/2019 EXAM PARAMETERS: NUMBER OF VIEWS: One view. TECHNIQUE: Single frontal radiographic view of the chest acquired. RADIATION DOSE: NA LIMITATIONS: None. FINDINGS: LUNGS AND PLEURA: No opacities, masses or pneumothorax. No pleural effusion. MEDIASTINUM AND HILAR STRUCTURES: No masses. Contour normal. HEART AND VASCULAR STRUCTURES: Heart normal in size. Normal vasculature. BONES: No acute findings. HARDWARE: None in the chest. OTHER: No other significant finding. IMPRESSION: NO ACUTE RADIOGRAPHIC FINDING IN THE CHEST. TECHNICAL DOCUMENTATION: JOB ID: [id number] 2010 [id number]- All Rights Reserved Reading location - IP/workstation name: [email or web address]
[2019-10-31 16:47] LABS: ARTERIAL BLOOD BASE EXCESS 10.7 mmol/L; ARTERIAL BLOOD H2CO3 1.63 mmol/L (1.05-1.35); ARTERIAL BLOOD HCO3 36.4 mmol/L (20-24); ARTERIAL BLOOD O2 SATURATION 96.5 % (94-98); ARTERIAL BLOOD PCO2 54.1 mmHg (35-45); ARTERIAL BLOOD PH 7.45 (7.35-7.45); ARTERIAL BLOOD PO2 84.1 mmHg (80-100); ARTERIAL BLOOD TOTAL CO2 38.1 mmol/L (21-25)
[2019-10-31 16:48] LABS: ARTERIAL BLOOD FIO2 4L
--- NOTE | 2019-10-31 17:04 | PDOC PROGRESS REPORT ---
Subjective Progress Note for:: 10/31/19 Subjective:: Patient was noted to be having elevated PCO2 blood gas this morning but with adequate metabolic compensation. She was unfortunately unable to go through with the endoscopy planned for today given that her pulse oximetry dropped into the 70s on 2 L nasal cannula. Patient however does not endorse any shortness of breath herself and feels well. Reason For Visit: TACHYCARDIA BRACHITIS,COPD EXACERBATION PLEURAL Physical Exam Vital Signs: Temp Pulse Resp BP Pulse Ox 98.9 F 91 28 H 136/56 H 94 10/31/19 15:13 10/31/19 16:08 10/31/19 16:08 10/31/19 16:08 10/31/19 16:08 Intake & Output 10/30/19 10/31/19 11/01/19 06:59 06:59 06:59 Intake Total 1350 1200 1025 Output Total 2000 700 200 Balance -650 500 825 Weight 60.8 kg 63.2 kg General appearance: PRESENT: no acute distress, cooperative Neck exam: ABSENT: JVD Respiratory exam: PRESENT: clear to auscultation kiana, unlabored. ABSENT: accessory muscle use, tachypnea, wheezes Cardiovascular exam: PRESENT: RRR, +S1, +S2. ABSENT: tachycardia GI/Abdominal exam: PRESENT: normal bowel sounds, soft. ABSENT: rebound, rigid, tenderness Neurological exam: PRESENT: alert, awake, oriented to person, oriented to place, oriented to time Results Laboratory Results: 10/31/19 04:52 10/31/19 04:52 10/30/19 10/31/19 10/31/19 15:41 04:52 04:52 WBC 8.6 7.5 RBC 3.85 3.31 L Hgb 10.6 L 9.5 L Hct 33.5 L 28.9 L MCV 87 87 MCH 27.6 28.6 MCHC 31.8 L 32.8 RDW 20.1 H 20.3 H Plt Count 195 172 Seg Neutrophils % Not Reportable VBG pH 7.40 VBG pCO2 73.3 H* VBG HCO3 44.5 H VBG Base Excess 17.1 Sodium Potassium Chloride Carbon Dioxide Anion Gap BUN Creatinine Est GFR ( Amer) Glucose Calcium 10/31/19 04:52 WBC RBC Hgb Hct MCV MCH MCHC RDW Plt Count Seg Neutrophils % VBG pH VBG pCO2 VBG HCO3 VBG Base Excess Sodium 138.3 Potassium 3.8 D Chloride 99 Carbon Dioxide 39 H Anion Gap 0 L BUN 18 Creatinine 0.49 L Est GFR ( Amer) > 60 Glucose 88 Calcium 7.6 L 10/27/19 15:20 Pleural Fluid Gram Stain - Final 10/27/19 15:20 Pleural Fluid Body Fluid Culture - Final NO AEROBIC OR ANAEROBIC ORGANISMS RECOVERED 10/26/19 03:34 Blood Blood Culture - Final NO GROWTH IN 5 DAYS 10/25/19 22:50 Blood Blood Culture - Final NO GROWTH IN 5 DAYS 10/25/19 22:50 Troponin I < 0.012 NT-Pro-B Natriuret Pep 666 H Impressions: Chest/Abdomen CTA 10/26/19 00:02 IMPRESSION: 1. No obvious pulmonary embolism. 2. Emphysema in the lung bases. Opacification and volume loss posteriorly. Probable changes of increased intravascular volume. 3. Bilateral pleural effusions right greater than left. 4. Pericardial effusion or thickening. 5. Fatty infiltration of the liver. Possible mass in the posterior aspect of the right liver lobe. Thoracentesis Ultrasound 10/27/19 00:00 IMPRESSION: Successful ultrasound guided right-sided thoracentesis as above. Abdomen Ultrasound 10/30/19 00:00 IMPRESSION: 1. LIMITED STUDY. FATTY INFILTRATION OF THE LIVER. NO HEPATIC LESION IDENTIFIE D. 2. GALLSTONES. 3. ILL-DEFINED HYPOECHOIC CORTICAL LESION IN THE RIGHT KIDNEY. THIS APPEARS TO CORRESPOND WITH A CALCIFIED CYST SEEN ON PRIOR CT ABDOMEN IN 2011. KUB X-Ray 10/30/19 07:53 IMPRESSION: The tip and side hole of the enteric tube project past the gastroes ophageal junction and within the gastric lumen. Chest X-Ray 10/31/19 00:00 IMPRESSION: NO ACUTE RADIOGRAPHIC FINDING IN THE CHEST. Assessment and Plan - Diagnosis (1) Acute on chronic respiratory failure with hypoxemia Is this a current diagnosis for this admission?: Yes Plan: Likely secondary to COPD complicated by pleural effusions Patient is status post thoracentesis 10/27/19 Incentive spirometer to help with the compressive atelectasis. Interestingly, patient desatted into the high 70s while at endoscopy suite preventing the endoscopy. However patient maintaining SPO2 in the 90s on 2 L nasal cannula while on the floor. I have placed a repeat chest x-ray to reevaluate this CT on admission was negative for PE but did show bilateral pleural effusions with compressive atelectasis Continue with oxygen supplementation as needed (2) Chronic hypercapnic respiratory failure Is this a current diagnosis for this admission?: Yes Plan: Secondary to COPD. Her acute exacerbation seems to have pretty much resolved at this point her lungs sounds are clear. We will continue prednisone for 1 more day. Patient placed on BiPAP this morning given PCO2 in the 70s though with metabolic compensation. She would need to sleep with a nocturnal BiPAP and will monitor PCO2 (3) Pleural effusion, transudate Is this a current diagnosis for this admission?: Yes Plan: s/p thoracentesis on 10/27/2019 urinating 400 cc of transudate of fluid. Cytology negative for malignancy. Possible concern that this could be due to diastolic heart failure. Lasix 40 mg twice daily (4) Acute on chronic diastolic heart failure Is this a current diagnosis for this admission?: Yes Plan: Echo showing grade 2 diastolic dysfunction, EF over 70% and only mild TR. BNP is only very mildly elevated in the 600s which is even below her prior baseline. Lasix hats 40 mg twice daily p.o. (5) Anemia Qualifiers: Anemia type: iron deficiency Iron deficiency anemia type: unspecified iron deficiency Qualified Code(s): D50.9 - Iron deficiency anemia, unspecified Is this a current diagnosis for this admission?: Yes Plan: History of iron deficiency anemia. On supportive transfusions as outpatient with Dr. Thomas. Hematology following. Patient received 2 units of blood on 10/29/2019 Unfortunately, patient was hypoxic at the endoscopy suite and as such upper and lower endoscopy were unable to be performed today. Patient's respiratory status will need to be optimized before reattempting procedure. In the meantime continue to monitor H&H daily (6) History of fracture of leg Is this a current diagnosis for this admission?: Yes Plan: Patient was placed on low-dose Eliquis for DVT prophylaxis following right knee fracture with surgical fixation and [facility]. Currently Eliquis on hold pending evaluation of anemia. (7) COPD (chronic obstructive pulmonary disease) Qualifiers: COPD type: emphysema Emphysema type: unspecified Qualified Code(s): J43.9 - Emphysema, unspecified Is this a current diagnosis for this admission?: Yes Plan: Continue breo and prn xopenex. No active wheezing currently. Prednisone for 1 more day (8) Liver mass, right lobe Is this a current diagnosis for this admission?: Yes Plan: Noted incidentally of a possible ? right lobe mass on chest CT. however focused evaluation with right upper quadrant ultrasound does not show any liver mass. - Time Time Spent with patient: 15-24 minutes
[2019-10-31] MEDS: FUROSEMIDE 40 MG TABLET NG SCH (17:42)
--- NOTE | 2019-10-31 20:03 | Progress Note ---
Provider Note Provider Note: Patient was brought to the operating room this evening for a elective upper and lower endoscopy. Procedure was planned using LMAC anesthesia. However upon arrival to the operating room patient was noted to have an O2 saturation 75%. Although patient was apparently comfortable and did not complain of shortness of breath because of the low O2 saturation and the procedure was canceled by anesthesia. Spoke with , will evaluate the patient notify surgery when the patient is more stable for colonoscopy.
[2019-11-01] MEDS: GUAIFENESIN SYRP 200 MG/10 ML UDC NG SCH ×7 (01:02→21:29)
[2019-11-01] MEDS: LEVALBUTEROL HCL NEB 1.25 MG/3 ML AMPUL NEB SCH ×4 (01:20→21:26)
--- NOTE | 2019-11-01 08:09 | PDOC PROGRESS REPORT ---
Subjective Progress Note for:: 11/01/19 Subjective:: Yesterday patient had desaturation down to 75% while EGD and colonoscopy was being initiated, therefore the procedure was aborted, discussed this with the patient again this morning and at this point it sounds like she does not want anything more to be done. I asked nursing to talk with hospitalist team, given her tenuous respiratory status and possible ongoing GI bleed, she may be hospice appropriate. Reason For Visit: TACHYCARDIA BRACHITIS,COPD EXACERBATION PLEURAL Physical Exam Vital Signs: Temp Pulse Resp BP Pulse Ox 97.4 F 84 22 H 121/43 L 93 11/01/19 03:19 11/01/19 03:19 11/01/19 03:19 11/01/19 03:19 11/01/19 03:19 Intake & Output 10/31/19 11/01/19 11/02/19 06:59 06:59 06:59 Intake Total 1200 1410 Output Total 700 1950 Balance 500 -540 Weight 63.2 kg 61.5 kg General appearance: PRESENT: no acute distress, well-developed, well-nourished Head exam: PRESENT: atraumatic, normocephalic Eye exam: PRESENT: conjunctiva pink, EOMI, PERRLA. ABSENT: scleral icterus Ear exam: PRESENT: normal external ear exam Mouth exam: PRESENT: moist, tongue midline Neck exam: ABSENT: carotid bruit, JVD, lymphadenopathy, thyromegaly Respiratory exam: PRESENT: clear to auscultation kiana. ABSENT: rales, rhonchi, wheezes Cardiovascular exam: PRESENT: RRR. ABSENT: diastolic murmur, rubs, systolic murmur Pulses: PRESENT: normal dorsalis pedis pul Vascular exam: PRESENT: normal capillary refill GI/Abdominal exam: PRESENT: normal bowel sounds, soft. ABSENT: distended, guarding, mass, organolmegaly, rebound, tenderness Rectal exam: PRESENT: deferred Extremities exam: PRESENT: full ROM. ABSENT: calf tenderness, clubbing, pedal edema Neurological exam: PRESENT: alert, awake, oriented to person, oriented to place, oriented to time, oriented to situation, CN II-XII grossly intact. ABSENT: motor sensory deficit Psychiatric exam: PRESENT: appropriate affect, normal mood. ABSENT: homicidal ideation, suicidal ideation Skin exam: PRESENT: dry, intact, warm. ABSENT: cyanosis, rash Results Laboratory Results: 10/31/19 04:52 10/31/19 04:52 10/31/19 15:40 Carbonic Acid 1.63 H HCO3/H2CO3 Ratio 22:1 ABG pH 7.45 ABG pCO2 54.1 H ABG pO2 84.1 ABG HCO3 36.4 H ABG O2 Saturation 96.5 ABG Base Excess 10.7 FiO2 4L 10/27/19 15:20 Pleural Fluid Gram Stain - Final 10/27/19 15:20 Pleural Fluid Body Fluid Culture - Final NO AEROBIC OR ANAEROBIC ORGANISMS RECOVERED 10/26/19 03:34 Blood Blood Culture - Final NO GROWTH IN 5 DAYS 10/25/19 22:50 Troponin I < 0.012 NT-Pro-B Natriuret Pep 666 H Impressions: Chest/Abdomen CTA 10/26/19 00:02 IMPRESSION: 1. No obvious pulmonary embolism. 2. Emphysema in the lung bases. Opacification and volume loss posteriorly. Probable changes of increased intravascular volume. 3. Bilateral pleural effusions right greater than left. 4. Pericardial effusion or thickening. 5. Fatty infiltration of the liver. Possible mass in the posterior aspect of the right liver lobe. Thoracentesis Ultrasound 10/27/19 00:00 IMPRESSION: Successful ultrasound guided right-sided thoracentesis as above. Abdomen Ultrasound 10/30/19 00:00 IMPRESSION: 1. LIMITED STUDY. FATTY INFILTRATION OF THE LIVER. NO HEPATIC LESION IDENTIFIED. 2. GALLSTONES. 3. ILL-DEFINED HYPOECHOIC CORTICAL LESION IN THE RIGHT KIDNEY. THIS APPEARS TO CORRESPOND WITH A CALCIFIED CYST SEEN ON PRIOR CT ABDOMEN IN 2012. KUB X-Ray 10/30/19 07:53 IMPRESSION: The tip and side hole of the enteric tube project past the gastroesophageal junction and within the gastric lumen. Chest X-Ray 10/31/19 00:00 IMPRESSION: NO ACUTE RADIOGRAPHIC FINDING IN THE CHEST. Assessment & Plan - Diagnosis (1) Anemia Qualifiers: Anemia type: iron deficiency Iron deficiency anemia type: unspecified iron deficiency Qualified Code(s): D50.9 - Iron deficiency anemia, unspecified Is this a current diagnosis for this admission?: Yes Plan: Some part blood loss iron deficiency anemia, some part anemia of chronic disease. Will follow peripherally. - Time Time Spent with patient: 25-34 minutes
[2019-11-01] MEDS: FLUTICASONE/VILANTEROL 200-25 MCG/DOSE IH SCH (10:00)
[2019-11-01] MEDS: FUROSEMIDE 40 MG TABLET NG SCH ×2 (10:15→17:11)
[2019-11-01] MEDS: PREDNISONE 20 MG TABLET NG SCH (10:15)
[2019-11-01] MEDS: BUSPIRONE HCL 10 MG TABLET NG SCH ×2 (10:15→21:28)
--- NOTE | 2019-11-01 15:04 | PDOC PROGRESS REPORT ---
Subjective Progress Note for:: 11/01/19 Subjective:: This is a 74-year-old female with anemia. Surgery has been consulted for work- up of her anemia. The patient continues to report shortness of breath. She is tearful today. She denies chest pain, fevers, chills, nausea, vomiting, hematochezia, hematemesis, dizziness, abdominal pain. Reason For Visit: TACHYCARDIA BRACHITIS,COPD EXACERBATION PLEURAL Physical Exam Vital Signs: Temp Pulse Resp BP Pulse Ox 97.9 F 118 H 18 133/52 H 96 11/01/19 07:58 11/01/19 14:16 11/01/19 14:16 11/01/19 07:58 11/01/19 14:16 Intake & Output 10/31/19 11/01/19 11/02/19 06:59 06:59 06:59 Intake Total 1200 1410 720 Output Total 700 1950 Balance 500 -540 720 Weight 63.2 kg 61.5 kg General appearance: PRESENT: no acute distress, cooperative Head exam: PRESENT: atraumatic, normocephalic Eye exam: PRESENT: EOMI. ABSENT: scleral icterus Mouth exam: PRESENT: moist, neck supple Neck exam: ABSENT: tenderness, thyromegaly, tracheal deviation Respiratory exam: PRESENT: tachypnea - Mild Cardiovascular exam: ABSENT: tachycardia Vascular exam: PRESENT: normal capillary refill GI/Abdominal exam: PRESENT: soft. ABSENT: distended, firm, guarding, rigid, tenderness Rectal exam: PRESENT: deferred Extremities exam: ABSENT: clubbing Musculoskeletal exam: ABSENT: deformity Neurological exam: PRESENT: alert, awake, oriented to person, oriented to place, oriented to time, oriented to situation Psychiatric exam: PRESENT: anxious. ABSENT: agitated, depressed Focused psych exam: ABSENT: delusional Skin exam: ABSENT: cyanosis, erythema, jaundice Results Laboratory Results: 10/31/19 04:52 10/31/19 04:52 10/31/19 15:40 Carbonic Acid 1.63 H HCO3/H2CO3 Ratio 22:1 ABG pH 7.45 ABG pCO2 54.1 H ABG pO2 84.1 ABG HCO3 36.4 H ABG O2 Saturation 96.5 ABG Base Excess 10.7 FiO2 4L 10/25/19 22:50 Troponin I < 0.012 NT-Pro-B Natriuret Pep 666 H Impressions: Chest/Abdomen CTA 10/26/19 00:02 IMPRESSION: 1. No obvious pulmonary embolism. 2. Emphysema in the lung bases. Opacification and volume loss posteriorly. Probable changes of increased intravascular volume. 3. Bilateral pleural effusions right greater than left. 4. Pericardial effusion or thickening. 5. Fatty infiltration of the liver. Possible mass in the posterior aspect of the right liver lobe. Thoracentesis Ultrasound 10/27/19 00:00 IMPRESSION: Successful ultrasound guided right-sided thoracentesis as above. Abdomen Ultrasound 10/30/19 00:00 IMPRESSION: 1. LIMITED STUDY. FATTY INFILTRATION OF THE LIVER. NO HEPATIC LESION IDENTIFIED. 2. GALLSTONES. 3. ILL-DEFINED HYPOECHOIC CORTICAL LESION IN THE RIGHT KIDNEY. THIS APPEARS TO CORRESPOND WITH A CALCIFIED CYST SEEN ON PRIOR CT ABDOMEN IN 2011. KUB X-Ray 10/30/19 07:53 IMPRESSION: The tip and side hole of the enteric tube project past the gastroesophageal junction and within the gastric lumen. Chest X-Ray 10/31/19 00:00 IMPRESSION: NO ACUTE RADIOGRAPHIC FINDING IN THE CHEST. Assessment & Plan - Diagnosis (1) Anemia Qualifiers: Anemia type: iron deficiency Iron deficiency anemia type: unspecified iron deficiency Qualified Code(s): D50.9 - Iron deficiency anemia, unspecified Is this a current diagnosis for this admission?: Yes - Time Time Spent with patient: Less than 15 minutes - Plan Summary Plan Summary: This is a 74-year-old female with anemia. The patient reports that she is "too sick to have a colonoscopy at this time". The patient reports continued shortness of breath and malaise. She has expressed an interest in "getting better" before having her colonoscopy. This is reasonable. Surgery will sign off at this time. If the patient desires EGD and colonoscopy, she may follow-up as an outpatient. If she changes her mind, please renotify surgery.
[2019-11-01] MEDS ORDERED: NORMAL SALINE 1000 ML 500 ML IV ONE (17:00)
[2019-11-01] MEDS: PANTOPRAZOLE SODIUM 40 MG TABLET.DR PO SCH (17:11)
[2019-11-01] MEDS ORDERED: HYDROXYZINE HCL 10 MG TABLET PO PRN (17:41)
--- NOTE | 2019-11-01 17:54 | PDOC PROGRESS REPORT ---
Subjective Progress Note for:: 11/01/19 Subjective:: Patient states she feels well today. Patient denies any shortness of breath during encounter. We discussed possibility of revisiting endoscopic evaluation given that patient has continued to have SPO2 in the 90s on 2 L nasal cannula on the follow-up while upright and also while supine. CheST x-ray yesterday evening did show clear lungs without any consolidation or effusions. Patient just seems to be at her baseline hypoxia requiring 2 L from her COPD. Upon d iscussion of whether or not to revisit endoscopy, patient expresses that at this time she does not want to undergo any endoscopy until she fully recovers from her recent fracture and she is back on her feet. States that she feels to have deteriorated from a mobility standpoint and wants to undergo therapy first and get back on her feet before revisiting the issue of endoscopy. Raised the issue of palliative care with patient and patient expresses that she does not want hospice but that she would like to get well first before pursuing further evaluation for anemia. Reason For Visit: TACHYCARDIA BRACHITIS,COPD EXACERBATION PLEURAL Physical Exam Vital Signs: Temp Pulse Resp BP Pulse Ox 97.7 F 127 H 17 116/64 92 11/01/19 15:52 11/01/19 15:52 11/01/19 15:52 11/01/19 15:52 11/01/19 15:52 Intake & Output 10/31/19 11/01/19 11/02/19 06:59 06:59 06:59 Intake Total 1200 1410 720 Output Total 700 1950 Balance 500 -540 720 Weight 63.2 kg 61.5 kg General appearance: PRESENT: no acute distress, cooperative Neck exam: ABSENT: JVD Respiratory exam: PRESENT: clear to auscultation kiana, unlabored. ABSENT: tachypnea, wheezes Cardiovascular exam: PRESENT: RRR, +S1, +S2. ABSENT: tachycardia GI/Abdominal exam: PRESENT: normal bowel sounds, soft. ABSENT: rebound, rigid, tenderness Neurological exam: PRESENT: alert, awake, oriented to person, oriented to place, oriented to time Skin exam: ABSENT: jaundice Results Laboratory Results: 10/31/19 04:52 10/31/19 04:52 10/25/19 22:50 Troponin I < 0.012 NT-Pro-B Natriuret Pep 666 H Impressions: Chest/Abdomen CTA 10/26/19 00:02 IMPRESSION: 1. No obvious pulmonary embolism. 2. Emphysema in the lung bases. Opacification and volume loss posteriorly. Probable changes of increased intravascular volume. 3. Bilateral pleural effusions right greater than left. 4. Pericardial effusion or thickening. 5. Fatty infiltration of the liver. Possible mass in the posterior aspect of the right liver lobe. Thoracentesis Ultrasound 10/27/19 00:00 IMPRESSION: Successful ultrasound guided right-sided thoracentesis as above. Abdomen Ultrasound 10/30/19 00:00 IMPRESSION: 1. LIMITED STUDY. FATTY INFILTRATION OF THE LIVER. NO HEPATIC LESION IDENTIFIED. 2. GALLSTONES. 3. ILL-DEFINED HYPOECHOIC CORTICAL LESION IN THE RIGHT KIDNEY. THIS APPEARS TO CORRESPOND WITH A CALCIFIED CYST SEEN ON PRIOR CT ABDOMEN IN 2011. KUB X-Ray 10/30/19 07:53 IMPRESSION: The tip and side hole of the enteric tube project past the gastroesophageal junction and within the gastric lumen. Chest X-Ray 10/31/19 00:00 IMPRESSION: NO ACUTE RADIOGRAPHIC FINDING IN THE CHEST. Assessment and Plan - Diagnosis (1) Acute on chronic respiratory failure with hypoxemia Is this a current diagnosis for this admission?: Yes Plan: Likely secondary to COPD complicated by pleural effusions Patient is status post thoracentesis 10/27/19 Incentive spirometer to help with the compressive atelectasis. Repeat chest x-ray done yesterday after an episode at the endoscopy suite shows clear lungs with resolution of effusion. Blood gas on 4 L yesterday showed PO2 of 80s mmHg and O2 sats of 96%. Pulse oximetry measured today shows SPO2 in the low to mid 90s while upright and in the low 90s while supine all on 2 L nasal cannula. At this point I really do believe that patient's hypoxia is at baseline secondary to her COPD requiring only 2 L nasal cannula. (2) Chronic hypercapnic respiratory failure Is this a current diagnosis for this admission?: Yes Plan: Secondary to COPD. Her acute exacerbation seems to have pretty much resolved at this point her lungs sounds are clear. Will opt to discharge patient on nocturnal BiPAP back to SNF if patient is agreeable to use it (3) Pleural effusion, transudate Is this a current diagnosis for this admission?: Yes Plan: s/p thoracentesis on 10/27/2019 urinating 400 cc of transudate of fluid. Cytology negative for malignancy. Possible concern that this could be due to diastolic heart failure. Lasix 40 mg twice daily Chest x-ray yesterday evening showed clear lungs with resolution of effusion (4) Acute on chronic diastolic heart failure Is this a current diagnosis for this admission?: Yes Plan: Echo showing grade 2 diastolic dysfunction, EF over 70% and only mild TR. BNP is only very mildly elevated in the 600s which is even below her prior baseline. Lasix 40 mg twice daily p.o. BP optimization (5) Anemia Qualifiers: Anemia type: iron deficiency Iron deficiency anemia type: unspecified iron deficiency Qualified Code(s): D50.9 - Iron deficiency anemia, unspecified Is this a current diagnosis for this admission?: Yes Plan: History of iron deficiency anemia. On supportive transfusions as outpatient with Dr. Thomas. Hematology following. Patient received 2 units of blood on 10/29/2019 At this point, patient opting to forego endoscopic evaluation until she completes her physical therapy and is back on her feet. Conservative management for now. Patient may need recurrent transfusions. If H&H is stable tomorrow will plan towards discharge (6) History of fracture of leg Is this a current diagnosis for this admission?: Yes Plan: Patient was placed on low-dose Eliquis for DVT prophylaxis following right knee fracture with surgical fixation and [facility]. Currently Eliquis on hold due to GI bleed and significant anemia. (7) COPD (chronic obstructive pulmonary disease) Qualifiers: COPD type: emphysema Emphysema type: unspecified Qualified Code(s): J43.9 - Emphysema, unspecified Is this a current diagnosis for this admission?: Yes Plan: Continue breo and prn xopenex. No active wheezing currently. Prednisone discontinued as acute exacerbation has resolved. (8) Liver mass, right lobe Is this a current diagnosis for this admission?: Yes Plan: Noted incidentally of a possible ? right lobe mass on chest CT. however focused evaluation with right upper quadrant ultrasound does not show any liver mass hence ruled out. - Time Time Spent with patient: 15-24 minutes
--- NOTE | 2019-11-01 20:10 | EKG REPORT ---
SEVERITY:- ABNORMAL ECG - SINUS TACHYCARDIA PROBABLE POSTERIOR INFARCT : Confirmed by: Unruly Walker MD 01-Nov-2019 20:09:26
--- NOTE | 2019-11-01 20:25 | ADVANCED CARE ---
- Diagnosis (1) Acute on chronic respiratory failure with hypoxemia Diagnosis Current: Yes (4) Acute on chronic diastolic heart failure Diagnosis Current: Yes (5) Anemia Diagnosis Current: Yes (7) COPD (chronic obstructive pulmonary disease) Diagnosis Current: Yes Attendance: Patient and her Resuscitation Status: Full Code Discussion: I discussed with patient on whether or not to revisit endoscopy, patient expresses that at this time she does not want to undergo any endoscopy until she fully recovers from her recent fracture and she is back on her feet. States that she feels to have deteriorated from a mobility standpoint and wants to undergo therapy first and get back on her feet before revisiting the issue of endoscopy. Raised the issue of palliative care with patient and patient expresses that she does not want hospice but that she would like to get well first before pursuing further evaluation for anemia. Patient wants full treatment and states that she wants to live for a long time but to postpone endoscopy. Open to having further conversations with palliative care team however. Time Spent: 16 mins
[2019-11-02] MEDS: LEVALBUTEROL HCL NEB 1.25 MG/3 ML AMPUL NEB SCH ×4 (02:15→20:35)
[2019-11-02] MEDS: GUAIFENESIN SYRP 200 MG/10 ML UDC NG SCH ×2 (02:39→05:17)
[2019-11-02 04:58] LABS: HEMATOCRIT 31.1 % (36.0-47.0); HEMOGLOBIN 10.4 g/dL (12.0-15.5); MEAN CORPUSCULAR HEMOGLOBIN 29.3 pg (27.0-33.4); MEAN CORPUSCULAR HGB CONC 33.4 g/dL (32.0-36.0); MEAN CORPUSCULAR VOLUME 88 fl (80-97); PLATELET COUNT 237 10^3/uL (150-450); RED BLOOD COUNT 3.54 10^6/uL (3.72-5.28); RED CELL DISTRIBUTION WIDTH 20.2 % (11.5-14.0); WHITE BLOOD COUNT 10.8 10^3/uL (4.0-10.5)
[2019-11-02] MEDS: PANTOPRAZOLE SODIUM 40 MG TABLET.DR PO SCH ×2 (05:15→17:29)
[2019-11-02 05:24] LABS: BLOOD UREA NITROGEN 18 mg/dL (7-20); CALCIUM 7.9 mg/dL (8.4-10.2); CHLORIDE 93 mmol/L (98-107); GLUCOSE 91 mg/dL (75-110); POTASSIUM 3.2 mmol/L (3.6-5.0)
[2019-11-02 05:55] LABS: ANION GAP 3 (5-19)
[2019-11-02 05:56] LABS: CARBON DIOXIDE 40 mmol/L (22-30)
[2019-11-02] MEDS ORDERED: ACETAMINOPHEN 325 MG TABLET PO PRN (08:28)
[2019-11-02] MEDS ORDERED: OXYCODONE HCL IR 5 MG TABLET PO PRN (08:30)
[2019-11-02 09:16] LABS: VENOUS BLOOD BASE EXCESS 14.7 mmol/L; VENOUS BLOOD HCO3 40.6 mmol/L (20-32); VENOUS BLOOD PH 7.47 (7.30-7.42)
[2019-11-02] MEDS: GUAIFENESIN SYRP 200 MG/10 ML UDC PO SCH ×4 (09:29→21:36)
[2019-11-02] MEDS: FLUTICASONE/VILANTEROL 200-25 MCG/DOSE IH SCH (09:34)
[2019-11-02] MEDS: BUSPIRONE HCL 10 MG TABLET PO SCH ×2 (09:35→21:36)
[2019-11-02] MEDS ORDERED: METOPROLOL SUCCINATE 25 MG TAB.SR.24H PO SCH ×3 (10:00→22:00)
[2019-11-02] MEDS ORDERED: NORMAL SALINE 1000 ML 500 ML IV ONE (10:53)
--- NOTE | 2019-11-02 18:30 | PDOC PROGRESS REPORT ---
Subjective Progress Note for:: 11/02/19 Subjective:: Patient feels well today. Has not been able to ambulate much pain with physical therapy. Patient is agreeable to going to SNF for rehabilitation. Patient denies any shortness of breath. Reason For Visit: TACHYCARDIA BRACHITIS,COPD EXACERBATION PLEURAL Physical Exam Vital Signs: Temp Pulse Resp BP Pulse Ox 98.2 F 110 H 16 116/50 L 93 11/02/19 08:03 11/02/19 14:10 11/02/19 14:10 11/02/19 08:03 11/02/19 14:10 Intake & Output 11/01/19 11/02/19 11/03/19 06:59 06:59 06:59 Intake Total 1410 1671 Output Total 1950 1325 Balance -540 346 Weight 61.5 kg 60.3 kg 60.3 kg General appearance: PRESENT: no acute distress, cooperative Neck exam: ABSENT: JVD Respiratory exam: PRESENT: clear to auscultation kiana, unlabored. ABSENT: tachypnea, wheezes Cardiovascular exam: PRESENT: +S1, +S2, tachycardia. ABSENT: irregular rhythm GI/Abdominal exam: PRESENT: normal bowel sounds, soft. ABSENT: rebound, rigid, tenderness Musculoskeletal exam: ABSENT: ambulatory Neurological exam: PRESENT: alert, awake, oriented to person, oriented to place, oriented to time Results Laboratory Results: 11/02/19 04:47 11/02/19 04:47 11/02/19 11/02/19 11/02/19 04:47 04:47 08:47 WBC 10.8 H RBC 3.54 L Hgb 10.4 L Hct 31.1 L MCV 88 MCH 29.3 MCHC 33.4 RDW 20.2 H Plt Count 237 VBG pH 7.47 H VBG pCO2 57.0 VBG HCO3 40.6 H VBG Base Excess 14.7 Sodium 135.5 L Potassium 3.2 L Chloride 93 L Carbon Dioxide 40 H* Anion Gap 3 L BUN 18 Creatinine 0.48 L Est GFR ( Amer) > 60 Glucose 91 Calcium 7.9 L 10/25/19 22:50 Troponin I < 0.012 NT-Pro-B Natriuret Pep 666 H Impressions: Chest/Abdomen CTA 10/26/19 00:02 IMPRESSION: 1. No obvious pulmonary embolism. 2. Emphysema in the lung bases. Opacification and volume loss posteriorly. Probable changes of increased intravascular volume. 3. Bilateral pleural effusions right greater than left. 4. Pericardial effusion or thickening. 5. Fatty infiltration of the liver. Possible mass in the posterior aspect of the right liver lobe. Thoracentesis Ultrasound 10/27/19 00:00 IMPRESSION: Successful ultrasound guided right-sided thoracentesis as above. Abdomen Ultrasound 10/30/19 00:00 IMPRESSION: 1. LIMITED STUDY. FATTY INFILTRATION OF THE LIVER. NO HEPATIC LESION IDENTIFIED. 2. GALLSTONES. 3. ILL-DEFINED HYPOECHOIC CORTICAL LESION IN THE RIGHT KIDNEY. THIS APPEARS TO CORRESPOND WITH A CALCIFIED CYST SEEN ON PRIOR CT ABDOMEN IN 2011. KUB X-Ray 10/30/19 07:53 IMPRESSION: The tip and side hole of the enteric tube project past the gastroesophageal junction and within the gastric lumen. Chest X-Ray 10/31/19 00:00 IMPRESSION: NO ACUTE RADIOGRAPHIC FINDING IN THE CHEST. Assessment and Plan - Diagnosis (1) Acute on chronic respiratory failure with hypoxemia Is this a current diagnosis for this admission?: Yes (2) Chronic hypercapnic respiratory failure Is this a current diagnosis for this admission?: Yes (3) Pleural effusion, transudate Is this a current diagnosis for this admission?: Yes (4) Acute on chronic diastolic heart failure Is this a current diagnosis for this admission?: Yes (5) Anemia Qualifiers: Anemia type: iron deficiency Iron deficiency anemia type: unspecified iron deficiency Qualified Code(s): D50.9 - Iron deficiency anemia, unspecified Is this a current diagnosis for this admission?: Yes (6) History of fracture of leg Is this a current diagnosis for this admission?: Yes (7) COPD (chronic obstructive pulmonary disease) Qualifiers: COPD type: emphysema Emphysema type: unspecified Qualified Code(s): J43.9 - Emphysema, unspecified Is this a current diagnosis for this admission?: Yes (8) Liver mass, right lobe Is this a current diagnosis for this admission?: Yes - Plan Summary Summary: Hold Lasix today given some contraction alkalosis. Encourage p.o. fluids. Wanted to give IV fluids blood patient declined IV as a hold IV access infiltrated. Patient in sinus tachycardia may be from dehydration from diuresis. Encourage p.o. hydration. Also placed on Toprol yesterday. PE ruled out from CTA. Patient denies any pain or shortness of breath at this time. Patient still hypoxic despite clear lungs on chest x-ray. Hypoxia likely secondary to COPD this is chronic and she will require continuation of oxygen upon return to SNF. Discharge planning working on return to SNF anticipated for tomorrow. Continue holding off on endoscopy as patient has requested this. Continue to monitor BMP - Time Time Spent with patient: 15-24 minutes
[2019-11-02] MEDS: METOPROLOL SUCCINATE 25 MG TAB.SR.24H PO SCH (21:36)
[2019-11-03] MEDS: GUAIFENESIN SYRP 200 MG/10 ML UDC PO SCH ×4 (01:33→13:50)
[2019-11-03] MEDS: LEVALBUTEROL HCL NEB 1.25 MG/3 ML AMPUL NEB SCH ×3 (02:10→13:45)
[2019-11-03 04:59] LABS: VENOUS BLOOD HCO3 39.6 mmol/L (20-32); VENOUS BLOOD PCO2 55.8 mmHg (35-63); VENOUS BLOOD PH 7.47 (7.30-7.42)
[2019-11-03] MEDS: PANTOPRAZOLE SODIUM 40 MG TABLET.DR PO SCH (05:10)
[2019-11-03 05:20] LABS: BLOOD UREA NITROGEN 19 mg/dL (7-20); CHLORIDE 93 mmol/L (98-107); GLUCOSE 97 mg/dL (75-110); POTASSIUM 3.3 mmol/L (3.6-5.0)
[2019-11-03 05:29] LABS: ANION GAP 2 (5-19); CARBON DIOXIDE 39 mmol/L (22-30)
[2019-11-03] MEDS: BUSPIRONE HCL 10 MG TABLET PO SCH (09:57)
[2019-11-03] MEDS: FLUTICASONE/VILANTEROL 200-25 MCG/DOSE IH SCH (09:57)
[2019-11-03] MEDS: METOPROLOL SUCCINATE 25 MG TAB.SR.24H PO SCH (09:57)
--- NOTE | 2019-11-03 13:02 | PDOC TRANSFER SUMMARY ---
Impression - Admit/DC Date/PCP Admission Date/Primary Care Provider: 10/26/19 01:28 ABBEY ARRIOLA MD Discharge Date: 11/03/19 - Discharge Diagnosis (1) Acute on chronic respiratory failure with hypoxemia Is this a current diagnosis for this admission?: Yes (2) Chronic hypercapnic respiratory failure Is this a current diagnosis for this admission?: Yes (3) Pleural effusion, transudate Is this a current diagnosis for this admission?: Yes (4) Acute on chronic diastolic heart failure Is this a current diagnosis for this admission?: Yes (5) Anemia Is this a current diagnosis for this admission?: Yes (6) History of fracture of leg Is this a current diagnosis for this admission?: Yes (7) COPD (chronic obstructive pulmonary disease) Is this a current diagnosis for this admission?: Yes (8) Liver mass, right lobe Is this a current diagnosis for this admission?: Yes (9) Sinus tachycardia Is this a current diagnosis for this admission?: Yes - Additional Information Resuscitation Status: Full Code Discharge Diet: Cardiac Discharge Activity: Supervised Activity Referrals: ABBEY ARRIOLA MD [Primary Care Provider] - (Follow-up with your primary care provider in 1 week) BRYN THOMAS MD [ACTIVE STAFF] - SHAYY WILKINS MD [ACTIVE STAFF] - Home Medications: Acetaminophen [Tylenol 325 mg Tablet] 650 mg PO Q8HP PRN 10/26/19 Albuterol Sulfate [Proair HFA Inhalation Aerosol 8.5 gm MDI] 2 puff IH Q4HP PRN 10/26/19 Ferrous Sulfate [Feosol 325 mg Tablet] 325 mg PO BID 10/26/19 Fluticasone/Salmeterol [Advair 250-50 Diskus 14 Dose/Diskus] 1 puff IH Q12 10/26/19 Furosemide [Lasix 40 mg Tablet] 40 mg PO DAILY 10/26/19 Multivitamin [Daily Multiple Vitamin] 1 tab PO DAILY 10/26/19 Oxycodone HCl [Oxy-Ir 5 mg Tablet] 5 mg PO Q6HP PRN 10/26/19 Buspirone HCl [Buspar 10 mg Tablet] 10 mg PO Q12 tablet 11/03/19 Hydroxyzine HCl [Atarax 10 mg Tablet] 10 mg PO TIDP PRN tablet 02/14/20 Ipratropium/Albuterol Sulfate [Duoneb 3 ml Ampul] 1 vial NEB TIDP PRN #0 11/03/19 Metoprolol Succinate [Toprol Xl 25 mg Tab.sr] 50 mg PO Q12 tab.sr.24h 11/03/19 Pantoprazole Sodium [Protonix [address] Tablet] 40 mg PO BID@0600,1700 tablet.dr 11/03/19 History of Present Illiness History of Present Illness: CEFERINO MOSELEY is a 74 year old female with a past medical history of COPD, chronic bronchitis, chronic anemia, anxiety, hypoalbuminemia, liver mass declining follow-up. [facility] from [facility] following rehab of a recent tib-fib fracture 7 days ago. She denies fever chills nausea vomiting. In the emergency room she is found to be tachycardic in the 120s CTA is negative for pulmonary emboli but significantly positive for moderate bilateral pulmonary effusions and emphysema. She receives treatment of albuterol, Atrovent, Solu- Medrol and referred to the hospitalist for admission. During evaluation she has multiple PVCs with sinus tachycardia and IV Cardizem bolus is initiated with p.o. Cardizem scheduled. She denies recent change in cardiac occasions and denies pain nausea or vomiting. Hospital Course Hospital Course: Patient's had a long stay in the hospital also have decided to discuss issues by problems as below. Notably, patient initially presented for evaluation of tachycardia and had some shortness of breath. She was noted to be in sinus tachycardia with some PVCs. Work-up as below. (1) Acute on chronic respiratory failure with hypoxemia Is this a current diagnosis for this admission?: Yes Plan: Chest CTA was negative for PE but did show bilateral pleural effusions on admission and compressive atelectasis. Patient is status post thoracentesis 10/27/19 Patient still desaturates to mid 80s when on room air though never symptomatic but improved into the 90s on 2 L only. Given patient's pleural effusions are only mild to minimal at this time following thoracentesis and diuresis, I believe hypoxia is chronic and secondary to her COPD. Continue with incentive spirometer to help with the remnant mild compressive atelectasis. Repeat chest x-ray done 2 days ago shows clear lungs with resolution of effusion. Patient is to continue on 2 L nasal cannula while at facility and should be qualified for home oxygen upon discharge (2) Chronic hypercapnic respiratory failure Is this a current diagnosis for this admission?: Yes Plan: Secondary to COPD. Her acute exacerbation seems to have pretty much resolved at this point her lungs sounds are clear. I would prefer that patient uses nocturnal BiPAP while at SNF however patient has refused to use nocturnal BiPAP on several occasions when he here in the hospital. (3) Pleural effusion, transudate Is this a current diagnosis for this admission?: Yes Plan: s/p thoracentesis on 10/27/2019 urinating 400 cc of transudate of fluid. Cytology negative for malignancy. Likely due to acute on chronic diastolic heart failure. Lasix 40 mg daily Chest x-ray on 11/01/2019 showed clear lungs with resolution of effusion (4) Acute on chronic diastolic heart failure Is this a current diagnosis for this admission?: Yes Plan: Echo showing grade 2 diastolic dysfunction, EF over 70% and only mild TR. BNP is only very mildly elevated in the 600s which is even below her prior baseline. Lasix 40 mg twice daily p.o. BP optimization. Continue Toprol-XL. (5) Anemia Qualifiers: Anemia type: iron deficiency Iron deficiency anemia type: unspecified iron deficiency Qualified Code(s): D50.9 - Iron deficiency anemia, unspecified Is this a current diagnosis for this admission?: Yes Plan: History of iron deficiency anemia. On supportive transfusions as outpatient with Dr. Thomas. Patient received 2 units of blood on 10/29/2019 for hemoglobin of 7.9 and suspected GI bleed. An attempt at upper and lower endoscopy was aborted because patient became hypoxic at that point. However, during the episode, patient was asymptomatic completely. ABG was done subsequently which showed PO2 in the 80s and O2 sats into 90s on 4 L nasal cannula. When patient returned to the floor, patient's pulse ox maintained in the 90s on 2 L making me suspect that there was an error in reading patient's SPO2 in the endoscopy suite. We discussed with patient about performing the endoscopy subsequently but now patient is opting to forego endoscopic evaluation and to just focus on completing her physical therapy and getting back on her feet for now. She may be interested in following up for repeat endoscopy in the future but is declining at times now. Conservative management for now. Patient can follow-up with Dr. Wilkins [GI] at a later date if patient later opts for endoscopic evaluation. Patient will likely need recurrent blood transfusions as previously scheduled with Dr. Thomas and as such he needs to follow-up with him in 1 week. Hemoglobin has remained stable for the past few days between 9.5 and 10.5 Palliative care discussions with palliative transfusions as needed were raised as well which patient is interested in upon completion physical therapy (6) History of fracture of leg Is this a current diagnosis for this admission?: Yes Plan: Patient was placed on low-dose Eliquis for DVT prophylaxis following right knee fracture with surgical fixation and [facility]. Currently Eliquis on hold due to GI bleed and significant anemia. (7) COPD (chronic obstructive pulmonary disease) Qualifiers: COPD type: emphysema Emphysema type: unspecified Qualified Code(s): J43.9 - Emphysema, unspecified Is this a current diagnosis for this admission?: Yes Plan: Continue breo and prn nebulizers. No active wheezing currently. Prednisone discontinued as acute exacerbation has resolved. (8) Liver mass, right lobe Is this a current diagnosis for this admission?: Yes Plan: Noted incidentally of a questionable right lobe liver mass on chest CT. however focused evaluation with right upper quadrant ultrasound does not show any liver mass hence ruled out. (9) sinus tachycardia CTA negative for PE. Continue Toprol-XL. Monitor blood pressures. Potential of anxiety playing a role. Other etiologies includes patient's anemia and chronic hypoxia. Currently heart rate controlled ranging in the 80s to 105. Kai palacios is comfortable at this time. Continue nasal cannula for correction of hypoxia. Buspirone for anxiety and as needed hydroxyzine as well. Physical Exam Vital Signs: Temp Pulse Resp BP Pulse Ox 97.6 F 81 16 96/38 L 95 11/03/19 07:48 11/03/19 09:00 11/03/19 09:00 11/03/19 07:48 11/03/19 09:00 Intake & Output 11/02/19 11/03/19 11/04/19 06:59 06:59 06:59 Intake Total 1671 1262 Output Total 1321 505 Balance 346 757 Weight 60.3 kg 61.2 kg General appearance: PRESENT: no acute distress, cooperative Neck exam: ABSENT: JVD Respiratory exam: PRESENT: clear to auscultation kiana, decreased breath sounds, unlabored. ABSENT: accessory muscle use, retraction, wheezes Cardiovascular exam: PRESENT: RRR, +S1, +S2. ABSENT: tachycardia GI/Abdominal exam: PRESENT: soft. ABSENT: rebound, rigid, tenderness Neurological exam: PRESENT: alert, awake, oriented to person, oriented to place, oriented to time Results Laboratory Results: WBC 10.8 10^3/uL (4.0-10.5) H 11/02/19 04:47 RBC 3.54 10^6/uL (3.72-5.28) L 11/02/19 04:47 Hgb 10.4 g/dL (12.0-15.5) L 11/02/19 04:47 Hct 31.1 % (36.0-47.0) L 11/02/19 04:47 MCV 88 fl (80-97) 11/02/19 04:47 MCH 29.3 pg (27.0-33.4) 11/02/19 04:47 MCHC 33.4 g/dL (32.0-36.0) 11/02/19 04:47 RDW 20.2 % (11.5-14.0) H 11/02/19 04:47 Plt Count 237 10^3/uL (150-450) 11/02/19 04:47 Lymph % (Auto) Not Reportable 10/30/19 15:41 Jones % (Auto) Not Reportable 10/30/19 15:41 Eos % (Auto) Not Reportable 10/30/19 15:41 Baso % (Auto) Not Reportable 10/30/19 15:41 Reticulocyte # 0.050 10^6/uL (0.028-0.122) 10/25/19 22:50 Absolute Neuts (auto) Not Reportable 10/30/19 15:41 Absolute Lymphs (auto) Not Reportable 10/30/19 15:41 Absolute Monos (auto) Not Reportable 10/30/19 15:41 Absolute Eos (auto) Not Reportable 10/30/19 15:41 Absolute Basos (auto) Not Reportable 10/30/19 15:41 Total Counted 100 10/30/19 15:41 Seg Neutrophils % Not Reportable 10/30/19 15:41 Seg Neuts % (Manual) 92 % (42-78) H 10/30/19 15:41 Band Neutrophils % 1 % (3-5) L 10/30/19 15:41 Lymphocytes % (Manual) 4 % (13-45) L 10/30/19 15:41 Monocytes % (Manual) 2 % (3-13) L 10/30/19 15:41 Eosinophils % (Manual) 0 % (0-6) 10/30/19 15:41 Basophils % (Manual) 0 % (0-2) 10/30/19 15:41 Metamyelocytes % 1 % (0-1) 10/30/19 15:41 Abs Neuts (Manual) 8.1 10^3/uL (1.7-8.2) 10/30/19 15:41 Abs Lymphs (Manual) 0.3 10^3/uL (0.5-4.7) L 10/30/19 15:41 Abs Monocytes (Manual) 0.2 10^3/uL (0.1-1.4) 10/30/19 15:41 Absolute Eos (Manual) 0.0 10^3/uL (0.0-0.6) 10/30/19 15:41 Abs Basophils (Manual) 0.0 10^3/uL (0.0-0.2) 10/30/19 15:41 Platelet Estimate Cancelled 10/30/19 14:34 Clumped Platelets PRESENT 10/30/19 15:41 Platelet Comment ADEQUATE 10/30/19 15:41 Hypochromasia SLIGHT 10/29/19 22:46 Poikilocytosis SLIGHT 10/30/19 15:41 Anisocytosis 2+ 10/30/19 15:41 Ovalocytes SLIGHT 10/30/19 15:41 Retic Count (auto) 1.41 % (0.66-2.85) 10/25/19 22:50 PT 16.4 SEC (11.4-15.4) H 10/27/19 05:59 INR 1.31 10/27/19 05:59 APTT 33.7 SEC (23.5-35.8) 10/27/19 05:59 Carbonic Acid 1.63 mmol/L (1.05-1.35) H 10/31/19 15:40 HCO3/H2CO3 Ratio 22:1 10/31/19 15:40 ABG pH 7.45 (7.35-7.45) 10/31/19 15:40 ABG pCO2 54.1 mmHg (35-45) H 10/31/19 15:40 ABG pO2 84.1 mmHg (80-100) 10/31/19 15:40 ABG HCO3 36.4 mmol/L (20-24) H 10/31/19 15:40 ABG Total CO2 38.1 mmol/L (21-25) H 10/31/19 15:40 ABG O2 Saturation 96.5 % (94-98) 10/31/19 15:40 ABG Base Excess 10.7 mmol/L 10/31/19 15:40 VBG pH 7.47 (7.30-7.42) H 11/03/19 04:45 VBG pCO2 55.8 mmHg (35-63) 11/03/19 04:45 VBG HCO3 39.6 mmol/L (20-32) H 11/03/19 04:45 VBG Base Excess 14.0 mmol/L 11/03/19 04:45 FiO2 4L 10/31/19 15:40 Sodium 134.4 mmol/L (137-145) L 11/03/19 04:45 Potassium 3.3 mmol/L (3.6-5.0) L 11/03/19 04:45 Chloride 93 mmol/L (98-107) L 11/03/19 04:45 Carbon Dioxide 39 mmol/L (22-30) H 11/03/19 04:45 Anion Gap 2 (5-19) L 11/03/19 04:45 BUN 19 mg/dL (7-20) 11/03/19 04:45 Creatinine 0.46 mg/dL (0.52-1.25) L 11/03/19 04:45 Est GFR ( Amer) > 60 (>60) 11/03/19 04:45 Est GFR (MDRD) Non-Af > 60 (>60) 11/03/19 04:45 Glucose 97 mg/dL (75-110) 11/03/19 04:45 Calcium 8.0 mg/dL (8.4-10.2) L 11/03/19 04:45 Magnesium 2.1 mg/dL (1.6-2.3) 10/28/19 04:48 Iron 39.0 ug/dL (37-170) 10/25/19 22:50 TIBC 207 ug/dL (250-450) L 10/25/19 22:50 % Saturation 19 % 10/25/19 22:50 Ferritin 241.00 ng/mL (11.1-264.0) 10/25/19 22:50 Total Bilirubin 0.7 mg/dL (0.2-1.3) 10/30/19 05:22 Direct Bilirubin 0.4 mg/dL (0.0-0.4) 10/30/19 05:22 Neonat Total Bilirubin Not Reportable 10/30/19 05:22 Neonat Direct Bilirubin Not Reportable 10/30/19 05:22 Neonat Indirect Bili Not Reportable 10/30/19 05:22 AST 34 U/L (14-36) 10/30/19 05:22 ALT 26 U/L (<35) 10/30/19 05:22 Alkaline Phosphatase 118 U/L (38-126) 10/30/19 05:22 Lactate Dehydrogenase 181 U/L (120-246) 10/27/19 05:59 Troponin I < 0.012 ng/mL 10/25/19 22:50 NT-Pro-B Natriuret Pep 666 pg/mL (<450) H 10/25/19 22:50 Total Protein 5.9 g/dL (6.3-8.2) L 10/30/19 05:22 Albumin 3.0 g/dL (3.5-5.0) L 10/30/19 05:22 Prealbumin 7.3 mg/dL (17.6-36.0) L 10/26/19 09:52 Triglycerides 80 mg/dL (<150) 10/28/19 04:48 Cholesterol 103.01 mg/dL (0-200) 10/28/19 04:48 LDL Cholesterol Direct 63 mg/dL (<100) 10/28/19 04:48 VLDL Cholesterol 16.0 mg/dL (10-31) 10/28/19 04:48 HDL Cholesterol 34 mg/dL (>40) L 10/28/19 04:48 Tumor Marker AFP 1.3 ng/mL (0.0-8.3) 10/27/19 05:59 Vitamin B12 952.0 pg/mL (239-931) H 10/25/19 22:50 Folate > 20.00 ng/mL (>2.76) 10/25/19 22:50 Random Cortisol 16.60 ug/dL (None Established) 10/26/19 22:50 Fluid Type PLEURAL 10/27/19 15:20 Fluid Source LUNG 10/27/19 15:20 Fluid Color ORANGE 10/27/19 15:20 Fluid Appearance CLOUDY 10/27/19 15:20 Fluid Viscosity LIQUID 10/27/19 15:20 Fluid WBC 192 /uL 10/27/19 15:20 Fluid RBC 5545 /uL 10/27/19 15:20 Fluid Seg Neutrophils 25 % 10/27/19 15:20 Fluid Lymphocytes 62 % 10/27/19 15:20 Fluid Monocytes 13 % 10/27/19 15:20 Fluid Eosinophils 0 % 10/27/19 15:20 Fluid Basophils 0 % 10/27/19 15:20 Fluid Glucose 102 mg/dL (.) 10/27/19 15:20 Fluid Total Protein 2.5 g/dL (.) 10/27/19 15:20 Fluid LDH 175 IU/L (.) 10/27/19 15:20 Stool Occult Blood POSITIVE (NEGATIVE) 10/29/19 12:40 Slides for Path Review Cancelled 10/30/19 14:34 Blood Type O POSITIVE 10/29/19 08:35 Antibody Screen POSITIVE 10/29/19 08:35 Antibody Identification Anti-E Anti-Jkb 10/29/19 08:35 Antibody Identification Anti-E Anti-Jkb 10/29/19 08:35 Crossmatch See Detail 10/29/19 08:35 10/25/19 22:50 Troponin I < 0.012 NT-Pro-B Natriuret Pep 666 H Impressions: Chest X-Ray 10/25/19 22:49 IMPRESSION: 1. Interval development of small bilateral pleural effusions with likely underlying consolidation or atelectasis. Chest/Abdomen CTA 10/26/19 00:02 IMPRESSION: 1. No obvious pulmonary embolism. 2. Emphysema in the lung bases. Opacification and volume loss posteriorly. Probable changes of increased intravascular volume. 3. Bilateral pleural effusions right greater than left. 4. Pericardial effusion or thickening. 5. Fatty infiltration of the liver. Possible mass in the posterior aspect of the right liver lobe. Chest X-Ray 10/27/19 00:00 IMPRESSION: NO PNEUMOTHORAX FOLLOWING THORACENTESIS. DECREASE IN THE RIGHT PLEURAL EFFUSION. CHRONIC PLEURAL AND PARENCHYMAL SCARRING. Thoracentesis Ultrasound 10/27/19 00:00 IMPRESSION: Successful ultrasound guided right-sided thoracentesis as above. Chest X-Ray 10/27/19 18:00 IMPRESSION: NO ACUTE FINDINGS. Abdomen Ultrasound 10/30/19 00:00 IMPRESSION: 1. LIMITED STUDY. FATTY INFILTRATION OF THE LIVER. NO HEPATIC LESION IDENTIFIED. 2. GALLSTONES. 3. ILL-DEFINED HYPOECHOIC CORTICAL LESION IN THE RIGHT KIDNEY. THIS APPEARS TO CORRESPOND WITH A CALCIFIED CYST SEEN ON PRIOR CT ABDOMEN IN 2011. KUB X-Ray 10/30/19 07:53 IMPRESSION: The tip and side hole of the enteric tube project past the gastroesophageal junction and within the gastric lumen. Chest X-Ray 10/31/19 00:00 IMPRESSION: NO ACUTE RADIOGRAPHIC FINDING IN THE CHEST. Plan Time Spent: Greater than 30 Minutes Stroke Is this a Stroke Patient?: No Acute Heart Failure - Is this a Heart Failure Patient?: Yes Documentation of LVEF assessment?: Yes LVEF < 40%?: No- if no continue to question #3 3. Anticoagulant therapy for permanect/persistent/paraoxysmal Afib or Aflutter: N/A
[2019-11-03 15:09] VITALS: BP 93/47
== END 2019-11-03 14:45 | DRG 189 ==
LOC: ER 21:58 → EH 10-26 01:28 → 3S 10-26 18:55 → 3W 10-27 14:05
PROVIDERS: ADMIT Internal Medicine; ATTEND Internal Medicine
PROC: 0W993ZX Drainage of Right Pleural Cavity, Percutaneous Approach, Diagnostic (ICD-10-PCS; principal; 2019-10-27)
PROC: 30233N1 Transfusion of Nonautologous Red Blood Cells into Peripheral Vein, Percutaneous Approach (ICD-10-PCS; 2019-10-29)
DX: J96.21 Acute and chronic respiratory failure with hypoxia (principal); I50.33 Acute on chronic diastolic (congestive) heart failure; J90 Pleural effusion, not elsewhere classified; E46 Unspecified protein-calorie malnutrition; J43.9 Emphysema, unspecified; R00.0 Tachycardia, unspecified; K75.81 Nonalcoholic steatohepatitis (NASH); D50.8 Other iron deficiency anemias; R16.0 Hepatomegaly, not elsewhere classified; Z99.81 Dependence on supplemental oxygen; Z79.01 Long term (current) use of anticoagulants; Z79.51 Long term (current) use of inhaled steroids; Z79.899 Other long term (current) drug therapy
CPT/HCPCS: 32557; 36415; 36430; 36600; 71045; 71275; 74018; 76705; 80048; 80053; 80061; 82105; 82272; 82533; 82607; 82728; 82746; 82803; 82945; 83540; 83550; 83615; 83735; 83880; 84134; 84157; 84484; 85025; 85027; 85045; 85610; 85730; 86850; 86870; 86900; 86901; 86902; 86920; 86922; 87040; 87070; 87075; 87205; 88305; 88341; 88342; 89050; 93005; 93010; 93306; 94640; 94660; 94667; 94668; 94799; 96374; 99285; J0692; J1250; J1644; J2405; J2704; J2930; J3480; J3490; J7030; J7060; J7512; J7620; P9016; P9047